=== PATIENT | female | born 1955 | race American Indian/Alaskan Native ===

== ENCOUNTER 2016-06-05 08:22 | Inpatient (IN) | payer MEDICARE ==
[2016-06-05 09:21] LABS: Bilirubin,Urine NEG (Negative); Blood,Urine NEG (Negative); Ketones,Urine 20 mg/dL (Negative); Leukocyte Esterase,Urine NEG (Negative); Nitrite,Urine NEG (Negative); Protein,Urine <15 mg/dL mg/dL (Negative); RBC,Urine < 1.0 /HPF (0.0-6.0); Urobilinogen,Urine < 2.0 mg/dL (<2.0); WBC,Urine < 1.0 /HPF (0.0-6.0)
[2016-06-05 09:25] LABS: Basophils % (Auto) 0.5 % (0.0-1.8); Eosinophils % (Auto) 0.1 % (0.0-4.3); Hematocrit 39.9 % (30.3-42.9); Hemoglobin 12.5 gm/dl (10.1-14.3); Mean Corpuscular HGB Conc 31 % (30-34); Mean Corpuscular Hemoglobin 30 pg (28-32); Mean Corpuscular Volume 95 fl (79-97); Platelet Count 229 K/mm3 (140-440); Red Blood Count 4.22 M/mm3 (3.65-5.03); Red Cell Distribution Width 14.3 % (13.2-15.2); White Blood Count 15.4 K/mm3 (4.5-11.0)
[2016-06-05 09:38] LABS: BUN/Creatinine Ratio 17.14; Calcium 9.4 mg/dL (8.4-10.2); Chloride 90.4 mmol/L (98-107); Potassium 5.1 mmol/L (3.6-5.0)
[2016-06-05 09:41] LABS: B-Hydroxybutyrate 59.2 mg/dL (0.2-2.8)
[2016-06-05] MEDS ORDERED: NACL 0.9% 1000 ML IV ONE (09:43)
[2016-06-05] MEDS ORDERED: NACL 0.9% 1000 ML 1,000 ML IV ONE (09:56)
[2016-06-05] MEDS ORDERED: D50W (25GM) IV PRN (09:57)
[2016-06-05] MEDS ORDERED: BABY ASPIRIN PO ONE (09:59)
--- NOTE | 2016-06-05 09:59 | Emergency Department Report ---
HPI - General Chief Complaint: Nausea/Vomiting/Diarrhea - HPI HPI: The patient is a 60-year-old female with a history of diabetes, who presents for evaluation of abdominal pain, and nausea and vomiting. The patient reports generalized sharp in quality abdominal pain since last night, moderate in severity, exacerbated with retching, and associated with nausea and multiple episodes of nonbilious, nonbloody emesis. She states that her vomiting has been severe and persistent. The patient denies fever, diarrhea, blood in the stool, dark tarry stool, dysuria, hematuria, flank pain, genital discharge, inability to pass flatus. ED Past Medical Hx - Past Medical History Previous Medical History?: Yes Hx Hypertension: Yes Hx CVA: Yes (Last stroke 2014) Hx Congestive Heart Failure: No Hx Diabetes: Yes Hx GERD: Yes Hx Arthritis: Yes Hx Asthma: No Hx COPD: No Additional medical history: 2 herniated discs - Surgical History Past Surgical History?: Yes Additional Surgical History: hyst. - Social History Smoking Status: Never Smoker Substance Use Type: Non Opiate Pain, Prescribed - Medications Home Medications: Home Medications Medication Instructions Recorded Confirmed Last Taken Type Baclofen 10 mg PO BID 09/19/13 06/05/16 06/04/16 History Carvedilol [Coreg] 25 mg PO BID 09/19/13 06/05/16 06/04/16 History Insulin Regular, Human [HumuLIN R] See Protocol SQ AC 09/19/13 06/05/16 1 Day Ago History amLODIPine [Norvasc] 10 mg PO DAILY 09/19/13 06/05/16 06/04/16 History Aspirin [Aspirin BABY CHEW TAB] 81 mg PO DAILY 09/22/13 06/05/16 1 Day Ago History Ibuprofen/Oxycodone HCl 10 mg PO Q6H PRN 09/22/13 05/27/15 04/06/14 History [oxyCODONE-Ibuprofen 5/400 Tab] Insulin Glargine,Hum.rec.anlog 20 units SQ BID #1 vial 09/22/13 05/27/15 Rx [Lantus] Losartan [Cozaar] 100 mg PO DAILY 09/22/13 06/05/16 06/04/16 History Insulin Glargine,Hum.rec.anlog See Protocol SQ HS 05/27/15 06/05/16 1 Day Ago History [Lantus] Lovastatin [Altoprev] 20 mg PO QPM 05/27/15 06/05/16 06/04/16 History Omeprazole [PriLOSEC] 20 mg PO QDAY 05/27/15 06/05/16 06/04/16 History Clopidogrel Bisulfate [Plavix] 75 mg PO DAILY 06/05/16 06/05/16 Unknown History Diazepam Tab [Valium] 5 mg PO QHS PRN 06/05/16 06/05/16 Unknown History Meclizine [Antivert] 25 mg PO TID PRN 06/05/16 06/05/16 Unknown History Vitamin D3 1 tab PO HS 06/05/16 06/05/16 Unknown History traMADol [Ultram] 50 mg PO Q6HR PRN 06/05/16 06/05/16 Unknown History ED Review of Systems ROS: Stated complaint: NAUSEA/VOMITING Other details as noted in HPI Constitutional: denies: fever ENT: denies: throat or neck pain Respiratory: denies: cough, shortness of breath Cardiovascular: denies: chest pain Endocrine: denies unexplained weight loss or gain Gastrointestinal: reports abdominal pain, nausea Genitourinary: denies: dysuria Musculoskeletal: denies: leg swelling Skin: denies: rash Neurological: denies: headache Hematological/Lymphatic: denies: easy bleeding or easy bruising Psych: denies sadness or hopelessness Physical Exam - Physical Exam Vital Signs: Vital Signs 06/05/16 06/05/16 06/05/16 08:28 08:33 09:01 Temperature 98.1 F Pulse Rate 81 81 Respiratory 25 H 18 16 Rate Blood Pressure 133/60 133/60 O2 Sat by Pulse 100 100 99 Oximetry 06/05/16 09:06 Temperature Pulse Rate Respiratory 16 Rate Blood Pressure O2 Sat by Pulse 100 Oximetry Physical Exam: General: well-nourished, well-developed, no acute distress Head: Normocephalic, atraumatic Eyes: normal sclera ENT: Mucous membranes are pale and dry Neck: No neck stiffness, no cervical adenopathy Respiratory: Breath sounds equal bilaterally, no wheezing, rales, or rhonchi Cardio: S1 and S2 present, no murmurs, rubs, gallops, capillary refill is delayed Abdomen: Normoactive bowel sounds, soft abdomen, generalized tenderness to palpation present, no rigidity, no guarding or rebound tenderness Musc: No pitting edema Skin: No rash Neuro: no facial drooping, normal speech Psych: Normal affect ED Course Vital Signs 06/05/16 06/05/16 06/05/16 08:28 08:33 09:01 Temperature 98.1 F Pulse Rate 81 81 Respiratory 25 H 18 16 Rate Blood Pressure 133/60 133/60 O2 Sat by Pulse 100 100 99 Oximetry 06/05/16 09:06 Temperature Pulse Rate Respiratory 16 Rate Blood Pressure O2 Sat by Pulse 100 Oximetry ED Medical Decision Making - Lab Data Result diagrams: 06/05/16 09:11 06/05/16 12:04 - Medical Decision Making The patient was seen and examined by myself. The patient is placed on a assistant manager quality management and continuous pulse ox. On initial evaluation, the patient was found to be in no distress. Evaluation orders were placed. The patient received 1 L normal saline fluid bolus via EMS in route. The patient is given IV morphine for her pain. Lab results reveal leukocytosis, WBC 15, elevated glucose 669, elevated anion gap, low pH 7.22, and elevated ketones 59, consistent with metabolic acidosis secondary to diabetic ketoacidosis. The patient is given a second liter normal saline fluid bolus, and IV insulin bolus, and started on insulin drip. The on- call hospitalist service was contacted. They agreed to admit the patient for further treatment and close monitoring. The ED admit order was placed. The patient was admitted in guarded condition. Critical care attestation.: If time is entered above; I have spent that time in minutes in the direct care of this critically ill patient, excluding procedure time. ED Disposition Clinical Impression: Dehydration, Acute generalized abdominal pain DKA (diabetic ketoacidosis) Qualifiers: Diabetes mellitus type: type 2 Diabetes mellitus complication detail: without coma Qualified Code(s): E13.10 - Other specified diabetes mellitus with ketoacidosis without coma Disposition: OP ADMITTED IP TO THIS HOSP Is pt being admited?: Yes Does the pt Need Aspirin: Yes Condition: Serious Time of Disposition: 09:58
--- NOTE | 2016-06-05 10:22 | Admit Criteria Form ---
Admission Criteria Documentation: DIABETES Clinical Indications for Admission to Inpatient Care (Place 'X' for any and all applicable criteria): Admission is indicated by presence of ALL (if I & II) or ANY ONE (if III or IV) of the following (1)(2)(3)(4): [ X]I. Diabetes is uncontrolled as indicated by ANY ONE of the following: [X ]a) Diabetic ketoacidosis as indicated by ALL of the following (8): [X ]i) Hyperglycemia (eg, plasma glucose greater than 200 mg /dL (11.1 mmol/L)) [X ]ii) Acidosis (eg, arterial pH less than 7.30, serum bicarbonate level less than 15 mEq/L (mmol/L)) [ X]iii) Moderate ketonuria or ketonemia [ ]b) Hyperglycemic hyperosmolar state as indicated by ALL of the following(9)(10): [ ]i) Neurologic dysfunction (eg, stupor, coma, hemiparesis , seizure)(13) [ ]ii) Plasma glucose greater than 600 mg/dL (33.3 mmol/L) [ ]iii) Serum osmolality greater than 320 mOsm/kg (mmol/kg) [ ]c) Severe signs or symptoms secondary to hyperglycemia indicated by ANY ONE of the following: [ ]i) Altered mental status(10) [ ]ii) Significant hypovolemia or dehydration [ ]iii) Intractable nausea or vomiting [ ]iv) Unexplained fever or severe infection [ ]v) Severe electrolyte abnormality (eg, hypokalemia, hyperkalemia, hypernatremia) [ X]II. Management at other levels of care (Also use Diabetes: Observation Care as appropriate) is not feasible because of ANY ONE of the following: [X ]a) Condition was not adequately corrected with treatment at other levels of care. [ ]b) Treatment at other levels of care is not appropriate because of condition severity (eg, hyperosmolar coma). [ ]III. Contraindications and/or Inappropriate clinical situations for Observational Care in patients with Diabetes, when ANY ONE of the following is required: [ ]a) Patient require specific diagnostic workup or therapeutic intervention 22 [ ]b) Patient with abnormal vital signs or altered mental status 23 [ ]IV. General contraindications and/or Inappropriate clinical situations for Observational Care in patients with Diabetes, when ANY ONE of the following is required: [ ]a) Prediction of prolongation of LOS based on ANY ONE of the following may be considered as a contraindication for observational care 2, 3, 4, 5, 6, 7, 8, 9, 10, 11 [ ]i) Age > 65 yrs. [ ]ii) Patient arriving by ambulance [ ]iii) Patient with high acuity [ ]iv) Patient requiring vital sign monitoring [ ]v) Patient on IV medication [ ]b) Systolic blood pressures 180mmHg 3,12 [ ]c) Patient with altered mental status including delirium and other alteration of consciousness, (3) [ ]d) Patient whose discharge disposition will be to a nursing home home or rehabilitation home should not be managed in Emergency Department Observation Unit. CMS rule requires 3 days hospital stay before such placement.3,13 [ ]e) Patient with failure to thrive due to broad array of etiologies 3,16,17 [ ]f) Inability to ambulate 3,14 Extended stay beyond goal length of stay may be needed for(3)(20): [ ]a) Treatment of precipitating causes [ ]b) Development of hypoglycemia [ ]c) Complications of treatment [ ]d) Complications of decompensated diabetes (eg, acute gastric dilatation, persistent metabolic or neurologic derangement) [ ]e) Active Comorbidities [ ]f) Older patients( 65 years or older) The original [employer] content created by [employer] has been revised. The portions of the content which have been revised are identified through the use of italic text or in bold,and [facility] has neither reviewed nor approved the modified material. All other unmodified content is copyright [employer]. Please see references footnoted in the original [facility] edition 2016 Admission Criteria Met: Yes
[2016-06-05 10:58] LABS: BUN/Creatinine Ratio 19.16; Calcium 9.3 mg/dL (8.4-10.2); Chloride 94.8 mmol/L (98-107); Potassium 4.9 mmol/L (3.6-5.0)
[2016-06-05] MEDS ORDERED: NovoLIN R 100 UNITS in NACL 0.9% 99 ML IV SCH (11:00)
--- NOTE | 2016-06-05 11:18 | History and Physical Report ---
History of Present Illness Date of examination: 06/05/16 Date of admission: 06/05/16 Chief complaint: nausea, vomiting, abdominal pain x 1 week History of present illness: Patient is 60-year-old with history of diabetes mellitus type 2 ,hypertension, stroke, GERD hyperlipidemia. She presents with one-day history of nausea vomiting and generalized weakness. She states that she vomited more than 6 times. Vomitus is nonbloody. She denies any chest pain or shortness of breath. Patient states she has been compliant with her insulin and has been taking it as prescribed. Emergency department she was diagnosed with diabetic ketoacidosis with a glucose level of 669 and CO@ of 13. She is being admitted to intensive care unit on insulin drip. Past History Past Medical History: diabetes, GERD, hypertension, hyperlipidemia, stroke Past Surgical History: hysterectomy Social history: , smoking (no smoking), alcohol abuse (no alcohol), full code Family history: CAD, cancer Medications and Allergies Allergies Allergy/AdvReac Type Severity Reaction Status Date / Time No Known Allergies Allergy Verified 01/07/16 22:32 Home Medications Medication Instructions Recorded Confirmed Last Taken Type Baclofen 10 mg PO BID 09/19/13 06/05/16 06/04/16 History Carvedilol [Coreg] 25 mg PO BID 09/19/13 06/05/16 06/04/16 History Insulin Regular, Human [HumuLIN R] See Protocol SQ AC 09/19/13 06/05/16 1 Day Ago History amLODIPine [Norvasc] 10 mg PO DAILY 09/19/13 06/05/16 06/04/16 History Aspirin [Aspirin BABY CHEW TAB] 81 mg PO DAILY 09/22/13 06/05/16 1 Day Ago History Ibuprofen/Oxycodone HCl 10 mg PO Q6H PRN 09/22/13 05/27/15 04/06/14 History [oxyCODONE-Ibuprofen 5/400 Tab] Insulin Glargine,Hum.rec.anlog 20 units SQ BID #1 vial 09/22/13 05/27/15 Rx [Lantus] Losartan [Cozaar] 100 mg PO DAILY 09/22/13 06/05/16 06/04/16 History Insulin Glargine,Hum.rec.anlog See Protocol SQ HS 05/27/15 06/05/16 1 Day Ago History [Lantus] Lovastatin [Altoprev] 20 mg PO QPM 05/27/15 06/05/16 06/04/16 History Omeprazole [PriLOSEC] 20 mg PO QDAY 05/27/15 06/05/16 06/04/16 History Clopidogrel Bisulfate [Plavix] 75 mg PO DAILY 06/05/16 06/05/16 Unknown History Diazepam Tab [Valium] 5 mg PO QHS PRN 06/05/16 06/05/16 Unknown History Meclizine [Antivert] 25 mg PO TID PRN 06/05/16 06/05/16 Unknown History Vitamin D3 1 tab PO HS 06/05/16 06/05/16 Unknown History traMADol [Ultram] 50 mg PO Q6HR PRN 06/05/16 06/05/16 Unknown History Active Meds: Active Medications Dextrose (D50w (25gm)) 0 ml IV PRN PRN PRN Reason: Hypoglycemia Insulin Human Regular 100 (units/ Sodium Chloride) 100 mls @ 1 mls/hr IV TITR JUAN M; 1 UNITS/HR PRN Reason: Protocol Last Titration: 06/05/16 10:56 Dose: 8 units/hr Review of Systems All systems: negative (no chest pain, no SOB, no fever, no abd pain. All other systems reviewed and are negative) Exam - Constitutional Vitals: Temp Pulse Resp BP Pulse Ox 98.1 F 81 16 133/60 100 06/05/16 08:33 06/05/16 09:01 06/05/16 09:06 06/05/16 09:01 06/05/16 09:06 General appearance: Present: no acute distress - EENT Eyes: Present: PERRL, EOM intact ENT: hearing intact, clear oral mucosa - Neck Neck: Present: supple, normal ROM - Respiratory Respiratory effort: normal Respiratory: bilateral: CTA, negative: diminished, rales, rhonchi, wheezing - Cardiovascular Rhythm: regular Heart Sounds: Present: S1 & S2 (S1 and S2 regular, no murmurs rubs or gallops) - Extremities Extremities: no ischemia, No edema, normal temperature, normal color - Abdominal General gastrointestinal: Present: soft, non-tender, non-distended, normal bowel sounds - Integumentary Integumentary: Present: clear, warm, dry - Musculoskeletal Musculoskeletal: strength equal bilaterally - Psychiatric Psychiatric: appropriate mood/affect, intact judgment & insight - Neurologic Neurologic: moves all extremities, other (AAO x 3, no focal neurologic signs) Results - Labs CBC & Chem 7: 06/05/16 09:11 06/05/16 12:04 Labs: Abnormal lab results 06/05/16 06/05/16 06/05/16 Range/Units 08:44 09:11 09:11 WBC 15.4 H (4.5-11.0) K/mm3 Lymph % (Auto) 7.8 L (13.4-35.0) % Seg Neutrophils % 87.4 H (40.0-70.0) % Seg Neutrophils # 13.4 H (1.8-7.7) K/mm3 VBG pH (7.320-7.420) Sodium 132 L (137-145) mmol/L Potassium 5.1 H (3.6-5.0) mmol/L Chloride 90.4 L (98-107) mmol/L Carbon Dioxide 13 L (22-30) mmol/L BUN 24 H (7-17) mg/dL Creatinine 1.4 H (0.7-1.2) mg/dL Glucose 669 H* (65-100) mg/dL POC Glucose > 500 H (70-105) Ketones 59.2 H (0.2-2.8) mg/dL 06/05/16 06/05/16 06/05/16 Range/Units 09:11 10:29 10:54 WBC (4.5-11.0) K/mm3 Lymph % (Auto) (13.4-35.0) % Seg Neutrophils % (40.0-70.0) % Seg Neutrophils # (1.8-7.7) K/mm3 VBG pH 7.227 L (7.320-7.420) Sodium (137-145) mmol/L Potassium (3.6-5.0) mmol/L Chloride 94.8 L (98-107) mmol/L Carbon Dioxide 11 L (22-30) mmol/L BUN 23 H (7-17) mg/dL Creatinine (0.7-1.2) mg/dL Glucose 654 H* (65-100) mg/dL POC Glucose > 500 H (70-105) Ketones (0.2-2.8) mg/dL Assessment and Plan Diabetic ketoacidosis. Admit to intensive care unit. Insulin drip. Normal saline at 150 mL an hour. To change IV fluid to D5 half-normal saline when blood glucose less than 250. Serial BNP levels. fingerstick glucose level every hr, NPO except meds. Consult [facility] per protocol. Hypertension. Blood pressure stable. Continue Norvasc, Coreg and losartan. Hyperkalemia. This should improve with insulin drip and IV fluids. Acute kidney injury with Cr of 1.4. Repeat BMP. leukocytosis, likely reactive from DKA. Monitor. Dehydration. iv fluids Hyperlipidemia History of GERD. pepcid DVT prophylaxis with heparin Full CODE STATUS
[2016-06-05] MEDS: BABY ASPIRIN PO SCH ×2 (11:57→12:13)
[2016-06-05] MEDS ORDERED: DULCOLAX PR PRN (12:00)
[2016-06-05] MEDS ORDERED: ALUM-MAG HYDROX-SIMETH 200-200-20MG/5ML PO PRN (12:00)
[2016-06-05] MEDS: PLAVIX PO SCH (12:06)
[2016-06-05] MEDS: NORVASC PO SCH (12:06)
[2016-06-05] MEDS: NACL 0.9% 1000 ML 1,000 ML IV SCH ×2 (12:07→20:33)
[2016-06-05] MEDS ORDERED: MILK OF MAGNESIA PO PRN (12:30)
[2016-06-05] MEDS ORDERED: ANTIVERT PO PRN (12:30)
[2016-06-05] MEDS ORDERED: ZOFRAN IV PRN (12:30)
--- NOTE | 2016-06-05 12:41 | Consultation ---
History of Present Illness Consult date: 06/05/16 Requesting physician: MAYKEL JIMENEZ Reason for consult: other (DKA) History of present illness: PULMONARY/CCM CONSULT (Full dictation # [id number]) Please see dictated notes for full details Medications and Allergies Allergies Allergy/AdvReac Type Severity Reaction Status Date / Time No Known Allergies Allergy Verified 01/07/16 22:32 Home Medications Medication Instructions Recorded Confirmed Last Taken Type Baclofen 10 mg PO BID 09/19/13 06/05/16 06/04/16 History Carvedilol [Coreg] 25 mg PO BID 09/19/13 06/05/16 06/04/16 History Insulin Regular, Human [HumuLIN R] See Protocol SQ AC 09/19/13 06/05/16 1 Day Ago History amLODIPine [Norvasc] 10 mg PO DAILY 09/19/13 06/05/16 06/04/16 History Aspirin [Aspirin BABY CHEW TAB] 81 mg PO DAILY 09/22/13 06/05/16 1 Day Ago History Ibuprofen/Oxycodone HCl 10 mg PO Q6H PRN 09/22/13 05/27/15 04/06/14 History [oxyCODONE-Ibuprofen 5/400 Tab] Insulin Glargine,Hum.rec.anlog 20 units SQ BID #1 vial 09/22/13 05/27/15 Rx [Lantus] Losartan [Cozaar] 100 mg PO DAILY 09/22/13 06/05/16 06/04/16 History Insulin Glargine,Hum.rec.anlog See Protocol SQ HS 05/27/15 06/05/16 1 Day Ago History [Lantus] Lovastatin [Altoprev] 20 mg PO QPM 05/27/15 06/05/16 06/04/16 History Omeprazole [PriLOSEC] 20 mg PO QDAY 05/27/15 06/05/16 06/04/16 History Clopidogrel Bisulfate [Plavix] 75 mg PO DAILY 06/05/16 06/05/16 Unknown History Diazepam Tab [Valium] 5 mg PO QHS PRN 06/05/16 06/05/16 Unknown History Meclizine [Antivert] 25 mg PO TID PRN 06/05/16 06/05/16 Unknown History Vitamin D3 1 tab PO HS 06/05/16 06/05/16 Unknown History traMADol [Ultram] 50 mg PO Q6HR PRN 06/05/16 06/05/16 Unknown History Active Meds: Active Medications Al Hydrox/Mg Hydrox/Simethicone (Alum-Mag Hydrox-Simeth [id number]/5ml) 30 ml PO Q4H PRN PRN Reason: Indigestion Amlodipine Besylate (Norvasc) 10 mg PO DAILY [facility] Last Admin: 06/05/16 12:06 Dose: 10 mg Aspirin (Baby Aspirin) 81 mg PO DAILY [facility] Last Admin: 06/05/16 12:13 Dose: Not Given Baclofen (Lioresal) 10 mg PO BID [facility] Bisacodyl (Dulcolax) 10 mg WA QDAY PRN PRN Reason: constipation unrelieved by MOM Carvedilol (Coreg) 25 mg PO BID [facility] Clopidogrel Bisulfate (Plavix) 75 mg PO DAILY [facility] Last Admin: 06/05/16 12:06 Dose: 75 mg Dextrose (D50w (25gm)) 0 ml IV PRN PRN PRN Reason: Hypoglycemia Diazepam (Valium) 5 mg PO QHS PRN PRN Reason: Sleep Heparin Sodium (Porcine) (Heparin) 5,000 unit SUB-Q Q8HR [facility] Insulin Human Regular 100 (units/ Sodium Chloride) 100 mls @ 1 mls/hr IV TITR JUAN M; 1 UNITS/HR PRN Reason: Protocol Last Titration: 06/05/16 10:56 Dose: 8 units/hr Sodium Chloride (Nacl 0.9% 1000 Ml) 1,000 mls @ 125 mls/hr IV DIRECT [facility] Last Admin: 06/05/16 12:07 Dose: 125 mls/hr Magnesium Hydroxide (Milk Of Magnesia) 30 ml PO Q4H PRN PRN Reason: Constipation Meclizine HCl (Antivert) 25 mg PO TID PRN PRN Reason: Vertigo Miscellaneous Medication (Losartan [Cozaar]) 100 mg PO DAILY [facility] Miscellaneous Medication (Lovastatin [Altoprev]) 20 mg PO QPM [facility] Miscellaneous Medication (Omeprazole [Prilosec]) 20 mg PO QDAY [facility] Miscellaneous Medication (Vitamin D3) 1 tab PO HS [facility] Morphine Sulfate (Morphine) 2 mg IV Q4H PRN PRN Reason: Pain, Moderate (4-6) Ondansetron HCl (Zofran) 4 mg IV Q8H PRN PRN Reason: N/V Physical Examination Vital signs: Vital Signs Resp Pulse Ox 25 H 100 06/05/16 08:28 06/05/16 08:28 Results - Laboratory Findings CBC and BMP: 06/05/16 09:11 06/06/16 08:18
[2016-06-05 12:53] LABS: BUN/Creatinine Ratio 19.16; Calcium 9.2 mg/dL (8.4-10.2); Chloride 100.1 mmol/L (98-107); Potassium 5.3 mmol/L (3.6-5.0)
[2016-06-05 14:14] LABS: Magnesium 1.8 mg/dL (1.7-2.3); Phosphorous 3.1 mg/dL (2.5-4.5)
[2016-06-05 14:29] LABS: BUN/Creatinine Ratio 17.5; Calcium 9.1 mg/dL (8.4-10.2); Chloride 100.2 mmol/L (98-107); Potassium 4.3 mmol/L (3.6-5.0)
[2016-06-05] MEDS: HEPARIN SUB-Q SCH ×2 (14:51→21:14)
[2016-06-05 16:35] LABS: BUN/Creatinine Ratio 17.5; Calcium 9.4 mg/dL (8.4-10.2); Chloride 101.7 mmol/L (98-107); Potassium 4.2 mmol/L (3.6-5.0)
[2016-06-05] MEDS: COZAAR PO SCH (17:40)
[2016-06-05] MEDS: PROTONIX PO SCH (17:41)
[2016-06-05] MEDS: VITAMIN D3 PO SCH (21:14)
[2016-06-05] MEDS: LIORESAL PO SCH (21:14)
[2016-06-05] MEDS: COREG PO SCH (21:15)
[2016-06-05] MEDS: ZOCOR PO SCH (21:15)
[2016-06-05] MEDS ORDERED: NON-FORMULARY (Baclofen [Baclofen] 10 MG) PO SCH (22:00)
[2016-06-05] MEDS ORDERED: VALIUM PO PRN (22:00)
[2016-06-06] MEDS: NACL 0.9% 1000 ML 1,000 ML IV SCH (04:20)
[2016-06-06] MEDS: HEPARIN SUB-Q SCH ×3 (05:28→21:14)
[2016-06-06] MEDS: MORPHINE IV PRN (06:26)
[2016-06-06 08:52] LABS: BUN/Creatinine Ratio 15.71; Blood Urea Nitrogen 11 mg/dL (7-17); Calcium 8.7 mg/dL (8.4-10.2); Carbon Dioxide 22 mmol/L (22-30); Chloride 110.2 mmol/L (98-107); Glucose 129 mg/dL (65-100); Potassium 3.9 mmol/L (3.6-5.0); Sodium 145 mmol/L (137-145)
[2016-06-06 08:54] LABS: Anion Gap 17 mmol/L
[2016-06-06] MEDS ORDERED: D5W/0.45% NACL/KCL 20 MEQ 1,000 ML IV SCH (09:00)
[2016-06-06] MEDS: PLAVIX PO SCH (09:43)
[2016-06-06] MEDS: COZAAR PO SCH (09:43)
[2016-06-06] MEDS: LIORESAL PO SCH ×2 (09:44→21:13)
[2016-06-06] MEDS: PROTONIX PO SCH (09:44)
[2016-06-06] MEDS: COREG PO SCH ×2 (09:44→21:13)
[2016-06-06] MEDS: NORVASC PO SCH (09:51)
[2016-06-06] MEDS: BABY ASPIRIN PO SCH (10:10)
[2016-06-06] MEDS ORDERED: D50W (25GM) IV PRN (11:41)
--- NOTE | 2016-06-06 11:45 | Progress Note ---
Assessment and Plan Assessment and plan: 1. DKA resolving, will continue insulin drip for now, but start subq insulin later and transition to Subq insulin, start diet 2. HTN well controlled, continue current meds 3. MAYUR/ Vasomotor nephropathy has resolved with IVFluids 4. Hyperkalemia extra cellular shift of K was likely due to insulin deficiency, has now corrected Critical Time spent: 35 minutes History Interval history: nausea has resolved , feels better now Hospitalist Physical - Constitutional Vitals: Temp Pulse Resp BP Pulse Ox 98.6 F 71 15 125/53 100 06/06/16 07:53 06/06/16 09:44 06/06/16 06:26 06/06/16 09:51 06/05/16 14:00 General appearance: Present: no acute distress - EENT Eyes: Present: EOM intact ENT: hearing intact - Neck Neck: Present: supple - Respiratory Respiratory effort: normal Respiratory: bilateral: CTA - Cardiovascular Rhythm: regular - Extremities Extremities: no ischemia, No edema Peripheral Pulses: within normal limits - Abdominal General gastrointestinal: soft, non-tender, non-distended, normal bowel sounds - Integumentary Integumentary: Present: clear, warm, dry - Psychiatric Psychiatric: appropriate mood/affect - Neurologic Neurologic: CNII-XII intact, no focal deficits Results - Labs CBC & Chem 7: 06/05/16 09:11 06/06/16 08:18 Labs: Laboratory Last Values WBC 15.4 K/mm3 (4.5-11.0) H 06/05/16 09:11 RBC 4.22 M/mm3 (3.65-5.03) 06/05/16 09:11 Hgb 12.5 gm/dl (10.1-14.3) 06/05/16 09:11 Hct 39.9 % (30.3-42.9) 06/05/16 09:11 MCV 95 fl (79-97) 06/05/16 09:11 MCH 30 pg (28-32) 06/05/16 09:11 MCHC 31 % (30-34) 06/05/16 09:11 RDW 14.3 % (13.2-15.2) 06/05/16 09:11 Plt Count 229 K/mm3 (140-440) 06/05/16 09:11 Lymph % (Auto) 7.8 % (13.4-35.0) L 06/05/16 09:11 Randall % (Auto) 4.2 % (0.0-7.3) 06/05/16 09:11 Eos % (Auto) 0.1 % (0.0-4.3) 06/05/16 09:11 Baso % (Auto) 0.5 % (0.0-1.8) 06/05/16 09:11 Lymph # 1.2 K/mm3 (1.2-5.4) 06/05/16 09:11 Randall # 0.6 K/mm3 (0.0-0.8) 06/05/16 09:11 Eos # 0.0 K/mm3 (0.0-0.4) 06/05/16 09:11 Baso # 0.1 K/mm3 (0.0-0.1) 06/05/16 09:11 Seg Neutrophils % 87.4 % (40.0-70.0) H 06/05/16 09:11 Seg Neutrophils # 13.4 K/mm3 (1.8-7.7) H 06/05/16 09:11 VBG pH 7.227 (7.320-7.420) L 06/05/16 09:11 Sodium 145 mmol/L (137-145) 06/06/16 08:18 Potassium 3.9 mmol/L (3.6-5.0) 06/06/16 08:18 Chloride 110.2 mmol/L (98-107) H 06/06/16 08:18 Carbon Dioxide 22 mmol/L (22-30) 06/06/16 08:18 Anion Gap 17 mmol/L 06/06/16 08:18 BUN 11 mg/dL (7-17) 06/06/16 08:18 Creatinine 0.7 mg/dL (0.7-1.2) 06/06/16 08:18 Estimated GFR > 60 ml/min 06/06/16 08:18 BUN/Creatinine Ratio 15.71 % 06/06/16 08:18 Glucose 129 mg/dL (65-100) H 06/06/16 08:18 POC Glucose 176 (70-105) H 06/06/16 10:06 Hemoglobin A1c 11.4 % (4-6) H 06/05/16 10:29 Calcium 8.7 mg/dL (8.4-10.2) 06/06/16 08:18 Phosphorus 3.1 mg/dL (2.5-4.5) 06/05/16 10:29 Magnesium 1.8 mg/dL (1.7-2.3) 06/05/16 10:29 Urine Color Straw (Yellow) 06/05/16 09:00 Urine Turbidity Clear (Clear) 06/05/16 09:00 Urine pH 5.0 (5.0-7.0) 06/05/16 09:00 Ur Specific [place] 1.012 (1.003-1.030) 06/05/16 09:00 Urine Protein <15 mg/dl mg/dL (Negative) 06/05/16 09:00 Urine Glucose (UA) >=500 mg/dL (Negative) 06/05/16 09:00 Urine Ketones 20 mg/dL (Negative) 06/05/16 09:00 Urine Blood Neg (Negative) 06/05/16 09:00 Urine Nitrite Neg (Negative) 06/05/16 09:00 Urine Bilirubin Neg (Negative) 06/05/16 09:00 Urine Urobilinogen < 2.0 mg/dL (<2.0) 06/05/16 09:00 Ur Leukocyte Esterase Neg (Negative) 06/05/16 09:00 Urine WBC (Auto) < 1.0 /HPF (0.0-6.0) 06/05/16 09:00 Urine RBC (Auto) < 1.0 /HPF (0.0-6.0) 06/05/16 09:00 U Epithel Cells (Auto) < 1.0 /HPF (0-13.0) 06/05/16 09:00 Hyaline Casts 2 /LPF 06/05/16 09:00 Ketones 59.2 mg/dL (0.2-2.8) H 06/05/16:11
[2016-06-06] MEDS ORDERED: LEVEMIR SUB-Q SCH ×2 (12:00→22:00)
--- NOTE | 2016-06-06 12:36 | Progress Note ---
Assessment and Plan - Patient Problems (1) Acute generalized abdominal pain Current Visit: Yes Status: Acute Plan to address problem: - resolved - likely related to DKA (2) DKA (diabetic ketoacidosis) Current Visit: Yes Status: Acute Plan to address problem: - resolved - SSI - introduce home medications (3) Altered mental status Current Visit: No Status: Acute Plan to address problem: - improved - follow clinically Subjective Date of service: 06/06/16 Principal diagnosis: DKA Interval history: seen and examined at bedside; 24hour events reviewed; nursing and respiratory care staff consulted; no adverse overnight events reported to me; resting peacefully; feels better; denies acute chest pains or increased SOB; No N/V/F/C Objective Vital Signs - 12hr 06/06/16 06/06/16 06/06/16 04:00 06:26 07:53 Temperature 98.6 F 98.6 F Pulse Rate Respiratory 15 Rate Blood Pressure 06/06/16 06/06/16 06/06/16 09:43 09:44 09:51 Temperature Pulse Rate 71 Respiratory Rate Blood Pressure 125/53 125/53 125/53 06/06/16 12:00 Temperature 98.5 F Pulse Rate Respiratory Rate Blood Pressure Constitutional: no acute distress Eyes: non-icteric ENT: oropharynx moist Neck: supple, no lymphadenopathy Effort: normal Ascultation: Bilateral: clear Cardiovascular: regular rate and rhythm Gastrointestinal: normoactive bowel sounds, soft, non-tender, non-distended Integumentary: normal Extremities: no cyanosis, no edema, pulses normal, no ischemia or petechiae Neurologic: normal mental status, pupils equal and round, unable to assess Psychiatric: mood appropriate, affect normal CBC and BMP: 06/05/16 09:11 06/06/16 08:18 Abnormal lab findings: Abnormal Labs 06/05/16 06/05/16 06/05/16 12:04 14:03 15:50 Chloride Carbon Dioxide 9 L* 15 L BUN 23 H 21 H Glucose 526 H* 400 H POC Glucose 265 H 06/05/16 06/05/16 06/05/16 15:53 16:50 18:18 Chloride Carbon Dioxide 18 L BUN 21 H Glucose 271 H POC Glucose 172 H 119 H 06/05/16 06/05/16 06/05/16 21:01 22:08 23:17 Chloride Carbon Dioxide BUN Glucose POC Glucose 111 H 129 H 123 H 06/06/16 06/06/16 06/06/16 00:12 01:24 02:08 Chloride Carbon Dioxide BUN Glucose POC Glucose 148 H 127 H 117 H 06/06/16 06/06/16 06/06/16 03:07 05:31 06:02 Chloride Carbon Dioxide BUN Glucose POC Glucose 119 H 198 H 184 H 06/06/16 06/06/16 06/06/16 06:56 07:56 08:18 Chloride 110.2 H Carbon Dioxide BUN Glucose 129 H POC Glucose 153 H 128 H 06/06/16 06/06/16 06/06/16 08:55 10:06 11:11 Chloride Carbon Dioxide BUN Glucose POC Glucose 133 H 176 H 171 H 06/06/16 12:33 Chloride Carbon Dioxide BUN Glucose POC Glucose 149 H
[2016-06-06] MEDS: NOVOLOG SUB-Q SCH ×2 (17:41→21:14)
[2016-06-06] MEDS: VITAMIN D3 PO SCH (21:13)
[2016-06-06] MEDS: ZOCOR PO SCH (21:13)
--- NOTE | 2016-06-07 02:30 | Consultation ---
CONSULTING PHYSICIAN: Neo Toussaint MD REASON FOR CONSULTATION: Diabetic ketosis acidosis, need for ICU admission. CHIEF COMPLAINT AND HISTORY OF PRESENT ILLNESS: The patient is a 60-year-old female with past medical history indeed significant for diabetes, reportedly type 2 diabetes, came in with a 1 day history of nausea, vomiting, and generalized weakness. She denied medication noncompliance, she states she has been taking her medications as ordered and using her glucose scans. When I asked her what her last serum glucose was she could not remember. She denied any chest pain, shortness of breath again. She denied any hematemesis, just emesis of food contents. She is apparently on insulin at home and states she did run out. She was brought into the ER secondary to this and found to have a serum sugars of 669 and bicarbonate of 13 and elevated anion gap, and exam was consistent with a diabetic ketoacidosis hence the admission. When I stopped by to see her in the Emergency Room, she was on IV insulin at about 4 units per hour. She states she was feeling a little bit better. She has not had any episodes of emesis since she has been in the ER. She denied any tobacco use or abuse history whatsoever. That really is as much of the history of presentation as I have. PAST MEDICAL HISTORY: Diabetes, gastroesophageal reflux disease, hypertension, hyperlipidemia, cerebrovascular accident in the past. PAST SURGICAL HISTORY: She has had a hysterectomy. MEDICATIONS: She was on at the time I stopped by to see her, according to the medication administration record included the following: Aspirin 81 mg p.o. daily, Norvasc 10 mg p.o. daily, baclofen 10 mg p.o. b.i.d., Coreg 25 mg p.o. b.i.d., Plavix 75 mg p.o. daily. She was on the IV insulin at 4 units per hour. Valium 5 mg p.o. at bedtime p.r.n. insomnia, heparin 5000 units subcutaneous q. 8h., Cozaar 100 mg p.o. daily, morphine 2 mg IV q. 4h moderate pain, Zofran 4 mg IV q. 8h. p.r.n. nausea and vomiting, Protonix 20 mg p.o. daily, and IV in the meantime, and Zocor 10 mg p.o. at bedtime. All p.o. meds will be on hold until after the diabetic ketoacidosis protocol is complete and reinstituted as per protocol. ALLERGIES: No known drug allergies. DIET: Well-built lady denies any acute weight loss or gain in the preceding few weeks to months. FAMILY AND SOCIAL HISTORY: Lives in the community. There is a family history of coronary artery disease. Denies alcohol, tobacco, or illicit drug use or abuse. REVIEW OF SYSTEMS: No loss of consciousness. No new onset seizures. No new onset focal weakness. No gross hematochezia or melena. No gross hematuria or dysuria. Denies hematemesis. Denies hemoptysis. She did have the nausea and vomiting. No palpitations. Complete review of systems obtained. Pertinent positives and/or negatives as in body of history above, otherwise noncontributory. PHYSICAL EXAMINATION: VITAL SIGNS: At presentation, she was afebrile, temperature 98.1, pulse was 81, respiratory rate 25, blood pressure 133/60, oxygen sats were 100%, inspired oxygen concentration was not recorded. HEENT: Pupils are equal, round, reactive to light. Extraocular muscle movements are intact, about 3 mm, bilaterally. Oropharynx is a Mallampati #2 oropharynx, no significant posterior oropharyngeal erythema or exudation. Grossly, no palpable lymph nodes in the supraclavicular or submandibular lymph node chains, and no gross jugular venous distention. LUNGS: Auscultation of both lung pride was unremarkable. Lungs were clear bilaterally. HEART: Heart sounds 1 and 2 are heard, regular rate and rhythm at the time of my evaluation. ABDOMEN: Soft. Bowel sounds are positive. Nontender. EXTREMITIES: Without overt digital clubbing, cyanosis, or pedal edema. NEUROLOGIC: The exam was grossly nonfocal. LABORATORY DATA: From my review are as follows: White cell count 15,400, hemoglobin 12.5, hematocrit 39.9, platelets 229. Venous blood gas showed a pH of 7.23. Serum sodium 137, potassium 4.9, chloride 95, bicarbonate 11, BUN 23, creatinine 1.2, glucose 654. Hemoglobin A1c was elevated at 11.4. Mag and phos within normal limits. Urinalysis negative for nitrites and leukocyte esterase and essentially bland. Serum ketones were elevated at 59.2. No radiographic images for my review. ASSESSMENT AND PLAN: We have a lady in here, probably an element of noncompliance, in with diabetic ketoacidosis despite stating that she had been on IV insulin therapy. She is requiring IV insulin therapy. She will be admitted to the ICU for close monitoring. I have counseled better compliance. She is appropriately on GI and DVT prophylaxis. I doubt we are dealing with a true infection despite the leukocytosis, I believe that is related to the diabetic ketoacidosis. She does have a history of coronary artery disease. Cardiology evaluation will be at the behest of the attending physician. She has no clinical symptoms to suggest an acute coronary event otherwise, apart from the nausea and vomiting, which are more consistent with a DKA. Flu and pneumonia vaccination will be per protocol. Thank you very much for the consult, Dr. Toussaint. We will follow along and make further recommendations as picture progresses/becomes clearer. JOB# [id number] PERCY/DARIUS
[2016-06-07] MEDS: HEPARIN SUB-Q SCH ×2 (06:55→14:28)
[2016-06-07] MEDS: MORPHINE IV PRN (08:34)
[2016-06-07] MEDS: LIORESAL PO SCH (10:30)
[2016-06-07] MEDS: NORVASC PO SCH (10:30)
[2016-06-07] MEDS: COZAAR PO SCH (10:30)
[2016-06-07] MEDS: PROTONIX PO SCH (10:30)
[2016-06-07] MEDS: COREG PO SCH (10:30)
[2016-06-07] MEDS: PLAVIX PO SCH (10:30)
[2016-06-07] MEDS: BABY ASPIRIN PO SCH (10:30)
[2016-06-07] MEDS: NOVOLOG SUB-Q SCH ×2 (12:00→17:00)
[2016-06-07] MEDS: NACL 0.9% 1000 ML 1,000 ML IV SCH (14:00)
--- NOTE | 2016-06-07 14:10 | Progress Note ---
Assessment and Plan - Patient Problems (1) Acute generalized abdominal pain Current Visit: Yes Status: Acute (2) DKA (diabetic ketoacidosis) Current Visit: Yes Status: Acute (3) Altered mental status Current Visit: No Status: Acute Subjective Date of service: 06/07/16 Principal diagnosis: DKA Interval history: seen and examined at bedside; 24hour events reviewed; nursing and respiratory care staff consulted; no adverse overnight events reported to me; Objective Vital Signs - 12hr 06/07/16 06/07/16 08:00 10:30 Temperature 99 F Pulse Rate 98 H Pulse Rate [ 76 Left Radial] Respiratory 18 Rate Blood Pressure 148/76 Blood Pressure 124/60 [Left Arm] O2 Sat by Pulse 97 Oximetry Constitutional: no acute distress Eyes: non-icteric ENT: oropharynx moist Neck: supple, no lymphadenopathy Effort: normal Ascultation: Bilateral: clear Cardiovascular: regular rate and rhythm Gastrointestinal: normoactive bowel sounds, soft, non-tender, non-distended Integumentary: normal Extremities: no cyanosis, no edema, pulses normal, no ischemia or petechiae Neurologic: normal mental status, pupils equal and round, unable to assess Psychiatric: mood appropriate, affect normal CBC and BMP: 06/05/16 09:11 06/06/16 08:18 Abnormal lab findings: Abnormal Labs 06/05/16 06/05/16 06/05/16 12:04 14:03 15:50 Chloride Carbon Dioxide 9 L* 15 L BUN 23 H 21 H Glucose 526 H* 400 H POC Glucose 265 H 06/05/16 06/05/16 06/05/16 15:53 16:50 18:18 Chloride Carbon Dioxide 18 L BUN 21 H Glucose 271 H POC Glucose 172 H 119 H 06/05/16 06/05/16 06/05/16 21:01 22:08 23:17 Chloride Carbon Dioxide BUN Glucose POC Glucose 111 H 129 H 123 H 06/06/16 06/06/16 06/06/16 00:12 01:24 02:08 Chloride Carbon Dioxide BUN Glucose POC Glucose 148 H 127 H 117 H 06/06/16 06/06/16 06/06/16 03:07 05:31 06:02 Chloride Carbon Dioxide BUN Glucose POC Glucose 119 H 198 H 184 H 06/06/16 06/06/16 06/06/16 06:56 07:56 08:18 Chloride 110.2 H Carbon Dioxide BUN Glucose 129 H POC Glucose 153 H 128 H 06/06/16 06/06/16 06/06/16 08:55 10:06 11:11 Chloride Carbon Dioxide BUN Glucose POC Glucose 133 H 176 H 171 H 06/06/16 06/06/16 06/06/16 12:33 15:58 17:32 Chloride Carbon Dioxide BUN Glucose POC Glucose 149 H 67 L 240 H 06/06/16 06/07/16 06/07/16 21:08 02:56 06:28 Chloride Carbon Dioxide BUN Glucose POC Glucose 396 H 325 H 382 H 06/07/16 10:12 Chloride Carbon Dioxide BUN Glucose POC Glucose 360 H
[2016-06-07] MEDS ORDERED: PERCOCET 5/325 PO PRN (15:13)
--- NOTE | 2016-06-07 16:32 | Discharge Summary ---
Providers - Providers Date of Admission: 06/05/16 11:19 Attending physician: KIRSTY BRAMBILA MD Primary care physician: PORCELAIN ENAMELER Hospitalization Condition: Serious Hospital course: 1. DKA resolving, will continue insulin drip for now, but start subq insulin later and transition to Subq insulin, start diet 2. HTN well controlled, continue current meds 3. MAYUR/ Vasomotor nephropathy has resolved with IVFluids 4. Hyperkalemia extra cellular shift of K was likely due to insulin deficiency, has now corrected Disposition: DISCHARGED TO HOME OR SELFCARE Time spent for discharge: 35 minutes Core Measure Documentation - Palliative Care Palliative Care/ Comfort Measures: Not Applicable - Core Measures Any of the following diagnoses?: none Exam - Constitutional Vitals: Temp Pulse Resp BP Pulse Ox 99 F 98 H 18 148/76 97 06/07/16 08:00 06/07/16 10:30 06/07/16 08:00 06/07/16 10:30 06/07/16 08:00 General appearance: Present: no acute distress, well-nourished - EENT Eyes: Present: PERRL ENT: hearing intact, clear oral mucosa - Neck Neck: Present: supple, normal ROM - Respiratory Respiratory effort: normal Respiratory: bilateral: CTA - Cardiovascular Heart Sounds: Present: S1 & S2. Absent: rub, click - Extremities Extremities: pulses symmetrical, No edema Peripheral Pulses: within normal limits - Abdominal General gastrointestinal: Present: soft, non-tender, non-distended, normal bowel sounds Female genitourinary: Present: normal - Integumentary Integumentary: Present: clear, warm, dry - Musculoskeletal Musculoskeletal: gait normal, strength equal bilaterally - Psychiatric Psychiatric: appropriate mood/affect, intact judgment & insight - Neurologic Neurologic: CNII-XII intact, moves all extremities Plan Follow up with: PRIMARY CARE, [Primary Care Provider] - 3-5 Days Prescriptions: Diazepam Tab [Valium] 5 mg PO QHS PRN #15 tablet PRN Reason: Sleep traMADol [Ultram 50 MG tab] 50 mg PO Q6HR PRN #30 tablet PRN Reason: Pain
[2016-06-07 17:20] VITALS: BP 130/78
== END 2016-06-07 19:45 | disposition home or self-care (01) | DRG 637 ==
LOC: ED 08:22 → CC1 11:19 → 3A 06-06 22:12
PROVIDERS: ADMIT Internal Medicine; ATTEND Internal Medicine
DX: E13.10 Other specified diabetes mellitus with ketoacidosis without coma (principal); N17.0 Acute kidney failure with tubular necrosis; I10 Essential (primary) hypertension; K21.9 Gastro-esophageal reflux disease without esophagitis; E78.5 Hyperlipidemia, unspecified; E86.0 Dehydration; D72.829 Elevated white blood cell count, unspecified; E87.5 Hyperkalemia; Z79.4 Long term (current) use of insulin; Z86.73 Personal history of transient ischemic attack (TIA), and cerebral infarction without residual deficits; Z90.710 Acquired absence of both cervix and uterus; Z82.49 Family history of ischemic heart disease and other diseases of the circulatory system
CPT/HCPCS: 36415; 51702; 80048; 81001; 82010; 82805; 82962; 83036; 83735; 84100; 85025; 93005; 93010; 96361; 96374; J1644; J1815; J1818; J2270; J2405; J7030

== ENCOUNTER 2016-08-05 21:38 | Inpatient (IN) | payer MEDICARE ==
[2016-08-05] MEDS ORDERED: MORPHINE IV ONE (22:15)
[2016-08-05] MEDS ORDERED: ZOFRAN IV ONE (22:15)
[2016-08-05] MEDS ORDERED: PEPCID IV ONE (22:15)
[2016-08-05] MEDS ORDERED: NACL 0.9% 1000 ML 1,000 ML IV ONE (22:15)
--- NOTE | 2016-08-05 22:17 | Emergency Department Report ---
<FREDERIC HERNANDEZ P - Last Filed: 08/06/16 05:42> ED Abdominal Pain HPI - General Chief Complaint: Abdominal Pain Stated Complaint: ABD PAIN Time Seen by Provider: 08/05/16 22:03 - Related Data Home Medications Medication Instructions Recorded Confirmed Last Taken Baclofen 10 mg PO BID 09/19/13 06/05/16 06/04/16 Carvedilol [Coreg] 25 mg PO BID 09/19/13 06/05/16 06/04/16 Insulin Regular, Human [HumuLIN R] See Protocol SQ AC 09/19/13 06/05/16 1 Day Ago amLODIPine [Norvasc] 10 mg PO DAILY 09/19/13 06/05/16 06/04/16 Aspirin [Aspirin BABY CHEW TAB] 81 mg PO DAILY 09/22/13 06/05/16 1 Day Ago Losartan [Cozaar] 100 mg PO DAILY 09/22/13 06/05/16 06/04/16 Insulin Glargine,Hum.[email or web address] See Protocol SQ HS 05/27/15 06/05/16 1 Day Ago [Lantus] Lovastatin [Altoprev] 20 mg PO QPM 05/27/15 06/05/16 06/04/16 Omeprazole [PriLOSEC] 20 mg PO QDAY 05/27/15 06/05/16 06/04/16 Clopidogrel Bisulfate [Plavix] 75 mg PO DAILY 06/05/16 06/05/16 Unknown Meclizine [Antivert] 25 mg PO TID PRN 06/05/16 06/05/16 Unknown Vitamin D3 1 tab PO HS 06/05/16 06/05/16 Unknown Previous Rx's Medication Instructions Recorded Last Taken Type Diazepam Tab [Valium] 5 mg PO QHS PRN #15 tablet 06/07/16 Unknown Rx traMADol [Ultram 50 MG tab] 50 mg PO Q6HR PRN #30 tablet 06/07/16 Unknown Rx Allergies Allergy/AdvReac Type Severity Reaction Status Date / Time No Known Allergies Allergy Verified 01/07/16 22:32 ED Review of Systems ROS: Stated complaint: ABD PAIN Other details as noted in HPI ED Past Medical Hx - Medications Home Medications: Home Medications Medication Instructions Recorded Confirmed Last Taken Type Baclofen 10 mg PO BID 09/19/13 06/05/16 06/04/16 History Carvedilol [Coreg] 25 mg PO BID 09/19/13 06/05/16 06/04/16 History Insulin Regular, Human [HumuLIN R] See Protocol SQ AC 09/19/13 06/05/16 1 Day Ago History amLODIPine [Norvasc] 10 mg PO DAILY 09/19/13 06/05/16 06/04/16 History Aspirin [Aspirin BABY CHEW TAB] 81 mg PO DAILY 09/22/13 06/05/16 1 Day Ago History Losartan [Cozaar] 100 mg PO DAILY 09/22/13 06/05/16 06/04/16 History Insulin Glargine,Hum.[email or web address].anlog See Protocol SQ HS 05/27/15 06/05/16 1 Day Ago History [Lantus] Lovastatin [Altoprev] 20 mg PO QPM 05/27/15 06/05/16 06/04/16 History Omeprazole [PriLOSEC] 20 mg PO QDAY 05/27/15 06/05/16 06/04/16 History Clopidogrel Bisulfate [Plavix] 75 mg PO DAILY 06/05/16 06/05/16 Unknown History Meclizine [Antivert] 25 mg PO TID PRN 06/05/16 06/05/16 Unknown History Vitamin D3 1 tab PO HS 06/05/16 06/05/16 Unknown History Diazepam Tab [Valium] 5 mg PO QHS PRN #15 tablet 06/07/16 Unknown Rx traMADol [Ultram 50 MG tab] 50 mg PO Q6HR PRN #30 tablet 06/07/16 Unknown Rx ED Course Vital Signs 08/05/16 08/05/16 08/05/16 22:30 22:58 23:00 Temperature 98.8 F Pulse Rate 87 90 Respiratory 20 20 20 Rate Blood Pressure Blood Pressure 151/71 159/75 [Left] O2 Sat by Pulse Oximetry 08/05/16 08/05/16 08/05/16 23:18 23:20 23:28 Temperature Pulse Rate 97 H 93 H Respiratory 22 21 18 Rate Blood Pressure 108/90 Blood Pressure [Left] O2 Sat by Pulse Oximetry 08/05/16 08/06/16 08/06/16 23:30 00:00 00:30 Temperature Pulse Rate 93 H Respiratory 19 Rate Blood Pressure 170/82 165/82 174/85 Blood Pressure [Left] O2 Sat by Pulse Oximetry 08/06/16 08/06/16 08/06/16 00:58 01:00 01:30 Temperature Pulse Rate Respiratory Rate Blood Pressure 164/82 169/147 170/87 Blood Pressure [Left] O2 Sat by Pulse Oximetry 08/06/16 08/06/16 08/06/16 02:15 02:27 03:00 Temperature Pulse Rate Respiratory 18 Rate Blood Pressure 170/88 170/91 Blood Pressure [Left] O2 Sat by Pulse Oximetry 08/06/16 08/06/16 08/06/16 06:30 07:50 07:59 Temperature 98.2 F Pulse Rate 82 99 H Respiratory 18 22 Rate Blood Pressure Blood Pressure 168/84 177/89 [Left] O2 Sat by Pulse 100 Oximetry ED Medical Decision Making - Lab Data Result diagrams: 08/05/16 22:59 08/05/16 22:59 - Medical Decision Making CT scan of the abdomen and pelvis revealed findings concerning for small bowel obstruction secondary to adhesions. The on-call general surgeon Dr. Bermudez is contacted. He agrees to consultation and requests admission to the hospitalist service. The on-call hospitalist Dr. Chan was contacted. She agrees to admission. The patient will be admitted in guarded condition. Critical care attestation.: If time is entered above; I have spent that time in minutes in the direct care of this critically ill patient, excluding procedure time. ED Disposition Clinical Impression: SBO (small bowel obstruction), Hyperglycemia, Dehydration Abdominal pain Qualifiers: Abdominal location: unspecified location Qualified Code(s): R10.9 - Unspecified abdominal pain Disposition: OP ADMITTED IP TO THIS HOSP Is pt being admited?: Yes Does the pt Need Aspirin: Yes Condition: Fair Time of Disposition: 04:48 <MAYKEL GAMBOA - Last Filed: 08/08/16 00:58> ED Abdominal Pain HPI - General Source: patient, EMS, RN notes reviewed, old records reviewed Mode of arrival: Stretcher Limitations: No Limitations - History of Present Illness Initial Comments: This is a 61-year-old female. She is previously unknown to me. Her primary care doctor is Dr. Darien Flood. Past medical history includes diabetes, hypertension, stroke, GERD, high cholesterol, diabetic ketoacidosis. Surgical history includes abdominal hysterectomy. Patient brought to the hospital by EMS for evaluation of abdominal pain. Patient reports that she consumed fried chicken at 4:00, and then has been expressing diffuse abdominal pain. The pain is sharp, increases with palpation and range of motion, decreases with rest. There is no chest pain. There is no new or different shortness of breath. Patient last defecated yesterday. Recall the last time she passed gas. Denies irritative and obstructive urinary symptoms. States this does not feel consistent with prior episodes of diabetic ketoacidosis. MD Complaint: abdominal pain -: Gradual Location: diffuse Severity: moderate Quality: cramping, aching Consistency: constant Improves With: rest Worsens With: movement Context: possible food poisoning Associated Symptoms: nausea ED Review of Systems Constitutional: malaise. denies: fever Eyes: denies: vision change ENT: denies: epistaxis Respiratory: denies: cough Cardiovascular: denies: chest pain Gastrointestinal: abdominal pain, nausea Genitourinary: denies: dysuria Musculoskeletal: denies: back pain Skin: denies: lesions Neurological: denies: weakness Psychiatric: anxiety ED Past Medical Hx - Past Medical History Hx Hypertension: Yes Hx CVA: Yes (Last stroke 2014) Hx Heart Attack/AMI: No Hx Congestive Heart Failure: No Hx Diabetes: Yes Hx Deep Vein Thrombosis: No Hx Pulmonary Embolism: No Hx GERD: Yes Hx Liver Disease: No Hx Renal Disease: No Hx Sickle Cell Disease: No Hx Arthritis: Yes Hx Kidney Stones: No Hx Asthma: No Hx COPD: No Hx Tuberculosis: No Hx HIV: No Additional medical history: 2 herniated discs - Surgical History Hx Coronary Stent: No Hx Pacemaker: No Hx Internal Defibrillator: No Additional Surgical History: hyst. - Social History Smoking Status: Never Smoker Substance Use Type: None ED Physical Exam - General Limitations: No Limitations General appearance: alert, in distress (mild distress), obese - Head Head exam: Present: atraumatic, normocephalic - Eye Eye exam: Present: normal appearance - ENT ENT exam: Present: mucous membranes moist - Neck Neck exam: Present: normal inspection - Respiratory Respiratory exam: Present: normal lung sounds bilaterally. Absent: respiratory distress, wheezes, rales, rhonchi, stridor, chest wall tenderness - Cardiovascular Cardiovascular Exam: Present: regular rate, normal rhythm, normal heart sounds. Absent: bradycardia, tachycardia, irregular rhythm, systolic murmur, diastolic murmur, rubs, gallop - GI/Abdominal GI/Abdominal exam: Present: soft, tenderness, normal bowel sounds. Absent: distended, guarding, rebound, rigid, pulsatile mass - Extremities Exam Extremities exam: Present: normal inspection, full ROM, normal capillary refill. Absent: tenderness, pedal edema, joint swelling, calf tenderness - Back Exam Back exam: Present: normal inspection, full ROM. Absent: tenderness, CVA tenderness (R), CVA tenderness (L), muscle spasm, paraspinal tenderness, vertebral tenderness - Neurological Exam Neurological exam: Present: alert, oriented X3, other (Extraocular movements intact. Tongue midline. No facial droop. Facial sensation intact to light touch in the V1, V2, V3 distribution bilaterally. 5 and 5 strength in 4 extremities.. Sensation is intact to light touch in 4 extremities.). Absent: motor sensory deficit - Psychiatric Psychiatric exam: Present: anxious - Skin Skin exam: Present: warm, dry, intact, normal color. Absent: rash ED Course Vital Signs 08/05/16 08/05/16 08/05/16 22:30 22:58 23:00 Temperature 98.8 F Pulse Rate 87 90 Respiratory 20 20 20 Rate Blood Pressure Blood Pressure 151/71 159/75 [Left] O2 Sat by Pulse Oximetry 08/05/16 08/05/16 08/05/16 23:18 23:20 23:28 Temperature Pulse Rate 97 H 93 H Respiratory 22 21 18 Rate Blood Pressure 108/90 Blood Pressure [Left] O2 Sat by Pulse Oximetry 08/05/16 08/06/16 08/06/16 23:30 00:00 00:30 Temperature Pulse Rate 93 H Respiratory 19 Rate Blood Pressure 170/82 165/82 174/85 Blood Pressure [Left] O2 Sat by Pulse Oximetry 08/06/16 08/06/16 08/06/16 00:58 01:00 01:30 Temperature Pulse Rate Respiratory Rate Blood Pressure 164/82 169/147 170/87 Blood Pressure [Left] O2 Sat by Pulse Oximetry 08/06/16 08/06/16 08/06/16 02:15 02:27 03:00 Temperature Pulse Rate Respiratory 18 Rate Blood Pressure 170/88 170/91 Blood Pressure [Left] O2 Sat by Pulse Oximetry 08/06/16 08/06/16 08/06/16 06:30 07:50 07:59 Temperature 98.2 F Pulse Rate 82 99 H Respiratory 18 22 Rate Blood Pressure Blood Pressure 168/84 177/89 [Left] O2 Sat by Pulse 100 Oximetry - Reevaluation(s) Reevaluation #1: 08/05/16 22:33 Differential diagnosis: Colitis, diverticulitis, urinary tract infection, bowel obstruction, diabetic ketoacidosis, pancreatitis Assessment and plan: 61-year-old female with diffuse abdominal pain after consumption of fried chicken. She is mildly diffusely tender. No chest pain, no shortness of breath. IV fluids, pain medication, nausea medication, urinalysis, CT scan of abdomen and pelvis ordered. Reassess after data points. Reevaluation #2: 08/06/16 01:[address] Hernandez pending CT results. 08/08/16 00:58 ED Medical Decision Making - Lab Data Result diagrams: 08/07/16 06:15 08/07/16 06:15 ED Disposition Is pt being admited?: Yes Does the pt Need Aspirin: No
[2016-08-05 22:54] LABS: Bilirubin,Urine NEG (Negative); Blood,Urine NEG (Negative); Ketones,Urine 20 mg/dL (Negative); Leukocyte Esterase,Urine NEG (Negative); Nitrite,Urine NEG (Negative); Protein,Urine <15 mg/dL mg/dL (Negative); Urobilinogen,Urine < 2.0 mg/dL (<2.0)
[2016-08-05 23:14] LABS: Basophils % (Auto) 0.7 % (0.0-1.8); Eosinophils % (Auto) 0.2 % (0.0-4.3); Hematocrit 44.7 % (30.3-42.9); Hemoglobin 14.4 gm/dl (10.1-14.3); Mean Corpuscular HGB Conc 32 % (30-34); Mean Corpuscular Hemoglobin 29 pg (28-32); Mean Corpuscular Volume 91 fl (79-97); Platelet Count 243 K/mm3 (140-440); Red Blood Count 4.91 M/mm3 (3.65-5.03); Red Cell Distribution Width 13.4 % (13.2-15.2); White Blood Count 12.7 K/mm3 (4.5-11.0)
[2016-08-05 23:35] LABS: Alanine Aminotransferase 14 units/L (7-56); Albumin/Globulin Ratio 1.2 %; Alkaline Phosphatase 115 units/L (35-129); Anion Gap 18 mmol/L; Bilirubin,Total 0.5 mg/dL (0.1-1.2); Blood Urea Nitrogen 14 mg/dL (7-17); Calcium 9.7 mg/dL (8.4-10.2); Carbon Dioxide 25 mmol/L (22-30); Chloride 98.7 mmol/L (98-107); Glucose 304 mg/dL (65-100); Lipase 13 units/L (13-60); Potassium 3.6 mmol/L (3.6-5.0); Sodium 138 mmol/L (137-145); Total Protein 7.3 g/dL (6.3-8.2)
[2016-08-06] MEDS ORDERED: NACL ONE (00:13)
[2016-08-06] MEDS ORDERED: BENTYL ONE (00:22)
[2016-08-06] MEDS ORDERED: TORADOL IV ONE (01:29)
[2016-08-06] MEDS ORDERED: BENTYL IM ONE (01:29)
[2016-08-06] MEDS ORDERED: BENTYL PO ONE (01:30)
--- NOTE | 2016-08-06 02:59 | Admit Criteria Form ---
Admission Criteria Documentation: ABDOMINAL PAIN Clinical Indications for Admission to Inpatient Care (Place 'X' for any and all applicable criteria): Admission is indicated for ANY ONE of the following(1)(2)(3)(4)(5): [ X]I. Inpatient admission required rather than observation care (Also use Abdominal Pain: Observation Care, as appropriate) because of ANY ONE of the following: [ ]a) Severe pain requiring acute inpatient management [X ]b) Identification of etiology/finding that requires inpatient care (eg, aortic dissection, free air) [ ]c) Absent bowel sounds with complete ileus(6) [ ]d) Suspected toxic megacolon [ ]e) Severe electrolyte abnormalities requiring inpatient care [ ]f) High fever or infection requiring inpatient admission as indicated by ANY ONE of following(7)(8): [ ] i) Appropriate outpatient or observational care antimicrobial treatment unavailable, not effective, or not feasible [ ] ii) Documented bacteremia [ ] iii) Temperature > 104.9 degrees F (oral) [ ] iv) T >103.1 F (oral) or < 96.8 F(rectal) that does not respond to all emergency treatment measures [ ]g) Signs of intestinal obstruction [B] [ ]h) Hemodynamic instability [ ]i) IV fluid to replace significant ongoing losses (greater than 3 L/m2 per day) (12)(13) [ ]j) Percutaneous or open drainage (eg, abscess, biliary tract ) procedures [ ]k) Parenteral nutrition regimen that must be implemented on inpatient basis [ ]l) Other condition,treatment or monitoring requiring inpatient admission. [ ]II. Peritoneal signs present [ ]III. Surgery needed that cannot be performed on an ambulatory basis. [ ]IV. Evaluation requires patient to not eat or drink for extended period ( eg, more than 24 hours). [ ]V. Contraindications and/or Inappropriate clinical situations for Observational Care in patients with abdominal pain, when ANY ONE of the following is required: [ ]a) Thorough evaluation is required to prevent catastrophic events due to delays in diagnosing (e.g.Mesenteric ischemia) 1,3 [ ]b) Patient with severe pathology or with chronic symptoms unlikely to improve in the ED stay (3) [ ]. General contraindications and/or Inappropriate clinical situations for Observational Care in patients with abdominal pain, when ANY ONE of the following is required: [ ]a) Prediction of prolongation of LOS based on ANY ONE of the following may be considered as a contraindication for observational care 2, 3, 4, 5, 6, 7, 8, 9, 10, 11 [ ]i) Age > 65 yrs. [ ]ii) Patient arriving by ambulance [ ]iii) Patient with high acuity [ ]iv) Patient requiring vital sign monitoring [ ]v) Patient on IV medication [ ]b) Systolic blood pressures 180mmHg 3,12 [ ]c) Patient with altered mental status including delirium and other alteration of consciousness, (3) [ ]d) Patient whose discharge disposition will be to a group home home or rehabilitation home should not be managed in Emergency Department Observation Unit. CMS rule requires 3 days hospital stay before such placement.3,13 [ ]e) Patient with failure to thrive due to broad array of etiologies 3,16,17 [ ]f) Inability to ambulate 3,14 Extended stay beyond goal length of stay may be needed for(2)(3): [ ]a) Persistent abdominal pain with suspected intra-abdominal process [ ]b) Diagnosed condition requiring continued stay (e.g., pancreatitis, complicated diverticulitis) [ ]c) Surgery (e.g., colectomy) The original [facility] content created by [employer] has been revised. The portions of the content which have been revised are identified through the use of italic text or in bold, and [facility] has neither reviewed nor approved the modified material.All other unmodified content is copyright [facility]. Please see references footnoted in the original [facility] edition 2016 Admission Criteria Met: Yes
--- NOTE | 2016-08-06 03:07 | Cat Scan Report ---
FINAL REPORT PROCEDURE: CT ABDOMEN PELVIS W CON TECHNIQUE: Computerized axial tomography of the abdomen and pelvis was performed after the IV injection of iodinated nonionic contrast. HISTORY: abd pain COMPARISON: No prior studies are available for comparison. FINDINGS: Visualized lower thorax: No significant abnormality. Liver: Normal size and attenuation. Spleen: Normal size and attenuation. Gallbladder and biliary system: Normal. Pancreas: Normal. Adrenals: Normal. Kidneys: Normal. GI tract: The stomach atrium is thickened.. There are dilated loops of small bowel with normal caliber distal loops suggesting mechanical obstruction possibly by adhesions. There is no enteritis or ischemic injury. There is no mass. There is moderate stool in the colon. There is no obstruction, colitis or colonic mass. The appendix is not discretely identified.. Lymph nodes and mesentery: Normal. Vasculature: Normal. Bladder: Normal. Reproductive organs: There has been a hysterectomy.. Peritoneum: There is no ascites, free air, abscess or adenopathy.. Musculoskeletal structures: No significant abnormality. Other: None. IMPRESSION: The stomach atrium is thickened. There are dilated loops of small bowel with normal caliber distal loops suggesting mechanical obstruction possibly by adhesions. There is no enteritis or ischemic injury. There is no mass. There is moderate stool in the colon. There is no obstruction, colitis or colonic mass. The appendix is not discretely identified.. There has been a hysterectomy.. There is no ascites, free air, abscess or adenopathy..
[2016-08-06] MEDS ORDERED: D50W (25GM) IV PRN (06:02)
[2016-08-06] MEDS ORDERED: ZOFRAN IV PRN (06:02)
[2016-08-06] MEDS ORDERED: TYLENOL PO PRN (06:02)
--- NOTE | 2016-08-06 06:08 | History and Physical Report ---
History of Present Illness Date of examination: 08/06/16 History of present illness: 61-year-old woman with a history of hypertension, diabetes, hyperlipidemia, GERD , previous CVA comes emergency room with complaints of abdominal pain that started yesterday. Pain is located in the lower abdomen which she describes a sharp pain, intermittent at first but that become constant, intensity 7/10, no radiation, worse with eating and drinking. Admits to nausea, no vomiting Patient denies chest pain, palpitation, shortness of breath, cough, , hematochezia, dysuria, frequency, focal weakness, dysarthria, fever chills, polydipsia polyuria, hot or cold intolerance, easy bruisability, or rash or bleeding from mucosal membrane, rhinorrhea, epistaxis, earache, tinnitus, blurry vision, eye discharge, anxiety, depression. Other review of systems negative PAST SURGICAL HISTORY: Hysterectomy SOCIAL HISTORY: Denies alcohol, tobacco, drugs FAMILY HISTORY: Hypertension, coronary artery disease Medications and Allergies Allergies Allergy/AdvReac Type Severity Reaction Status Date / Time No Known Allergies Allergy Verified 01/07/16 22:32 Home Medications Medication Instructions Recorded Confirmed Last Taken Type Baclofen 10 mg PO BID 09/19/13 06/05/16 06/04/16 History Carvedilol [Coreg] 25 mg PO BID 09/19/13 06/05/16 06/04/16 History Insulin Regular, Human [HumuLIN R] See Protocol SQ AC 09/19/13 06/05/16 1 Day Ago History amLODIPine [Norvasc] 10 mg PO DAILY 09/19/13 06/05/16 06/04/16 History Aspirin [Aspirin BABY CHEW TAB] 81 mg PO DAILY 09/22/13 06/05/16 1 Day Ago History Losartan [Cozaar] 100 mg PO DAILY 09/22/13 06/05/16 06/04/16 History Insulin Glargine,Hum.rec.anlog See Protocol SQ HS 05/27/15 06/05/16 1 Day Ago History [Lantus] Lovastatin [Altoprev] 20 mg PO QPM 05/27/15 06/05/16 06/04/16 History Omeprazole [PriLOSEC] 20 mg PO QDAY 05/27/15 06/05/16 06/04/16 History Clopidogrel Bisulfate [Plavix] 75 mg PO DAILY 06/05/16 06/05/16 Unknown History Meclizine [Antivert] 25 mg PO TID PRN 06/05/16 06/05/16 Unknown History Vitamin D3 1 tab PO HS 06/05/16 06/05/16 Unknown History Diazepam Tab [Valium] 5 mg PO QHS PRN #15 tablet 06/07/16 Unknown Rx traMADol [Ultram 50 MG tab] 50 mg PO Q6HR PRN #30 tablet 06/07/16 Unknown Rx Active Meds: Active Medications Acetaminophen (Tylenol) 650 mg PO Q4H PRN PRN Reason: Pain MILD(1-3)/Fever >100.5/PHILIPPE Dextrose (D50w (25gm)) 50 ml IV PRN PRN PRN Reason: Hypoglycemia Enoxaparin Sodium (Lovenox) 40 mg SUB-Q QDAY JUAN M Sodium Chloride (Nacl 0.45% 1000 Ml) 1,000 mls @ 150 mls/hr IV DIRECT JUAN M Morphine Sulfate (Morphine) 2 mg IV Q4H PRN PRN Reason: Pain, Moderate (4-6) Ondansetron HCl (Zofran) 4 mg IV Q8H PRN PRN Reason: N/V unrelieved by Reglan Exam - Physical Exam Narrative exam: Gen. appearance: Patient lying in bed, no apparent distress HEENT: Normocephalic, atraumatic, pupils equally round and reactive to light, extraocular movement intact, and no sclericterus,. No JVD or thyromegaly or nodule,neck supple, no carotid bruit ,mucous membranes moist, no exudate or erythema Heart: S1, S2, regular rate and rhythm Lungs: Clear to auscultation bilaterally, breathing comfortable Abdomen: Positive bowel sounds, tender in lower quadrants, nondistended, no organomegaly Extremity: No edema, cyanosis, clubbing Skin: No rash, nodules, warm, dry Neuro: Oriented 3, cranial nerves II-12 intact, speech is fluent, motor and sensory intact - Constitutional Vitals: Temp Pulse Resp BP Pulse Ox 98.8 F 93 H 18 170/87 08/05/16 23:00 08/05/16 23:30 08/06/16 02:15 08/06/16 01:30 Results - Labs CBC & Chem 7: 08/12/16 07:16 08/12/16 07:16 Labs: Abnormal lab results 08/05/16 08/05/16 08/05/16 Range/Units 22:35 22:59 22:59 WBC 12.7 H (4.5-11.0) K/mm3 Hgb 14.4 H (10.1-14.3) gm/dl Hct 44.7 H (30.3-42.9) % Lymph % (Auto) 10.5 L (13.4-35.0) % Seg Neutrophils % 84.2 H (40.0-70.0) % Seg Neutrophils # 10.7 H (1.8-7.7) K/mm3 Glucose 304 H (65-100) mg/dL Lactic Acid (0.7-2.0) mmol/L Urine pH 8.0 H (5.0-7.0) 08/05/16 Range/Units 22:59 WBC (4.5-11.0) K/mm3 Hgb (10.1-14.3) gm/dl Hct (30.3-42.9) % Lymph % (Auto) (13.4-35.0) % Seg Neutrophils % (40.0-70.0) % Seg Neutrophils # (1.8-7.7) K/mm3 Glucose (65-100) mg/dL Lactic Acid 2.4 H* (0.7-2.0) mmol/L Urine pH (5.0-7.0) - Imaging and Cardiology CT scan - abdomen: report reviewed CT scan - pelvis: report reviewed Assessment and Plan Possible small bowel obstruction Diabetes uncontrolled Hypertension GERD History of CVA Admit to medicine Start IV fluids, bowel rest, NG tube, consult surgery Check fingersticks initiate insulin sliding scale IV hydralazine as needed for blood pressure control Start DVT prophylaxis
[2016-08-06] MEDS ORDERED: MORPHINE ONE (07:54)
[2016-08-06] MEDS: MORPHINE IV PRN ×4 (07:59→18:05)
[2016-08-06] MEDS: NACL 0.45% 1000 ML 1,000 ML IV SCH ×2 (10:52→17:39)
[2016-08-06] MEDS: LOVENOX SUB-Q SCH (11:04)
--- NOTE | 2016-08-06 12:12 | Consultation ---
History of Present Illness Consult date: 08/06/16 Reason for consult: other (small bowel obstruction) Chief complaint: Abdominal pain. - History of present illness History of present illness: 61-year-old years old female with 2 days history of abdominal pain in the periumbilical area. Patient came to the emergency room and a CT of the abdomen showed small bowel obstruction. Last bowel movement was 2 days ago. She denies passing flatus in the last couple of days. Past History Past Medical History: diabetes, hypertension Past Surgical History: hysterectomy Social history: no significant social history, Lives alone, other (legally ) Family history: no significant family history Medications and Allergies Allergies Allergy/AdvReac Type Severity Reaction Status Date / Time No Known Allergies Allergy Verified 01/07/16 22:32 Home Medications Medication Instructions Recorded Confirmed Last Taken Type Baclofen 10 mg PO BID 09/19/13 06/05/16 06/04/16 History Carvedilol [Coreg] 25 mg PO BID 09/19/13 06/05/16 06/04/16 History Insulin Regular, Human [HumuLIN R] See Protocol SQ AC 09/19/13 06/05/16 1 Day Ago History amLODIPine [Norvasc] 10 mg PO DAILY 09/19/13 06/05/16 06/04/16 History Aspirin [Aspirin BABY CHEW TAB] 81 mg PO DAILY 09/22/13 06/05/16 1 Day Ago History Losartan [Cozaar] 100 mg PO DAILY 09/22/13 06/05/16 06/04/16 History Insulin Glargine,Hum.rec.anlog See Protocol SQ HS 05/27/15 06/05/16 1 Day Ago History [Lantus] Lovastatin [Altoprev] 20 mg PO QPM 05/27/15 06/05/16 06/04/16 History Omeprazole [PriLOSEC] 20 mg PO QDAY 05/27/15 06/05/16 06/04/16 History Clopidogrel Bisulfate [Plavix] 75 mg PO DAILY 06/05/16 06/05/16 Unknown History Meclizine [Antivert] 25 mg PO TID PRN 06/05/16 06/05/16 Unknown History Vitamin D3 1 tab PO HS 06/05/16 06/05/16 Unknown History Diazepam Tab [Valium] 5 mg PO QHS PRN #15 tablet 06/07/16 Unknown Rx traMADol [Ultram 50 MG tab] 50 mg PO Q6HR PRN #30 tablet 06/07/16 Unknown Rx Active Meds: Active Medications Acetaminophen (Tylenol) 650 mg PO Q4H PRN PRN Reason: Pain MILD(1-3)/Fever >100.5/PHILIPPE Dextrose (D50w (25gm)) 50 ml IV PRN PRN PRN Reason: Hypoglycemia Enoxaparin Sodium (Lovenox) 40 mg SUB-Q QDAY JUAN M Last Admin: 08/06/16 11:04 Dose: 40 mg Hydralazine HCl (Apresoline) 5 mg IV Q6H PRN PRN Reason: Hypertension Sodium Chloride (Nacl 0.45% 1000 Ml) 1,000 mls @ 150 mls/hr IV DIRECT JUAN M Last Admin: 08/06/16 10:52 Dose: 150 mls/hr Morphine Sulfate (Morphine) 2 mg IV Q4H PRN PRN Reason: Pain, Moderate (4-6) Last Admin: 08/06/16 11:01 Dose: 2 mg Ondansetron HCl (Zofran) 4 mg IV Q8H PRN PRN Reason: N/V unrelieved by Reglan Review of Systems All systems: negative (present complaint) Exam Vital Signs Pulse Resp BP 87 20 151/71 08/05/16 22:30 08/05/16 22:30 08/05/16 22:30 - General physical appearance Positive: well developed, well nourished, no distress - Eyes Positive: PERRL, normal occular movement - ENT Positive: normal pinna, normal nares, normal mucosa, no hearing loss, no congestion - Neck Positive: no masses, no bruits, trachea midline, no venous distension - Respiratory Positive: normal expansion, normal respiratory effort, clear to auscultation - Cardiovascular Rhythm: regular Heart Sounds: Present: S1 & S2 - Extremities Extremities: no ischemia, No edema Peripheral Pulses: within normal limits - Breasts Breasts: deferred - Abdomen Abdomen: Present: soft, tender (mildly tender in the periumbilical area), bowel sounds hypoactive, distended (mild). Absent: rebound, guarding - Genitourinary Female Genitourinary: deferred - Integumentary no rash, no growths, no abnormal pigmentation - Neurologic Neurologic: alert and oriented to time, place and person, motor strength and sensation are grossly intact - Musculoskeletal normal gait, normal posture - Psychiatric Psychiatric: appropriate mood/affect, intact judgment & insight Results - Labs 08/05/16 22:59 08/05/16 22:59 Abnormal lab results 08/06/16 Range/Units 11:37 POC Glucose 360 H (70-105) - Imaging CT scan - abdomen: report reviewed, image reviewed Assessment and Plan Diagnoses impression: #1. Small bowel obstruction. #2. Diabetes. #3. Hypertension. Recommendations: Would give her a trial with NG to low intermittent suction. We probably need a Gastrografin small bowel series study but I would wait until tomorrow so we can empty the stomach with NG tube. We'll follow.
[2016-08-06] MEDS: NOVOLOG SUB-Q SCH (22:53)
[2016-08-07] MEDS: NACL 0.45% 1000 ML 1,000 ML IV SCH (04:15)
[2016-08-07] MEDS: APRESOLINE IV PRN (05:37)
[2016-08-07 06:41] LABS: Basophils % (Auto) 0.4 % (0.0-1.8); Eosinophils % (Auto) 0.1 % (0.0-4.3); Hematocrit 43.1 % (30.3-42.9); Hemoglobin 13.9 gm/dl (10.1-14.3); Mean Corpuscular HGB Conc 32 % (30-34); Mean Corpuscular Hemoglobin 30 pg (28-32); Mean Corpuscular Volume 91 fl (79-97); Platelet Count 228 K/mm3 (140-440); Red Blood Count 4.72 M/mm3 (3.65-5.03); Red Cell Distribution Width 13.5 % (13.2-15.2); White Blood Count 13.1 K/mm3 (4.5-11.0)
[2016-08-07 07:00] LABS: BUN/Creatinine Ratio 27.14; Blood Urea Nitrogen 19 mg/dL (7-17); Calcium 9.5 mg/dL (8.4-10.2); Carbon Dioxide 13 mmol/L (22-30); Chloride 93.3 mmol/L (98-107); Glucose 432 mg/dL (65-100); Potassium 4.8 mmol/L (3.6-5.0); Sodium 133 mmol/L (137-145)
[2016-08-07 07:07] LABS: Anion Gap 32 mmol/L
[2016-08-07] MEDS: NOVOLOG SUB-Q SCH ×4 (08:17→22:40)
[2016-08-07] MEDS: LOVENOX SUB-Q SCH (10:00)
--- NOTE | 2016-08-07 10:10 | XRay Report ---
ABDOMINAL SERIES: History: The small bowel obstruction.. Supine and upright views of the abdomen and frontal view of the chest are submitted. Near resolution of the mildly dilated loops of small bowel in the midabdomen is demonstrated. Borderline small bowel loops measure 3.6 cm with evidence of mild mucosal edema. There is moderate to large stool in the colon. No free air or large air-fluid levels. Single view of the chest is unremarkable. IMPRESSION: Improvement in the small bowel obstruction pattern. Near-normal abdominal series.
--- NOTE | 2016-08-07 10:27 | Progress Note ---
Assessment and Plan IMP: Small bowel obstruction. PLAN: Exploratory laparotomy. The patient was explained the operative procedure , risks and complications. Discussed risks was quadriplegia, paraplegia, loss of limb , loss of eyesight, coma, and/or . I also discussed complications leg bleeding, infection, intestinal injuries and leaks that would require multiple open surgeries. The patient seems to understand and requested us to perform the procedure. Subjective Date of service: 08/07/16 Patient Reports: Positive: still having pain, no flatus, no bowel movement Narrative: Refused insertion of NG tube yesterday. Objective Vital Signs - 12hr 08/07/16 08/07/16 08/07/16 00:00 01:05 05:37 Temperature 97.0 F L Pulse Rate 101 H Pulse Rate [ 99 H Left Radial] Respiratory 20 Rate Blood Pressure 174/82 Blood Pressure 162/84 [Left Arm] Blood Pressure 182/79 [Right Arm] O2 Sat by Pulse 95 Oximetry 08/07/16 09:39 Temperature Pulse Rate Pulse Rate [ Left Radial] Respiratory Rate Blood Pressure Blood Pressure [Left Arm] Blood Pressure [Right Arm] O2 Sat by Pulse 95 Oximetry - Abdomen soft, tender (in the periumbilical area), bowel sounds hypoactive, distended ( increased distention since yesterday), not rebound, not guarding - Labs 08/07/16 06:15 08/07/16 06:15 Diabetes panel 08/07/16 Range/Units 06:15 Sodium 133 L (137-145) mmol/L Potassium 4.8 D (3.6-5.0) mmol/L Chloride 93.3 L (98-107) mmol/L Carbon Dioxide 13 L D (22-30) mmol/L BUN 19 H (7-17) mg/dL Creatinine 0.7 (0.7-1.2) mg/dL Glucose 432 H (65-100) mg/dL Calcium 9.5 (8.4-10.2) mg/dL Calcium panel 08/07/16 Range/Units 06:15 Calcium 9.5 (8.4-10.2) mg/dL Pituitary panel 08/07/16 Range/Units 06:15 Sodium 133 L (137-145) mmol/L Potassium 4.8 D (3.6-5.0) mmol/L Chloride 93.3 L (98-107) mmol/L Carbon Dioxide 13 L D (22-30) mmol/L BUN 19 H (7-17) mg/dL Creatinine 0.7 (0.7-1.2) mg/dL Glucose 432 H (65-100) mg/dL Calcium 9.5 (8.4-10.2) mg/dL Adrenal panel 08/07/16 Range/Units 06:15 Sodium 133 L (137-145) mmol/L Potassium 4.8 D (3.6-5.0) mmol/L Chloride 93.3 L (98-107) mmol/L Carbon Dioxide 13 L D (22-30) mmol/L BUN 19 H (7-17) mg/dL Creatinine 0.7 (0.7-1.2) mg/dL Glucose 432 H (65-100) mg/dL Calcium 9.5 (8.4-10.2) mg/dL - Imaging Abdominal x-ray: image reviewed (with Dr. La, no major change from online marketing manager film for the CT)
[2016-08-07] MEDS ORDERED: SUBLIMAZE ONE (10:47)
[2016-08-07] MEDS ORDERED: DIPRIVAN 10 MG/ML IV ONE (10:48)
[2016-08-07] MEDS ORDERED: XYLOCAINE MPF 2% ONE (10:49)
[2016-08-07] MEDS ORDERED: ZEMURON IV ONE (11:36)
[2016-08-07] MEDS ORDERED: NACL BACTERIOSTATIC INFILTRATI ONE (11:41)
--- NOTE | 2016-08-07 11:41 | Anesthesia Consultation ---
Anesthesia Consult and Med Hx Date of service: 08/07/16 - Airway Anesthetic Teeth Evaluation: Poor (missing) ROM Head & Neck: Adequate Mental/Hyoid Distance: Adequate Mallampati Class: Class II Intubation Access Assessment: Probably Good - Pulmonary Exam CTA: Yes - Cardiac Exam Cardiac Exam: RRR - Pre-Operative Health Status ASA Pre-Surgery Classification: ASA3, Emergency Proposed Anesthetic Plan: General - Pulmonary Hx Smoking: No Hx Asthma: No Hx Respiratory Symptoms: No SOB: Yes COPD: No Home Oxygen Therapy: No Hx Pneumonia: No Hx Sleep Apnea: No - Cardiovascular System Hx Hypertension: Yes Hx Coronary Artery Disease: No Hx Heart Attack/AMI: No Hx Angina: No Hx Percutaneous Transluminal Coronary Angioplasty (PTCA): No Hx Cardia Arrhythmia: No Hx Pacemaker: No Hx Internal Defibrillator: No Hx Valvular Heart Disease: No Hx Heart Murmur: No Hx Peripheral Vascular Disease: No - Central Nervous System Hx Neuromuscular Disorder: Yes () Hx Seizures: Yes (AMS) CVA: Yes (1997) Hx Back Pain: Yes (HNP x 2 per pt) Hx Psychiatric Problems: No - Gastrointestinal Hx Ulcer: Yes (SBO last vomited last PM refused NG tube) - Endocrine Hx Renal Disease: No Hx End Stage Renal Disease: No Hx Liver Disease: No Hx Insulin Dependent Diabetes: Yes (uncontrolled DKA) Hx Hypothyroidism: No Hx Hyperthyroidism: No - Hematic Hx Anemia: No Hx Sickle Cell Disease: No - Other Systems Hx Alcohol Use: No Hx Substance Use: No Hx Cancer: No Hx Obesity: No - Additional Comments Anesthesia Medical History Comments: SBO/dehydration
--- NOTE | 2016-08-07 11:42 | Anesthesia Day of Surgery ---
Anesthesia Day of Surgery - Day of Surgery Patient H&P Reviewed: Yes Patient is NPO: Yes Beta Blockers: No Cardiac Clearance: No Pulmonary Clearance: No
[2016-08-07] MEDS ORDERED: NACL 0.9% 1000 ML 1,000 ML IV SCH ×2 (12:00→13:00)
[2016-08-07] MEDS ORDERED: PEPCID IV NR (12:00)
[2016-08-07] MEDS ORDERED: ANCEF/STERILE WATER 2 GM/20 ML 2 GM/20 ML SYRINGE IV ONE (12:27)
[2016-08-07] MEDS ORDERED: NACL 0.9% 1000 ML ONE (12:42)
[2016-08-07] MEDS ORDERED: ANCEF/STERILE WATER 2 GM/20 ML IV NR (13:00)
[2016-08-07] MEDS ORDERED: NACL 0.9% IR ONE ×2 (13:21)
[2016-08-07] MEDS ORDERED: QUELICIN ONE (13:41)
[2016-08-07] MEDS ORDERED: ZOFRAN ONE (13:42)
[2016-08-07] MEDS ORDERED: NEOSTIGMINE ONE (13:44)
[2016-08-07] MEDS ORDERED: ROBINUL ONE ×2 (13:44)
[2016-08-07] MEDS ORDERED: NEO SYNEPHRINE ONE (14:32)
[2016-08-07] MEDS ORDERED: NACL 0.9% 100 ML ONE (14:32)
--- NOTE | 2016-08-07 15:41 | Operative Report ---
Operative Report Operative Report: Date of operation: 08/07/2016. Preoperative diagnosis: Small bowel obstruction. Postoperative diagnosis: 1. Small bowel obstruction. #2. Peritoneal adhesions. 3. Ischemic loop of bowel. Operation: #1. Exploratory laparotomy. #2. Lysis of adhesions. 3. Segmental small bowel resection with anastomosis. Surgeon: Srinivas Flores M.D. Findings: 61 years old female admitted to the hospital with a diagnosis of small bowel obstruction. The day after admission the patient was more distended with no change in clinical picture with persistent pain in the periumbilical area. White cell count went up from 14to 15,000. Abdominal x- rays showed no change in bowel pattern in comparison with the shipping and receiving supervisor film for the CAT scan. At operation we found extensive peritoneal adhesions off the omentum to the small bowel and loops SMALL bowel to each other. At the jejunoileal junction there were 2 loops of bowel very adhered to each other. During the lysis of adhesions there were some bleeding from the mesentery of these loops of bowel which was controlled with [id number] stitches of 3-0 Vicryl. After this we continue the lysis of adhesions throughout the small bowel. When this was finished the small bowel was ran from the Treitz all the way down to the ileocecal area. The 2 loops of bowel at the jejunoileal junction were ischemic so we went ahead and decided to perform a segmental resection. Procedure: Under general anesthesia the patient was prepped and draped in the usual sterile manner. Midline incision was done from above the umbilicus to above the symphysis pubis. Dissection carried down through the subcutaneous tissue into the fascia. It was opened in the midline starting at the epigastric area. The whole incision was opened. There were omental adhesions to the anterior abdominal wall and to the small bowel. We started taking these adhesions by blunt and sharp dissection. The dilated bowel was freed. The area of obstruction encountered. Couple of areas of bleeding from the mesentery were suture ligated with [id number] stitches of 3-0 Vicryl. Then we continued dissection all the way down to the ileocecal area. After this was done we ran the bowel from the ligament of Treitz to the ileocecal area. At the areas were the stitching in the mesentery occurred there were 2 spots of ischemic looking bowel so we went ahead and decided to do a segmental bowel resection. It was done by dividing the bowel proximal and distal to the areas of concern. This was done with SHERMAN. Then the mesentery was divided with the LigaASure. Then a stapled anastomosis was done using the SHERMAN and a TA 60. A good anastomosis was performed. The defect in the mesentery was approximated with multiple [id number] stitches of 3-0 Vicryl. The bowel was again ran from the Treitz to cecum. It was all intact. The bowel was returned to the abdominal cavity. Cavity was irrigated with copious amount of normal saline solution. Then preparations were made for closure. The cavity was closed with multiple interrupted stitches of #1 Vicryl. Steri-Strips tissue was irrigated with normal saline solution. The skin is reapproximated with skin clark. Sponge, instrument and needle counts were correct. Estimated blood loss: 100 mL. Intravenous fluid replacement: Crystalloids Condition: Stable. Specimen: Segment of small bowel, 18-20 inches.
[2016-08-07] MEDS: DILAUDID IV PRN ×5 (16:03→22:41)
--- NOTE | 2016-08-07 16:13 | Post Anesthesia Evaluation ---
- Post Anesthesia Evaluation Patient Participated: Yes Airway Patent: Yes Stable Respiratory Function: Yes Nausea/Vomiting: No Temp > 96.8F: Yes Pain Manageable: Yes Adequeate Hydration: Yes Anesthesia Complications: No
[2016-08-07] MEDS: MORPHINE IV PRN (18:03)
--- NOTE | 2016-08-07 19:36 | Progress Note ---
Assessment and Plan 1.Small bowel obstruction: s/p Exploratory lap with an hemodialysis and resection of adheno lysis ischemic and small bowel Subjective Date of service: 08/07/16 Principal diagnosis: Small [place]ell obstruction S/p Interval history: c/o post op abdominal pain Objective - Constitutional Vitals: Vital Signs - 12hr 08/07/16 08/07/16 08/07/16 09:39 10:48 11:38 Temperature 99.4 F Pulse Rate 99 H Respiratory 20 24 Rate Blood Pressure 157/79 O2 Sat by Pulse 95 100 Oximetry 08/07/16 08/07/16 08/07/16 15:35 15:40 15:45 Temperature 97.4 F L Pulse Rate 86 87 92 H Respiratory 18 22 22 Rate Blood Pressure 152/71 135/75 143/66 O2 Sat by Pulse 100 100 96 Oximetry 08/07/16 08/07/16 08/07/16 15:50 15:55 16:00 Temperature Pulse Rate 92 H 93 H 93 H Respiratory 22 22 22 Rate Blood Pressure 147/76 158/71 148/70 O2 Sat by Pulse 92 97 97 Oximetry 08/07/16 08/07/16 08/07/16 16:03 16:10 16:15 Temperature Pulse Rate 91 H Respiratory 22 20 18 Rate Blood Pressure 154/70 O2 Sat by Pulse 97 Oximetry 08/07/16 08/07/16 08/07/16 16:20 16:30 16:31 Temperature 98.3 F Pulse Rate 89 Respiratory 20 20 20 Rate Blood Pressure 152/68 O2 Sat by Pulse 97 Oximetry 08/07/16 08/07/16 16:45 17:00 Temperature Pulse Rate 89 92 H Respiratory 20 20 Rate Blood Pressure 135/61 159/63 O2 Sat by Pulse 100 100 Oximetry General appearance: Present: no acute distress, well-nourished - EENT Eyes: PERRL, EOM intact ENT: hearing intact, clear oral mucosa Ears: bilateral: normal - Neck Neck: supple, normal ROM - Respiratory Respiratory effort: normal Respiratory: bilateral: CTA - Cardiovascular Rhythm: regular Heart Sounds: Present: S1 & S2. Absent: gallop, rub Extremities: pulses intact, No edema, normal color, Full ROM - Gastrointestinal General gastrointestinal: Present: soft, tender, non-distended Rectal Exam: tenderness, decreased tone - Integumentary Integumentary: clear, warm, dry - Musculoskeletal Musculoskeletal: 1, strength equal bilaterally - Neurologic Neurologic: moves all extremities - Psychiatric Psychiatric: memory intact, appropriate mood/affect, intact judgment & insight - Labs CBC & Chem 7: 08/07/16 06:15 08/07/16 06:15 Labs: Abnormal lab results 08/06/16 08/07/16 08/07/16 Range/Units 21:37 06:06 06:15 WBC 13.1 H (4.5-11.0) K/mm3 Hct 43.1 H (30.3-42.9) % Lymph % (Auto) 5.8 L (13.4-35.0) % [place] % (Auto) 9.2 H (0.0-7.3) % Lymph # 0.8 L (1.2-5.4) K/mm3 [place] # 1.2 H (0.0-0.8) K/mm3 Seg Neutrophils % 84.5 H (40.0-70.0) % Seg Neutrophils # 11.1 H (1.8-7.7) K/mm3 Sodium (137-145) mmol/L Chloride (98-107) mmol/L Carbon Dioxide (22-30) mmol/L BUN (7-17) mg/dL Glucose (65-100) mg/dL POC Glucose 329 H 416 H (70-105) 08/07/16 08/07/16 08/07/16 Range/Units 06:15 12:02 15:42 WBC (4.5-11.0) K/mm3 Hct (30.3-42.9) % Lymph % (Auto) (13.4-35.0) % [place] % (Auto) (0.0-7.3) % Lymph # (1.2-5.4) K/mm3 [place] # (0.0-0.8) K/mm3 Seg Neutrophils % (40.0-70.0) % Seg Neutrophils # (1.8-7.7) K/mm3 Sodium 133 L (137-145) mmol/L Chloride 93.3 L (98-107) mmol/L Carbon Dioxide 13 L D (22-30) mmol/L BUN 19 H (7-17) mg/dL Glucose 432 H (65-100) mg/dL POC Glucose 281 H 291 H (70-105)
[2016-08-08] MEDS: PROTONIX IV SCH ×2 (02:15→10:20)
[2016-08-08] MEDS ORDERED: HALDOL IM ONE (02:30)
[2016-08-08] MEDS: NACL 0.45% 1000 ML 1,000 ML IV SCH ×2 (02:44→10:16)
[2016-08-08 06:25] LABS: Basophils % (Auto) 0.3 % (0.0-1.8); Eosinophils % (Auto) 0.1 % (0.0-4.3); Hematocrit 38.4 % (30.3-42.9); Hemoglobin 12.4 gm/dl (10.1-14.3); Mean Corpuscular HGB Conc 32 % (30-34); Mean Corpuscular Hemoglobin 30 pg (28-32); Mean Corpuscular Volume 93 fl (79-97); Platelet Count 203 K/mm3 (140-440); Red Blood Count 4.12 M/mm3 (3.65-5.03); Red Cell Distribution Width 13.9 % (13.2-15.2); White Blood Count 8.4 K/mm3 (4.5-11.0)
[2016-08-08] MEDS: NOVOLOG SUB-Q SCH ×4 (06:49→22:07)
[2016-08-08 06:55] LABS: Alanine Aminotransferase 27 units/L (7-56); Albumin 3.4 g/dL (3.9-5); Albumin/Globulin Ratio 1.2 %; Alkaline Phosphatase 92 units/L (35-129); Bilirubin,Total 1.1 mg/dL (0.1-1.2); Blood Urea Nitrogen 16 mg/dL (7-17); Calcium 8.8 mg/dL (8.4-10.2); Glucose 442 mg/dL (65-100); Potassium 3.8 mmol/L (3.6-5.0); Sodium 143 mmol/L (137-145); Total Protein 6.3 g/dL (6.3-8.2)
[2016-08-08 06:57] LABS: Anion Gap 32 mmol/L
[2016-08-08 06:59] LABS: Carbon Dioxide 8 mmol/L (22-30)
[2016-08-08] MEDS: MORPHINE IV PRN ×3 (08:14→22:09)
[2016-08-08] MEDS: LOVENOX SUB-Q SCH (09:55)
--- NOTE | 2016-08-08 11:54 | Progress Note ---
Assessment and Plan IMP: Surgically stable. Metabolic encephalopathy. Ketoacidosis. PLAN: Changed IVs to D5W/1/2 NSS with 20 mEq of KCl. Talked to Dr. Fields about the ketoacidosis. Subjective Date of service: 08/08/16 Patient Reports: Positive: still having pain (incisional), no flatus, no bowel movement, other (she removed the NG tube) Objective Vital Signs - 12hr 08/08/16 08/08/16 01:40 08:15 Temperature 98.0 F Pulse Rate [ 127 H Left Radial] Respiratory 20 Rate Blood Pressure 160/70 177/84 [Left Arm] O2 Sat by Pulse 98 Oximetry - Abdomen soft, tender ( op site), bowel sounds hypoactive - Neurologic disoriented, combative - Labs 08/08/16 06:00 08/08/16 04:00 Diabetes panel 08/08/16 Range/Units 04:00 Sodium 143 D (137-145) mmol/L Potassium 3.8 D (3.6-5.0) mmol/L Chloride 107.0 (98-107) mmol/L Carbon Dioxide 8 L* (22-30) mmol/L BUN 16 (7-17) mg/dL Creatinine 0.8 (0.7-1.2) mg/dL Glucose 442 H (65-100) mg/dL Calcium 8.8 (8.4-10.2) mg/dL AST 38 (5-40) units/L ALT 27 (7-56) units/L Alkaline Phosphatase 92 (35-129) units/L Total Protein 6.3 (6.3-8.2) g/dL Albumin 3.4 L (3.9-5) g/dL Calcium panel 08/08/16 Range/Units 04:00 Calcium 8.8 (8.4-10.2) mg/dL Albumin 3.4 L (3.9-5) g/dL Pituitary panel 08/08/16 Range/Units 04:00 Sodium 143 D (137-145) mmol/L Potassium 3.8 D (3.6-5.0) mmol/L Chloride 107.0 (98-107) mmol/L Carbon Dioxide 8 L* (22-30) mmol/L BUN 16 (7-17) mg/dL Creatinine 0.8 (0.7-1.2) mg/dL Glucose 442 H (65-100) mg/dL Calcium 8.8 (8.4-10.2) mg/dL Adrenal panel 08/08/16 Range/Units 04:00 Sodium 143 D (137-145) mmol/L Potassium 3.8 D (3.6-5.0) mmol/L Chloride 107.0 (98-107) mmol/L Carbon Dioxide 8 L* (22-30) mmol/L BUN 16 (7-17) mg/dL Creatinine 0.8 (0.7-1.2) mg/dL Glucose 442 H (65-100) mg/dL Calcium 8.8 (8.4-10.2) mg/dL Total Bilirubin 1.1 (0.1-1.2) mg/dL AST 38 (5-40) units/L ALT 27 (7-56) units/L Alkaline Phosphatase 92 (35-129) units/L Total Protein 6.3 (6.3-8.2) g/dL Albumin 3.4 L (3.9-5) g/dL
[2016-08-08] MEDS: D5W/0.45% NACL/KCL 20 MEQ 20 MEQ/1,000 ML BAG IV SCH ×2 (12:06→22:11)
[2016-08-08] MEDS: ATIVAN IV PRN ×2 (13:37→18:27)
--- NOTE | 2016-08-08 17:34 | Progress Note ---
Assessment and Plan - Patient Problems (1) Metabolic acidosis Current Visit: Yes Status: Acute Plan to address problem: Iv abx- zosyn initiated ,better control of blood glucose levels and IV fluids. (2) Altered mental status Current Visit: No Status: Acute Qualifiers: Altered mental status type: delirium Coma depth: C Coma timing: C Qualified Code(s): R41.0 - Disorientation, unspecified Plan to address problem: Sec to Metabolic acidosis. And high glucose levels. (3) IDDM (insulin dependent diabetes mellitus) Current Visit: Yes Status: Chronic Plan to address problem: Uncontrolled.Add Levemir 10 units sq hs.and high dose S/S protocol. (4) CAD (coronary artery disease) Current Visit: Yes Status: Chronic Qualifiers: Coronary Disease-Associated Artery/Lesion type: [place] artery [place] vs. transplanted heart: rosebud heart Associated angina: without angina Qualified Code(s): I25.10 - Atherosclerotic heart disease of [place] coronary artery without angina pectoris Plan to address problem: Hold Plavix 75 mg for now (5) GERD (gastroesophageal reflux disease) Current Visit: Yes Status: Chronic Qualifiers: Esophagitis presence: with esophagitis Qualified Code(s): K21.0 - Gastro- esophageal reflux disease with esophagitis Plan to address problem: initiate IV protonix 40 mg bid (6) SBO (small bowel obstruction) Current Visit: Yes Status: Acute Plan to address problem: Adhesions Lysed.Had surgery by Dr Srinivas Bermudez (7) DVT prophylaxis Current Visit: Yes Status: Acute Plan to address problem: On SCD,s Subjective Date of service: 08/08/16 Principal diagnosis: Small Bowell obstruction -S/p Lysis of adhesions Interval history: Agitated and in soft restraints.No fever or chills. Has NG tube. Had lysis of adhesions and small segment of bowel resected with end to end anastomosis. Objective - Exam Narrative Exam: in soft wrist restraints.Agitated. - Constitutional Vitals: Vital Signs - 12hr 08/08/16 08/08/16 08:15 15:30 Temperature 98.0 F 98.5 F Pulse Rate [ 127 H 104 H Left Radial] Respiratory 20 22 Rate Blood Pressure 177/84 138/90 [Left Arm] O2 Sat by Pulse 98 95 Oximetry General appearance: Present: no acute distress, well-nourished - EENT Eyes: PERRL, EOM intact ENT: hearing intact, clear oral mucosa Ears: bilateral: normal - Neck Neck: supple, normal ROM - Respiratory Respiratory effort: normal Respiratory: bilateral: CTA - Breasts Breasts: normal - Cardiovascular Rhythm: regular Heart Sounds: Present: S1 & S2. Absent: gallop, rub Extremities: pulses intact, No edema, normal color, Full ROM - Gastrointestinal General gastrointestinal: Present: soft, non-tender, non-distended, normal bowel sounds, hypoactive bowel sounds Rectal Exam: deferred - Genitourinary Female genitourinary: normal - Integumentary Integumentary: clear, warm, dry - Musculoskeletal Musculoskeletal: 1, strength equal bilaterally - Neurologic Neurologic: moves all extremities - Psychiatric Psychiatric: agitated - Labs CBC & Chem 7: 08/08/16 06:00 08/08/16 04:00 Labs: Abnormal lab results 08/07/16 08/07/16 08/08/16 Range/Units 18:09 21:52 04:00 Lymph % (Auto) (13.4-35.0) % [place] % (Auto) (0.0-7.3) % Lymph # (1.2-5.4) K/mm3 [place] # (0.0-0.8) K/mm3 Seg Neutrophils % (40.0-70.0) % Carbon Dioxide 8 L* (22-30) mmol/L Glucose 442 H (65-100) mg/dL POC Glucose 315 H 376 H (70-105) Albumin 3.4 L (3.9-5) g/dL 08/08/16 Range/Units 06:00 Lymph % (Auto) 6.7 L (13.4-35.0) % [place] % (Auto) 12.9 H (0.0-7.3) % Lymph # 0.6 L (1.2-5.4) K/mm3 [place] # 1.1 H (0.0-0.8) K/mm3 Seg Neutrophils % 80.0 H (40.0-70.0) % Carbon Dioxide (22-30) mmol/L Glucose (65-100) mg/dL POC Glucose (70-105) Albumin (3.9-5) g/dL
[2016-08-08] MEDS ORDERED: NACL 0.9% 1000 ML 1,000 ML IV SCH (18:00)
[2016-08-08] MEDS: ZOSYN/NS 4.5GM/100ML 4.5 GM/100 ML VIAL IV SCH (18:47)
[2016-08-08] MEDS: PEPCID IV SCH (21:35)
[2016-08-08] MEDS: TYLENOL FEEDTUBE PRN (21:35)
[2016-08-08] MEDS ORDERED: LEVEMIR SUB-Q SCH (22:00)
[2016-08-09] MEDS: ZOSYN/NS 4.5GM/100ML 4.5 GM/100 ML VIAL IV SCH ×3 (02:24→17:57)
[2016-08-09] MEDS: ATIVAN IV PRN ×2 (02:42→18:06)
[2016-08-09 05:33] LABS: Hematocrit 40.5 % (30.3-42.9); Hemoglobin 13.6 gm/dl (10.1-14.3); Mean Corpuscular HGB Conc 34 % (30-34); Mean Corpuscular Hemoglobin 30 pg (28-32); Mean Corpuscular Volume 89 fl (79-97); Platelet Count 197 K/mm3 (140-440); Red Blood Count 4.54 M/mm3 (3.65-5.03); Red Cell Distribution Width 13.3 % (13.2-15.2); White Blood Count 6.3 K/mm3 (4.5-11.0)
[2016-08-09 05:57] LABS: Alanine Aminotransferase 31 units/L (7-56); Albumin/Globulin Ratio 0.9 %; Alkaline Phosphatase 97 units/L (35-129); Anion Gap 21 mmol/L; Bilirubin,Total 1.2 mg/dL (0.1-1.2); Blood Urea Nitrogen 14 mg/dL (7-17); Carbon Dioxide 12 mmol/L (22-30); Chloride 112.6 mmol/L (98-107); Glucose 383 mg/dL (65-100); Sodium 142 mmol/L (137-145); Total Protein 6.5 g/dL (6.3-8.2)
[2016-08-09] MEDS: NOVOLOG SUB-Q SCH ×3 (06:46→16:02)
[2016-08-09 08:03] LABS: Basophils % (Manual) 0 % (0.0-1.8); Blastocytes % (Manual) 0 %; Eosinophils % (Manual) 0 % (0.0-4.3)
[2016-08-09 08:04] LABS: Diff Status Complete; RBC Morphology Normal
[2016-08-09] MEDS: LOVENOX SUB-Q SCH (10:38)
[2016-08-09] MEDS: PEPCID IV SCH ×2 (10:38→22:49)
[2016-08-09] MEDS: MORPHINE IV PRN ×2 (11:23→16:01)
--- NOTE | 2016-08-09 13:39 | Progress Note ---
Assessment and Plan Assessment and plan: --Small bowel obstruction status post surgery Continue nothing by mouth status, IV fluids, pain medications Intermittent suction, supportive care Surgery following --Metabolic encephalopathy Secondary to underlying disease process, and metabolic abnormalities Neurochecks, optimal control of blood sugars and electrolytes --Type 2 diabetes mellitus Uncontrolled, Accu-Chek sliding scale coverage and ADA diet Increase insulin dose to 15 units Lantus --Metabolic acidosis Aggressive IV fluids, add sodium bicarbonate to the tip Closely monitor --GERD Continue Protonix --DVT prophylaxis with Lovenox and SCDs --CODE STATUS, full code Onsets and recommendations noted and appreciated Closely monitor the patient had just the management as needed Patient is confused at times, we will restrain as needed for safety History Interval history: Patient is seen and evaluated in her room this morning medical records reviewed Patient underwent exploratory laparotomy and lysis of adhesions Nothing by mouth status on pain medications, sedated No new events reported by the nursing staff, no distress Vital signs reviewed Hospitalist Physical - Constitutional Vitals: Temp Pulse Resp BP Pulse Ox 98.8 F 115 H 20 143/86 100 08/09/16 08:00 08/09/16 08:00 08/09/16 08:00 08/09/16 08:00 08/09/16 10:00 General appearance: Present: mild distress, well-nourished, other (confused and sedated) - EENT Eyes: Present: PERRL, EOM intact - Neck Neck: Present: supple, normal ROM - Respiratory Respiratory effort: normal Respiratory: bilateral: diminished, negative: rales, rhonchi, wheezing - Cardiovascular Rhythm: regular Heart Sounds: Present: S1 & S2 - Extremities Extremities: no ischemia, pulses intact, pulses symmetrical Peripheral Pulses: within normal limits - Abdominal General gastrointestinal: soft, distended (mild), absent bowel sounds - Integumentary Integumentary: Present: clear, warm - Psychiatric Psychiatric: agitated (confused) - Neurologic Neurologic: moves all extremities Results - Labs CBC & Chem 7: 08/09/16 04:57 08/09/16 04:57 Labs: Laboratory Last Values WBC 6.3 K/mm3 (4.5-11.0) 08/09/16 04:57 RBC 4.54 M/mm3 (3.65-5.03) 08/09/16 04:57 Hgb 13.6 gm/dl (10.1-14.3) 08/09/16 04:57 Hct 40.5 % (30.3-42.9) 08/09/16 04:57 MCV 89 fl (79-97) D 08/09/16 04:57 MCH 30 pg (28-32) 08/09/16 04:57 MCHC 34 % (30-34) 08/09/16 04:57 RDW 13.3 % (13.2-15.2) 08/09/16 04:57 Plt Count 197 K/mm3 (140-440) 08/09/16 04:57 Lymph % (Auto) 6.7 % (13.4-35.0) L 08/08/16 06:00 [place] % (Auto) 12.9 % (0.0-7.3) H 08/08/16 06:00 Eos % (Auto) 0.1 % (0.0-4.3) 08/08/16 06:00 Baso % (Auto) 0.3 % (0.0-1.8) 08/08/16 06:00 Lymph # 0.6 K/mm3 (1.2-5.4) L 08/08/16 06:00 [place] # 1.1 K/mm3 (0.0-0.8) H 08/08/16 06:00 Eos # 0.0 K/mm3 (0.0-0.4) 08/08/16 06:00 Baso # 0.0 K/mm3 (0.0-0.1) 08/08/16 06:00 Add Manual Diff Complete 08/09/16 04:57 Total Counted 100 08/09/16 04:57 Seg Neutrophils % 80.0 % (40.0-70.0) H 08/08/16 06:00 Seg Neuts % (Manual) 9.0 % (40.0-70.0) L 08/09/16 04:57 Band Neutrophils % 77.0 % 08/09/16 04:57 Lymphocytes % (Manual) 5.0 % (13.4-35.0) L 08/09/16 04:57 Reactive Lymphs % (Man) 0 % 08/09/16 04:57 Monocytes % (Manual) 9.0 % (0.0-7.3) H 08/09/16 04:57 Eosinophils % (Manual) 0 % (0.0-4.3) 08/09/16 04:57 Basophils % (Manual) 0 % (0.0-1.8) 08/09/16 04:57 Metamyelocytes % 0 % 08/09/16 04:57 Myelocytes % 0 % 08/09/16 04:57 Promyelocytes % 0 % 08/09/16 04:57 Blast Cells % 0 % 08/09/16 04:57 Nucleated RBC % Not Reportable 08/09/16 04:57 Seg Neutrophils # 6.7 K/mm3 (1.8-7.7) 08/08/16 06:00 Seg Neutrophils # Man 0.6 K/mm3 (1.8-7.7) L 08/09/16 04:57 Band Neutrophils # 4.9 K/mm3 08/09/16 04:57 Lymphocytes # (Manual) 0.3 K/mm3 (1.2-5.4) L 08/09/16 04:57 Abs React Lymphs (Man) 0.0 K/mm3 08/09/16 04:57 Monocytes # (Manual) 0.6 K/mm3 (0.0-0.8) 08/09/16 04:57 Eosinophils # (Manual) 0.0 K/mm3 (0.0-0.4) 08/09/16 04:57 Basophils # (Manual) 0.0 K/mm3 (0.0-0.1) 08/09/16 04:57 Metamyelocytes # 0.0 K/mm3 08/09/16 04:57 Myelocytes # 0.0 K/mm3 08/09/16 04:57 Promyelocytes # 0.0 K/mm3 08/09/16 04:57 Blast Cells # 0.0 K/mm3 08/09/16 04:57 WBC Morphology Not Reportable 08/09/16 04:57 Hypersegmented Neuts Not Reportable 08/09/16 04:57 Hyposegmented Neuts Not Reportable 08/09/16 04:57 Hypogranular Neuts Not Reportable 08/09/16 04:57 Smudge Cells Not Reportable 08/09/16 04:57 Toxic Granulation Not Reportable 08/09/16 04:57 Toxic Vacuolation Not Reportable 08/09/16 04:57 Dohle Bodies Not Reportable 08/09/16 04:57 [place]uet Anomaly Not Reportable 08/09/16 04:57 Ritesh Rods Not Reportable 08/09/16 04:57 Platelet Estimate Appears normal 08/09/16 04:57 Clumped Platelets Not Reportable 08/09/16 04:57 Plt Clumps, EDTA Not Reportable 08/09/16 04:57 Large Platelets Not Reportable 08/09/16 04:57 Giant Platelets Not Reportable 08/09/16 04:57 Platelet Satelliting Not Reportable 08/09/16 04:57 Plt Morphology Comment Not Reportable 08/09/16 04:57 RBC Morphology Normal 08/09/16 04:57 Dimorphic RBCs Not Reportable 08/09/16 04:57 Polychromasia Not Reportable 08/09/16 04:57 Hypochromasia Not Reportable 08/09/16 04:57 Poikilocytosis Not Reportable 08/09/16 04:57 Anisocytosis Not Reportable 08/09/16 04:57 Microcytosis Not Reportable 08/09/16 04:57 Macrocytosis Not Reportable 08/09/16 04:57 Spherocytes Not Reportable 08/09/16 04:57 Pappenheimer Bodies Not Reportable 08/09/16 04:57 Sickle Cells Not Reportable 08/09/16 04:57 Target Cells Not Reportable 08/09/16 04:57 Tear Drop Cells Not Reportable 08/09/16 04:57 Ovalocytes Not Reportable 08/09/16 04:57 Helmet Cells Not Reportable 08/09/16 04:57 [place] Bodies Not Reportable 08/09/16 04:57 [place] Rings Not Reportable 08/09/16 04:57 [place] Cells Not Reportable 08/09/16 04:57 Bite Cells Not Reportable 08/09/16 04:57 Crenated Cell Not Reportable 08/09/16 04:57 Elliptocytes Not Reportable 08/09/16 04:57 Acanthocytes (Spur) Not Reportable 08/09/16 04:57 Rouleaux Not Reportable 08/09/16 04:57 Hemoglobin C Crystals Not Reportable 08/09/16 04:57 Schistocytes Not Reportable 08/09/16 04:57 Malaria parasites Not Reportable 08/09/16 04:57 [place] Bodies Not Reportable 08/09/16 04:57 Hem Pathologist Commnt No 08/09/16 04:57 VBG pH 7.375 (7.320-7.420) 08/05/16 22:59 Sodium 142 mmol/L (137-145) 08/09/16 04:57 Potassium 4.0 mmol/L (3.6-5.0) 08/09/16 04:57 Chloride 112.6 mmol/L (98-107) H 08/09/16 04:57 Carbon Dioxide 12 mmol/L (22-30) L 08/09/16 04:57 Anion Gap 21 mmol/L 08/09/16 04:57 BUN 14 mg/dL (7-17) 08/09/16 04:57 Creatinine 0.7 mg/dL (0.7-1.2) 08/09/16 04:57 Estimated GFR > 60 ml/min 08/09/16 04:57 BUN/Creatinine Ratio 20.00 % 08/09/16 04:57 Glucose 383 mg/dL (65-100) H 08/09/16 04:57 POC Glucose 376 (70-105) H 08/07/16 21:52 Lactic Acid 2.4 mmol/L (0.7-2.0) H* 08/05/16 22:59 Calcium 9.0 mg/dL (8.4-10.2) 08/09/16 04:57 Total Bilirubin 1.2 mg/dL (0.1-1.2) 08/09/16 04:57 AST 55 units/L (5-40) H 08/09/16 04:57 ALT 31 units/L (7-56) 08/09/16 04:57 Alkaline Phosphatase 97 units/L (35-129) 08/09/16 04:57 Total Protein 6.5 g/dL (6.3-8.2) 08/09/16 04:57 Albumin 3.0 g/dL (3.9-5) L 08/09/16 04:57 Albumin/Globulin Ratio 0.9 % 08/09/16 04:57 Lipase 13 units/L (13-60) 08/05/16 22:59 Urine Color Straw (Yellow) 08/05/16 22:35 Urine Turbidity Clear (Clear) 08/05/16 22:35 Urine pH 8.0 (5.0-7.0) H 08/05/16 22:35 Ur Specific [place] 1.022 (1.003-1.030) 08/05/16 22:35 Urine Protein <15 mg/dl mg/dL (Negative) 08/05/16 22:35 Urine Glucose (UA) >=500 mg/dL (Negative) 08/05/16 22:35 Urine Ketones 20 mg/dL (Negative) 08/05/16 22:35 Urine Blood Neg (Negative) 08/05/16 22:35 Urine Nitrite Neg (Negative) 08/05/16 22:35 Urine Bilirubin Neg (Negative) 08/05/16 22:35 Urine Urobilinogen < 2.0 mg/dL (<2.0) 08/05/16 22:35 Ur Leukocyte Esterase Neg (Negative) 08/05/16 22:35 Urine WBC (Auto) 2.0 /HPF (0.0-6.0) 08/05/16 22:35 Urine RBC (Auto) 3.0 /HPF (0.0-6.0) 08/05/16 22:35 U Epithel Cells (Auto) < 1.0 /HPF (0-13.0) 08/05/16 22:35 Blood Type A POSITIVE 08/07/16 11:50 Antibody Screen Negative 08/07/16 11:50
--- NOTE | 2016-08-09 14:46 | Progress Note ---
Assessment and Plan IMP: Surgically stable for the postoperative day. Still restless needed restraining, withdrawal syndrome? PLAN: Continue NG tube, Mcclure catheter will be kept in place until her encephalopathy resolves. Subjective Date of service: 08/09/16 Patient Reports: Positive: no new complaints, no flatus, no bowel movement Objective Vital Signs - 12hr 08/09/16 08/09/16 08/09/16 04:25 08:00 10:00 Temperature 98.9 F 98.8 F Pulse Rate [ 115 H From Monitor] Pulse Rate [ 95 H 115 H Left Radial] Respiratory 20 20 Rate Blood Pressure 124/75 143/86 [Left Arm] O2 Sat by Pulse 95 100 100 Oximetry - Abdomen soft, bowel sounds hypoactive, wound (dressings dry and clear) - Neurologic other (6. Restless, on restraints.) - Labs 08/09/16 04:57 08/09/16 04:57 Diabetes panel 08/09/16 Range/Units 04:57 Sodium 142 (137-145) mmol/L Potassium 4.0 (3.6-5.0) mmol/L Chloride 112.6 H (98-107) mmol/L Carbon Dioxide 12 L (22-30) mmol/L BUN 14 (7-17) mg/dL Creatinine 0.7 (0.7-1.2) mg/dL Glucose 383 H (65-100) mg/dL Calcium 9.0 (8.4-10.2) mg/dL AST 55 H (5-40) units/L ALT 31 (7-56) units/L Alkaline Phosphatase 97 (35-129) units/L Total Protein 6.5 (6.3-8.2) g/dL Albumin 3.0 L (3.9-5) g/dL Calcium panel 08/09/16 Range/Units 04:57 Calcium 9.0 (8.4-10.2) mg/dL Albumin 3.0 L (3.9-5) g/dL Pituitary panel 08/09/16 Range/Units 04:57 Sodium 142 (137-145) mmol/L Potassium 4.0 (3.6-5.0) mmol/L Chloride 112.6 H (98-107) mmol/L Carbon Dioxide 12 L (22-30) mmol/L BUN 14 (7-17) mg/dL Creatinine 0.7 (0.7-1.2) mg/dL Glucose 383 H (65-100) mg/dL Calcium 9.0 (8.4-10.2) mg/dL Adrenal panel 08/09/16 Range/Units 04:57 Sodium 142 (137-145) mmol/L Potassium 4.0 (3.6-5.0) mmol/L Chloride 112.6 H (98-107) mmol/L Carbon Dioxide 12 L (22-30) mmol/L BUN 14 (7-17) mg/dL Creatinine 0.7 (0.7-1.2) mg/dL Glucose 383 H (65-100) mg/dL Calcium 9.0 (8.4-10.2) mg/dL Total Bilirubin 1.2 (0.1-1.2) mg/dL AST 55 H (5-40) units/L ALT 31 (7-56) units/L Alkaline Phosphatase 97 (35-129) units/L Total Protein 6.5 (6.3-8.2) g/dL Albumin 3.0 L (3.9-5) g/dL
[2016-08-09] MEDS ORDERED: NACL 0.9% 1000 ML 1,000 ML with SODIUM BICARBONATE 50 MEQ IV SCH (19:40)
[2016-08-09] MEDS: LEVEMIR SUB-Q SCH (22:51)
[2016-08-10] MEDS: NOVOLOG SUB-Q SCH ×3 (00:02→23:54)
[2016-08-10] MEDS: ZOSYN/NS 4.5GM/100ML 4.5 GM/100 ML VIAL IV SCH ×3 (02:39→19:31)
[2016-08-10 08:03] LABS: Basophils % (Auto) 0.2 % (0.0-1.8); Eosinophils % (Auto) 0.1 % (0.0-4.3); Hematocrit 40.8 % (30.3-42.9); Hemoglobin 13.6 gm/dl (10.1-14.3); Mean Corpuscular HGB Conc 33 % (30-34); Mean Corpuscular Hemoglobin 29 pg (28-32); Mean Corpuscular Volume 88 fl (79-97); Platelet Count 210 K/mm3 (140-440); Red Blood Count 4.63 M/mm3 (3.65-5.03); Red Cell Distribution Width 13.7 % (13.2-15.2); White Blood Count 10.4 K/mm3 (4.5-11.0)
[2016-08-10 08:36] LABS: Alanine Aminotransferase 27 units/L (7-56); Albumin/Globulin Ratio 0.8 %; Alkaline Phosphatase 109 units/L (35-129); Anion Gap 20 mmol/L; Blood Urea Nitrogen 14 mg/dL (7-17); Calcium 8.9 mg/dL (8.4-10.2); Carbon Dioxide 16 mmol/L (22-30); Chloride 115.9 mmol/L (98-107); Glucose 231 mg/dL (65-100); Magnesium 1.9 mg/dL (1.7-2.3); Sodium 149 mmol/L (137-145); Total Protein 6.6 g/dL (6.3-8.2)
[2016-08-10 09:05] LABS: Potassium 3.1 mmol/L (3.6-5.0)
[2016-08-10] MEDS ORDERED: KPHOS 40 MMOL in NACL 0.9% 500 ML 500 ML IV ONE (10:22)
--- NOTE | 2016-08-10 10:51 | Progress Note ---
Assessment and Plan Impression: Surgically stable third postoperative day. Metabolic encephalopathy. Plans: Continue nothing by mouth with NG tube. Keep Mcclure catheter in place because of restlessness. Labs in a.m. Subjective Date of service: 08/10/16 Patient Reports: Positive: no new complaints Objective Vital Signs - 12hr 08/10/16 08/10/16 08/10/16 00:00 04:40 07:30 Temperature 98.9 F 98.1 F 100.3 F H Pulse Rate [ 115 H From Monitor] Pulse Rate [ 109 H 104 H Left] Respiratory 20 18 28 H Rate Blood Pressure 160/91 155/91 175/99 [Left Arm] O2 Sat by Pulse 95 96 94 Oximetry 08/10/16 10:00 Temperature Pulse Rate [ From Monitor] Pulse Rate [ Left] Respiratory Rate Blood Pressure [Left Arm] O2 Sat by Pulse 94 Oximetry - Abdomen soft, bowel sounds hypoactive, wound (dry, clear and healing well), other (NG tube in place) - Genitourinary other (Mcclure catheter in place) - Psychiatric other (more responsive to verbal stimuli today. Still restless.) - Labs 08/10/16 07:07 08/10/16 07:07 Diabetes panel 08/10/16 Range/Units 07:07 Sodium 149 H (137-145) mmol/L Potassium 3.1 L D (3.6-5.0) mmol/L Chloride 115.9 H (98-107) mmol/L Carbon Dioxide 16 L (22-30) mmol/L BUN 14 (7-17) mg/dL Creatinine 0.8 (0.7-1.2) mg/dL Glucose 231 H (65-100) mg/dL Calcium 8.9 (8.4-10.2) mg/dL AST 29 (5-40) units/L ALT 27 (7-56) units/L Alkaline Phosphatase 109 (35-129) units/L Total Protein 6.6 (6.3-8.2) g/dL Albumin 3.0 L (3.9-5) g/dL Calcium panel 08/10/16 Range/Units 07:07 Calcium 8.9 (8.4-10.2) mg/dL Phosphorus 1.0 L (2.5-4.5) mg/dL Albumin 3.0 L (3.9-5) g/dL Pituitary panel 08/10/16 Range/Units 07:07 Sodium 149 H (137-145) mmol/L Potassium 3.1 L D (3.6-5.0) mmol/L Chloride 115.9 H (98-107) mmol/L Carbon Dioxide 16 L (22-30) mmol/L BUN 14 (7-17) mg/dL Creatinine 0.8 (0.7-1.2) mg/dL Glucose 231 H (65-100) mg/dL Calcium 8.9 (8.4-10.2) mg/dL Adrenal panel 08/10/16 Range/Units 07:07 Sodium 149 H (137-145) mmol/L Potassium 3.1 L D (3.6-5.0) mmol/L Chloride 115.9 H (98-107) mmol/L Carbon Dioxide 16 L (22-30) mmol/L BUN 14 (7-17) mg/dL Creatinine 0.8 (0.7-1.2) mg/dL Glucose 231 H (65-100) mg/dL Calcium 8.9 (8.4-10.2) mg/dL Total Bilirubin 1.0 (0.1-1.2) mg/dL AST 29 (5-40) units/L ALT 27 (7-56) units/L Alkaline Phosphatase 109 (35-129) units/L Total Protein 6.6 (6.3-8.2) g/dL Albumin 3.0 L (3.9-5) g/dL
[2016-08-10] MEDS: PEPCID IV SCH ×2 (11:12→22:55)
[2016-08-10] MEDS: LOVENOX SUB-Q SCH (11:12)
[2016-08-10] MEDS: MORPHINE IV PRN (13:54)
[2016-08-10] MEDS: KCL IV SCH (14:54)
[2016-08-10] MEDS: SODIUM BICARBONATE IV SCH (14:54)
[2016-08-10] MEDS: NACL 0.45% IV SCH (14:54)
[2016-08-10] MEDS: KCL 10MEQ/100ML 10 MEQ/100 ML BAG IV SCH ×4 (14:55→19:29)
[2016-08-10] MEDS: ATIVAN IV PRN (23:30)
[2016-08-10] MEDS: LEVEMIR SUB-Q SCH (23:52)
[2016-08-11] MEDS: SODIUM BICARBONATE IV SCH ×2 (02:47→14:00)
[2016-08-11] MEDS: NACL 0.45% IV SCH ×2 (02:47→14:00)
[2016-08-11] MEDS: KCL IV SCH ×2 (02:47→14:00)
[2016-08-11] MEDS: APRESOLINE IV PRN (04:44)
[2016-08-11] MEDS: MORPHINE IV PRN (05:21)
[2016-08-11] MEDS: NOVOLOG SUB-Q SCH ×3 (07:30→16:30)
[2016-08-11 07:57] LABS: Anion Gap 21 mmol/L; BUN/Creatinine Ratio 26.66; Blood Urea Nitrogen 16 mg/dL (7-17); Calcium 8.6 mg/dL (8.4-10.2); Carbon Dioxide 18 mmol/L (22-30); Chloride 115.6 mmol/L (98-107); Glucose 214 mg/dL (65-100); Magnesium 1.9 mg/dL (1.7-2.3); Sodium 152 mmol/L (137-145)
[2016-08-11 08:10] LABS: Phosphorous 0.8 mg/dL (2.5-4.5)
--- NOTE | 2016-08-11 08:51 | Progress Note ---
Assessment and Plan IMP: Resolving post op ileus. Metabolic encephalopathy. Hyper osmolar dehydration. PLAN: Continue with NG tube and Mcclure. Will start d5with.3 ss at 100 ml /hour. Subjective Date of service: 08/11/16 Patient Reports: Positive: no flatus, no bowel movement, other Objective Vital Signs - 12hr 08/10/16 08/11/16 08/11/16 22:00 00:00 04:44 Temperature 98.7 F Pulse Rate 107 H Pulse Rate [ 107 H 113 H Left] Respiratory 22 22 Rate Blood Pressure 174/84 Blood Pressure 183/98 [Left Arm] O2 Sat by Pulse 97 Oximetry 08/11/16 08/11/16 08/11/16 05:00 08:21 08:26 Temperature 98.0 F 98.6 F Pulse Rate Pulse Rate [ 107 H 108 H Left] Respiratory 22 24 Rate Blood Pressure Blood Pressure 183/98 161/90 [Left Arm] O2 Sat by Pulse 99 95 96 Oximetry - Abdomen soft, not tender, bowel sounds normal, not distended, wound (dry, clear and healing well.), other (NG in place, output in last 24 hours not documented in chart) - Genitourinary other ([place] in place) - Psychiatric other (still disoriented and restless) - Labs 08/10/16 07:07 08/11/16 06:38 Diabetes panel 08/10/16 08/11/16 Range/Units 07:07 06:38 Sodium 152 H (137-145) mmol/L Potassium 3.1 L D 3.0 L (3.6-5.0) mmol/L Chloride 115.6 H (98-107) mmol/L Carbon Dioxide 18 L (22-30) mmol/L BUN 16 (7-17) mg/dL Creatinine 0.6 L (0.7-1.2) mg/dL Glucose 214 H (65-100) mg/dL Calcium 8.6 (8.4-10.2) mg/dL Calcium panel 08/10/16 08/11/16 Range/Units 07:07 06:38 Calcium 8.6 (8.4-10.2) mg/dL Phosphorus 1.0 L 0.8 L* (2.5-4.5) mg/dL Pituitary panel 08/10/16 08/11/16 Range/Units 07:07 06:38 Sodium 152 H (137-145) mmol/L Potassium 3.1 L D 3.0 L (3.6-5.0) mmol/L Chloride 115.6 H (98-107) mmol/L Carbon Dioxide 18 L (22-30) mmol/L BUN 16 (7-17) mg/dL Creatinine 0.6 L (0.7-1.2) mg/dL Glucose 214 H (65-100) mg/dL Calcium 8.6 (8.4-10.2) mg/dL Adrenal panel 08/10/16 08/11/16 Range/Units 07:07 06:38 Sodium 152 H (137-145) mmol/L Potassium 3.1 L D 3.0 L (3.6-5.0) mmol/L Chloride 115.6 H (98-107) mmol/L Carbon Dioxide 18 L (22-30) mmol/L BUN 16 (7-17) mg/dL Creatinine 0.6 L (0.7-1.2) mg/dL Glucose 214 H (65-100) mg/dL Calcium 8.6 (8.4-10.2) mg/dL
[2016-08-11] MEDS ORDERED: KCL 10MEQ/100ML 10 MEQ/100 ML BAG IV SCH (10:00)
[2016-08-11] MEDS ORDERED: D5NS0.3 1,000 ML IV SCH (10:00)
[2016-08-11] MEDS: ZOSYN/NS 4.5GM/100ML 4.5 GM/100 ML VIAL IV SCH ×3 (10:02→17:45)
[2016-08-11] MEDS: LOVENOX SUB-Q SCH (10:03)
[2016-08-11] MEDS: PEPCID IV SCH ×2 (10:03→22:31)
[2016-08-11] MEDS: ATIVAN IV PRN (10:18)
[2016-08-11] MEDS: KCL 10MEQ/100ML 10 MEQ/100 ML BAG IV SCH ×2 (11:23→12:49)
--- NOTE | 2016-08-11 13:21 | Progress Note ---
Assessment and Plan Assessment and plan: --Severe hypophosphatemia To place bright 40 mEq K-Phos IV every 4 hours 2 Monitor phosphate levels --Hypokalemia replace per protocol and monitor levels --Hyponatremia Change IV fluids to D5 half normal, closely monitor electrolytes --Metabolic acidosis Aggressive IV hydration, replacement therapy --Icmp-zz-bwcchypx protein calorie malnutrition Supportive care and nutrition supplement when patient is able to take by mouth Consider TPN --Small bowel obstruction status post surgery Continue nothing by mouth status, IV fluids, pain medications Intermittent suction, supportive care, Surgery following --Metabolic encephalopathy Secondary to underlying disease process, and metabolic abnormalities Supportive care --Type 2 diabetes mellitus Uncontrolled, Accu-Chek sliding scale coverage and ADA diet Increase insulin dose to 15 units Lantus --DVT prophylaxis with Lovenox and SCDs --CODE STATUS, full code Plan of care discussed with the surgeon and patient's nurse History Interval history: Patient is seen and evaluated in her room this morning medical records reviewed Patient is confused, remains nothing by mouth status, Dobb[place] in place Mild agitation, not in acute distress Hospitalist Physical - Constitutional Vitals: Temp Pulse Resp BP Pulse Ox 99.3 F 102 H 20 173/84 98 08/11/16 12:36 08/11/16 12:36 08/11/16 12:36 08/11/16 12:36 08/11/16 12:36 General appearance: Present: no acute distress, well-nourished, other (confused and agitated) - EENT Eyes: Present: PERRL, EOM intact - Neck Neck: Present: supple, normal ROM - Respiratory Respiratory: bilateral: diminished, negative: rales, rhonchi, wheezing - Cardiovascular Rhythm: regular Heart Sounds: Present: S1 & S2 - Extremities Extremities: no ischemia, pulses intact, pulses symmetrical Peripheral Pulses: within normal limits - Abdominal General gastrointestinal: soft, non-tender, distended (mild distention), absent bowel sounds - Integumentary Integumentary: Present: clear, warm - Psychiatric Psychiatric: other (confused and agitated) - Neurologic Neurologic: moves all extremities Results - Labs CBC & Chem 7: 08/12/16 07:16 08/12/16 07:16 Labs: Laboratory Last Values WBC 10.4 K/mm3 (4.5-11.0) 08/10/16 07:07 RBC 4.63 M/mm3 (3.65-5.03) 08/10/16 07:07 Hgb 13.6 gm/dl (10.1-14.3) 08/10/16 07:07 Hct 40.8 % (30.3-42.9) 08/10/16 07:07 MCV 88 fl (79-97) 08/10/16 07:07 MCH 29 pg (28-32) 08/10/16 07:07 MCHC 33 % (30-34) 08/10/16 07:07 RDW 13.7 % (13.2-15.2) 08/10/16 07:07 Plt Count 210 K/mm3 (140-440) 08/10/16 07:07 Lymph % (Auto) 13.6 % (13.4-35.0) 08/10/16 07:07 [place] % (Auto) 8.6 % (0.0-7.3) H 08/10/16 07:07 Eos % (Auto) 0.1 % (0.0-4.3) 08/10/16 07:07 Baso % (Auto) 0.2 % (0.0-1.8) 08/10/16 07:07 Lymph # 1.4 K/mm3 (1.2-5.4) 08/10/16 07:07 [place] # 0.9 K/mm3 (0.0-0.8) H 08/10/16 07:07 Eos # 0.0 K/mm3 (0.0-0.4) 08/10/16 07:07 Baso # 0.0 K/mm3 (0.0-0.1) 08/10/16 07:07 Add Manual Diff Complete 08/09/16 04:57 Total Counted 100 08/09/16 04:57 Seg Neutrophils % 77.5 % (40.0-70.0) H 08/10/16 07:07 Seg Neuts % (Manual) 9.0 % (40.0-70.0) L 08/09/16 04:57 Band Neutrophils % 77.0 % 08/09/16 04:57 Lymphocytes % (Manual) 5.0 % (13.4-35.0) L 08/09/16 04:57 Reactive Lymphs % (Man) 0 % 08/09/16 04:57 Monocytes % (Manual) 9.0 % (0.0-7.3) H 08/09/16 04:57 Eosinophils % (Manual) 0 % (0.0-4.3) 08/09/16 04:57 Basophils % (Manual) 0 % (0.0-1.8) 08/09/16 04:57 Metamyelocytes % 0 % 08/09/16 04:57 Myelocytes % 0 % 08/09/16 04:57 Promyelocytes % 0 % 08/09/16 04:57 Blast Cells % 0 % 08/09/16 04:57 Nucleated RBC % Not Reportable 08/09/16 04:57 Seg Neutrophils # 8.1 K/mm3 (1.8-7.7) H 08/10/16 07:07 Seg Neutrophils # Man 0.6 K/mm3 (1.8-7.7) L 08/09/16 04:57 Band Neutrophils # 4.9 K/mm3 08/09/16 04:57 Lymphocytes # (Manual) 0.3 K/mm3 (1.2-5.4) L 08/09/16 04:57 Abs React Lymphs (Man) 0.0 K/mm3 08/09/16 04:57 Monocytes # (Manual) 0.6 K/mm3 (0.0-0.8) 08/09/16 04:57 Eosinophils # (Manual) 0.0 K/mm3 (0.0-0.4) 08/09/16 04:57 Basophils # (Manual) 0.0 K/mm3 (0.0-0.1) 08/09/16 04:57 Metamyelocytes # 0.0 K/mm3 08/09/16 04:57 Myelocytes # 0.0 K/mm3 08/09/16 04:57 Promyelocytes # 0.0 K/mm3 08/09/16 04:57 Blast Cells # 0.0 K/mm3 08/09/16 04:57 WBC Morphology Not Reportable 08/09/16 04:57 Hypersegmented Neuts Not Reportable 08/09/16 04:57 Hyposegmented Neuts Not Reportable 08/09/16 04:57 Hypogranular Neuts Not Reportable 08/09/16 04:57 Smudge Cells Not Reportable 08/09/16 04:57 Toxic Granulation Not Reportable 08/09/16 04:57 Toxic Vacuolation Not Reportable 08/09/16 04:57 Dohle Bodies Not Reportable 08/09/16 04:57 Pelger-Huet Anomaly Not Reportable 08/09/16 04:57 Ritesh Rods Not Reportable 08/09/16 04:57 Platelet Estimate Appears normal 08/09/16 04:57 Clumped Platelets Not Reportable 08/09/16 04:57 Plt Clumps, EDTA Not Reportable 08/09/16 04:57 Large Platelets Not Reportable 08/09/16 04:57 Giant Platelets Not Reportable 08/09/16 04:57 Platelet Satelliting Not Reportable 08/09/16 04:57 Plt Morphology Comment Not Reportable 08/09/16 04:57 RBC Morphology Normal 08/09/16 04:57 Dimorphic RBCs Not Reportable 08/09/16 04:57 Polychromasia Not Reportable 08/09/16 04:57 Hypochromasia Not Reportable 08/09/16 04:57 Poikilocytosis Not Reportable 08/09/16 04:57 Anisocytosis Not Reportable 08/09/16 04:57 Microcytosis Not Reportable 08/09/16 04:57 Macrocytosis Not Reportable 08/09/16 04:57 Spherocytes Not Reportable 08/09/16 04:57 Pappenheimer Bodies Not Reportable 08/09/16 04:57 Sickle Cells Not Reportable 08/09/16 04:57 Target Cells Not Reportable 08/09/16 04:57 Tear Drop Cells Not Reportable 08/09/16 04:57 Ovalocytes Not Reportable 08/09/16 04:57 Helmet Cells Not Reportable 08/09/16 04:57 [place] Bodies Not Reportable 08/09/16 04:57 [place] Rings Not Reportable 08/09/16 04:57 [place] Cells Not Reportable 08/09/16 04:57 Bite Cells Not Reportable 08/09/16 04:57 Crenated Cell Not Reportable 08/09/16 04:57 Elliptocytes Not Reportable 08/09/16 04:57 Acanthocytes (Spur) Not Reportable 08/09/16 04:57 Rouleaux Not Reportable 08/09/16 04:57 Hemoglobin C Crystals Not Reportable 08/09/16 04:57 Schistocytes Not Reportable 08/09/16 04:57 Malaria parasites Not Reportable 08/09/16 04:57 [place] Bodies Not Reportable 08/09/16 04:57 Hem Pathologist Commnt No 08/09/16 04:57 VBG pH 7.375 (7.320-7.420) 08/05/16 22:59 Sodium 152 mmol/L (137-145) H 08/11/16 06:38 Potassium 3.0 mmol/L (3.6-5.0) L 08/11/16 06:38 Chloride 115.6 mmol/L (98-107) H 08/11/16 06:38 Carbon Dioxide 18 mmol/L (22-30) L 08/11/16 06:38 Anion Gap 21 mmol/L 08/11/16 06:38 BUN 16 mg/dL (7-17) 08/11/16 06:38 Creatinine 0.6 mg/dL (0.7-1.2) L 08/11/16 06:38 Estimated GFR > 60 ml/min 08/11/16 06:38 BUN/Creatinine Ratio 26.66 % 08/11/16 06:38 Glucose 214 mg/dL (65-100) H 08/11/16 06:38 POC Glucose 376 (70-105) H 08/07/16 21:52 Lactic Acid 2.4 mmol/L (0.7-2.0) H* 08/05/16 22:59 Calcium 8.6 mg/dL (8.4-10.2) 08/11/16 06:38 Phosphorus 0.8 mg/dL (2.5-4.5) L* 08/11/16 06:38 Magnesium 1.9 mg/dL (1.7-2.3) 08/11/16 06:38 Total Bilirubin 1.0 mg/dL (0.1-1.2) 08/10/16 07:07 AST 29 units/L (5-40) 08/10/16 07:07 ALT 27 units/L (7-56) 08/10/16 07:07 Alkaline Phosphatase 109 units/L (35-129) 08/10/16 07:07 Total Protein 6.6 g/dL (6.3-8.2) 08/10/16 07:07 Albumin 3.0 g/dL (3.9-5) L 08/10/16 07:07 Albumin/Globulin Ratio 0.8 % 08/10/16 07:07 Lipase 13 units/L (13-60) 08/05/16 22:59 Urine Color Straw (Yellow) 08/05/16 22:35 Urine Turbidity Clear (Clear) 08/05/16 22:35 Urine pH 8.0 (5.0-7.0) H 08/05/16 22:35 Ur Specific [place] 1.022 (1.003-1.030) 08/05/16 22:35 Urine Protein <15 mg/dl mg/dL (Negative) 08/05/16 22:35 Urine Glucose (UA) >=500 mg/dL (Negative) 08/05/16 22:35 Urine Ketones 20 mg/dL (Negative) 08/05/16 22:35 Urine Blood Neg (Negative) 08/05/16 22:35 Urine Nitrite Neg (Negative) 08/05/16 22:35 Urine Bilirubin Neg (Negative) 08/05/16 22:35 Urine Urobilinogen < 2.0 mg/dL (<2.0) 08/05/16 22:35 Ur Leukocyte Esterase Neg (Negative) 08/05/16 22:35 Urine WBC (Auto) 2.0 /HPF (0.0-6.0) 08/05/16 22:35 Urine RBC (Auto) 3.0 /HPF (0.0-6.0) 08/05/16 22:35 U Epithel Cells (Auto) < 1.0 /HPF (0-13.0) 08/05/16 22:35 Blood Type A POSITIVE 08/07/16 11:50 Antibody Screen Negative 08/07/16 11:50
--- NOTE | 2016-08-11 13:22 | Progress Note ---
Assessment and Plan Assessment and plan: --Hypokalemia Replenish per protocol and monitor levels --Metabolic acidosis mild improvement Closely monitor, replacement therapy aggressive IV fluids --Severe hypophosphatemia K-Phos IV and closely monitor --[id number] protein calorie malnutrition Patient post surgical candidate, nutrition supplements 1 patient is able to Consider TPN, will discuss the surgery --Small bowel obstruction status post surgery Continue nothing by mouth status, IV fluids, pain medications Intermittent suction, supportive care, Surgery following --Metabolic encephalopathy Secondary to underlying disease process, and metabolic abnormalities Supportive care --Type 2 diabetes mellitus Uncontrolled, Accu-Chek sliding scale coverage and ADA diet Increase insulin dose to 15 units Lantus --DVT prophylaxis with Lovenox and SCDs --CODE STATUS, full code Onsets and recommendations noted and appreciated patient's condition treatment plan discussed in detail with the patient's nurse As well as the surgeon History Interval history: Patient seen and evaluated medical records reviewed Remains nothing by mouth with NG tube placement, labs revealed multiple endocrine abnormalities Patient is confused, mildly agitation, not in acute distress Hospitalist Physical - Constitutional Vitals: Temp Pulse Resp BP Pulse Ox 99.3 F 102 H 20 173/84 98 08/11/16 12:36 08/11/16 12:36 08/11/16 12:36 08/11/16 12:36 08/11/16 12:36 General appearance: Present: no acute distress, obese, other (confused and agitated) - EENT Eyes: Present: PERRL, EOM intact - Neck Neck: Present: supple, normal ROM - Respiratory Respiratory effort: normal Respiratory: bilateral: diminished, negative: rales, rhonchi, wheezing - Cardiovascular Rhythm: regular Heart Sounds: Present: S1 & S2 (tachycardia) - Extremities Extremities: no ischemia, pulses intact, pulses symmetrical - Abdominal General gastrointestinal: soft, tender (vague tenderness ), distended (mild), absent bowel sounds - Integumentary Integumentary: Present: clear, warm - Psychiatric Psychiatric: other (noncommunicative agitated) - Neurologic Neurologic: moves all extremities Results - Labs CBC & Chem 7: 08/10/16 07:07 08/11/16 06:38 Labs: Laboratory Last Values WBC 10.4 K/mm3 (4.5-11.0) 08/10/16 07:07 RBC 4.63 M/mm3 (3.65-5.03) 08/10/16 07:07 Hgb 13.6 gm/dl (10.1-14.3) 08/10/16 07:07 Hct 40.8 % (30.3-42.9) 08/10/16 07:07 MCV 88 fl (79-97) 08/10/16 07:07 MCH 29 pg (28-32) 08/10/16 07:07 MCHC 33 % (30-34) 08/10/16 07:07 RDW 13.7 % (13.2-15.2) 08/10/16 07:07 Plt Count 210 K/mm3 (140-440) 08/10/16 07:07 Lymph % (Auto) 13.6 % (13.4-35.0) 08/10/16 07:07 [place] % (Auto) 8.6 % (0.0-7.3) H 08/10/16 07:07 Eos % (Auto) 0.1 % (0.0-4.3) 08/10/16 07:07 Baso % (Auto) 0.2 % (0.0-1.8) 08/10/16 07:07 Lymph # 1.4 K/mm3 (1.2-5.4) 08/10/16 07:07 [place] # 0.9 K/mm3 (0.0-0.8) H 08/10/16 07:07 Eos # 0.0 K/mm3 (0.0-0.4) 08/10/16 07:07 Baso # 0.0 K/mm3 (0.0-0.1) 08/10/16 07:07 Add Manual Diff Complete 08/09/16 04:57 Total Counted 100 08/09/16 04:57 Seg Neutrophils % 77.5 % (40.0-70.0) H 08/10/16 07:07 Seg Neuts % (Manual) 9.0 % (40.0-70.0) L 08/09/16 04:57 Band Neutrophils % 77.0 % 08/09/16 04:57 Lymphocytes % (Manual) 5.0 % (13.4-35.0) L 08/09/16 04:57 Reactive Lymphs % (Man) 0 % 08/09/16 04:57 Monocytes % (Manual) 9.0 % (0.0-7.3) H 08/09/16 04:57 Eosinophils % (Manual) 0 % (0.0-4.3) 08/09/16 04:57 Basophils % (Manual) 0 % (0.0-1.8) 08/09/16 04:57 Metamyelocytes % 0 % 08/09/16 04:57 Myelocytes % 0 % 08/09/16 04:57 Promyelocytes % 0 % 08/09/16 04:57 Blast Cells % 0 % 08/09/16 04:57 Nucleated RBC % Not Reportable 08/09/16 04:57 Seg Neutrophils # 8.1 K/mm3 (1.8-7.7) H 08/10/16 07:07 Seg Neutrophils # Man 0.6 K/mm3 (1.8-7.7) L 08/09/16 04:57 Band Neutrophils # 4.9 K/mm3 08/09/16 04:57 Lymphocytes # (Manual) 0.3 K/mm3 (1.2-5.4) L 08/09/16 04:57 Abs React Lymphs (Man) 0.0 K/mm3 08/09/16 04:57 Monocytes # (Manual) 0.6 K/mm3 (0.0-0.8) 08/09/16 04:57 Eosinophils # (Manual) 0.0 K/mm3 (0.0-0.4) 08/09/16 04:57 Basophils # (Manual) 0.0 K/mm3 (0.0-0.1) 08/09/16 04:57 Metamyelocytes # 0.0 K/mm3 08/09/16 04:57 Myelocytes # 0.0 K/mm3 08/09/16 04:57 Promyelocytes # 0.0 K/mm3 08/09/16 04:57 Blast Cells # 0.0 K/mm3 08/09/16 04:57 WBC Morphology Not Reportable 08/09/16 04:57 Hypersegmented Neuts Not Reportable 08/09/16 04:57 Hyposegmented Neuts Not Reportable 08/09/16 04:57 Hypogranular Neuts Not Reportable 08/09/16 04:57 Smudge Cells Not Reportable 08/09/16 04:57 Toxic Granulation Not Reportable 08/09/16 04:57 Toxic Vacuolation Not Reportable 08/09/16 04:57 Dohle Bodies Not Reportable 08/09/16 04:57 Pelger-Huet Anomaly Not Reportable 08/09/16 04:57 Ritesh Rods Not Reportable 08/09/16 04:57 Platelet Estimate Appears normal 08/09/16 04:57 Clumped Platelets Not Reportable 08/09/16 04:57 Plt Clumps, EDTA Not Reportable 08/09/16 04:57 Large Platelets Not Reportable 08/09/16 04:57 Giant Platelets Not Reportable 08/09/16 04:57 Platelet Satelliting Not Reportable 08/09/16 04:57 Plt Morphology Comment Not Reportable 08/09/16 04:57 RBC Morphology Normal 08/09/16 04:57 Dimorphic RBCs Not Reportable 08/09/16 04:57 Polychromasia Not Reportable 08/09/16 04:57 Hypochromasia Not Reportable 08/09/16 04:57 Poikilocytosis Not Reportable 08/09/16 04:57 Anisocytosis Not Reportable 08/09/16 04:57 Microcytosis Not Reportable 08/09/16 04:57 Macrocytosis Not Reportable 08/09/16 04:57 Spherocytes Not Reportable 08/09/16 04:57 Pappenheimer Bodies Not Reportable 08/09/16 04:57 Sickle Cells Not Reportable 08/09/16 04:57 Target Cells Not Reportable 08/09/16 04:57 Tear Drop Cells Not Reportable 08/09/16 04:57 Ovalocytes Not Reportable 08/09/16 04:57 Helmet Cells Not Reportable 08/09/16 04:57 [place] Bodies Not Reportable 08/09/16 04:57 [place] Rings Not Reportable 08/09/16 04:57 [place] Cells Not Reportable 08/09/16 04:57 Bite Cells Not Reportable 08/09/16 04:57 Crenated Cell Not Reportable 08/09/16 04:57 Elliptocytes Not Reportable 08/09/16 04:57 Acanthocytes (Spur) Not Reportable 08/09/16 04:57 Rouleaux Not Reportable 08/09/16 04:57 Hemoglobin C Crystals Not Reportable 08/09/16 04:57 Schistocytes Not Reportable 08/09/16 04:57 Malaria parasites Not Reportable 08/09/16 04:57 [place] Bodies Not Reportable 08/09/16 04:57 Hem Pathologist Commnt No 08/09/16 04:57 VBG pH 7.375 (7.320-7.420) 08/05/16 22:59 Sodium 152 mmol/L (137-145) H 08/11/16 06:38 Potassium 3.0 mmol/L (3.6-5.0) L 08/11/16 06:38 Chloride 115.6 mmol/L (98-107) H 08/11/16 06:38 Carbon Dioxide 18 mmol/L (22-30) L 08/11/16 06:38 Anion Gap 21 mmol/L 08/11/16 06:38 BUN 16 mg/dL (7-17) 08/11/16 06:38 Creatinine 0.6 mg/dL (0.7-1.2) L 08/11/16 06:38 Estimated GFR > 60 ml/min 08/11/16 06:38 BUN/Creatinine Ratio 26.66 % 08/11/16 06:38 Glucose 214 mg/dL (65-100) H 08/11/16 06:38 POC Glucose 376 (70-105) H 08/07/16 21:52 Lactic Acid 2.4 mmol/L (0.7-2.0) H* 08/05/16 22:59 Calcium 8.6 mg/dL (8.4-10.2) 08/11/16 06:38 Phosphorus 0.8 mg/dL (2.5-4.5) L* 08/11/16 06:38 Magnesium 1.9 mg/dL (1.7-2.3) 08/11/16 06:38 Total Bilirubin 1.0 mg/dL (0.1-1.2) 08/10/16 07:07 AST 29 units/L (5-40) 08/10/16 07:07 ALT 27 units/L (7-56) 08/10/16 07:07 Alkaline Phosphatase 109 units/L (35-129) 08/10/16 07:07 Total Protein 6.6 g/dL (6.3-8.2) 08/10/16 07:07 Albumin 3.0 g/dL (3.9-5) L 08/10/16 07:07 Albumin/Globulin Ratio 0.8 % 08/10/16 07:07 Lipase 13 units/L (13-60) 08/05/16 22:59 Urine Color Straw (Yellow) 08/05/16 22:35 Urine Turbidity Clear (Clear) 08/05/16 22:35 Urine pH 8.0 (5.0-7.0) H 08/05/16 22:35 Ur Specific [place] 1.022 (1.003-1.030) 08/05/16 22:35 Urine Protein <15 mg/dl mg/dL (Negative) 08/05/16 22:35 Urine Glucose (UA) >=500 mg/dL (Negative) 08/05/16 22:35 Urine Ketones 20 mg/dL (Negative) 08/05/16 22:35 Urine Blood Neg (Negative) 08/05/16 22:35 Urine Nitrite Neg (Negative) 08/05/16 22:35 Urine Bilirubin Neg (Negative) 08/05/16 22:35 Urine Urobilinogen < 2.0 mg/dL (<2.0) 08/05/16 22:35 Ur Leukocyte Esterase Neg (Negative) 08/05/16 22:35 Urine WBC (Auto) 2.0 /HPF (0.0-6.0) 08/05/16 22:35 Urine RBC (Auto) 3.0 /HPF (0.0-6.0) 08/05/16 22:35 U Epithel Cells (Auto) < 1.0 /HPF (0-13.0) 08/05/16 22:35 Blood Type A POSITIVE 08/07/16 11:50 Antibody Screen Negative 08/07/16 11:50
[2016-08-11] MEDS: KPHOS 40 MMOL in NACL 0.9% 500 ML 500 ML IV SCH ×2 (13:27→17:38)
[2016-08-11] MEDS: LEVEMIR SUB-Q SCH (22:30)
[2016-08-12 08:37] LABS: Anion Gap 19 mmol/L; Basophils % (Auto) 0.3 % (0.0-1.8); Blood Urea Nitrogen 14 mg/dL (7-17); Calcium 8.2 mg/dL (8.4-10.2); Carbon Dioxide 21 mmol/L (22-30); Chloride 120.4 mmol/L (98-107); Eosinophils % (Auto) 0.3 % (0.0-4.3); Glucose 226 mg/dL (65-100); Hematocrit 37.8 % (30.3-42.9); Hemoglobin 12.3 gm/dl (10.1-14.3); Mean Corpuscular HGB Conc 33 % (30-34); Mean Corpuscular Hemoglobin 29 pg (28-32); Mean Corpuscular Volume 89 fl (79-97); Phosphorous 2.2 mg/dL (2.5-4.5); Platelet Count 178 K/mm3 (140-440); Potassium 3.2 mmol/L (3.6-5.0); Red Blood Count 4.24 M/mm3 (3.65-5.03); Sodium 157 mmol/L (137-145); White Blood Count 12.1 K/mm3 (4.5-11.0)
[2016-08-12] MEDS: NOVOLOG SUB-Q SCH ×3 (09:12→18:08)
[2016-08-12] MEDS ORDERED: KPHOS 40 MMOL in NACL 0.9% 500 ML 500 ML IV ONE (09:28)
[2016-08-12] MEDS: MORPHINE IV PRN ×2 (09:31→21:48)
[2016-08-12] MEDS: LOVENOX SUB-Q SCH (09:32)
[2016-08-12] MEDS: PEPCID IV SCH ×2 (09:33→21:47)
[2016-08-12] MEDS: ZOSYN/NS 4.5GM/100ML 4.5 GM/100 ML VIAL IV SCH ×2 (10:15→10:30)
--- NOTE | 2016-08-12 10:24 | Progress Note ---
Assessment and Plan IMP: [id number] post op ileus. Hypernatremia and hyperchloremia. Hyperosmolar dehydration. PLAN: D/C NG tube. Clear liquid diet. Change IVs to D5W. Subjective Date of service: 08/12/16 Patient Reports: Positive: no new complaints, pain is less Objective Vital Signs - 12hr 08/11/16 08/12/16 08/12/16 23:43 05:00 08:43 Temperature 98.6 F 98.9 F 98.2 F Pulse Rate [ 97 H 103 H 82 Left] Respiratory 18 20 20 Rate Blood Pressure 146/88 182/93 136/80 [Left Arm] O2 Sat by Pulse 100 99 100 Oximetry - Abdomen soft, not tender, bowel sounds normal, wound (dry, clear and healing well. Staple renae intact.) - Labs 08/12/16 07:16 08/12/16 07:16 Diabetes panel 08/12/16 Range/Units 07:16 Sodium 157 H (137-145) mmol/L Potassium 3.2 L (3.6-5.0) mmol/L Chloride 120.4 H (98-107) mmol/L Carbon Dioxide 21 L (22-30) mmol/L BUN 14 (7-17) mg/dL Creatinine 0.5 L (0.7-1.2) mg/dL Glucose 226 H (65-100) mg/dL Calcium 8.2 L (8.4-10.2) mg/dL Calcium panel 08/12/16 Range/Units 07:16 Calcium 8.2 L (8.4-10.2) mg/dL Phosphorus 2.2 L D (2.5-4.5) mg/dL Pituitary panel 08/12/16 Range/Units 07:16 Sodium 157 H (137-145) mmol/L Potassium 3.2 L (3.6-5.0) mmol/L Chloride 120.4 H (98-107) mmol/L Carbon Dioxide 21 L (22-30) mmol/L BUN 14 (7-17) mg/dL Creatinine 0.5 L (0.7-1.2) mg/dL Glucose 226 H (65-100) mg/dL Calcium 8.2 L (8.4-10.2) mg/dL Adrenal panel 08/12/16 Range/Units 07:16 Sodium 157 H (137-145) mmol/L Potassium 3.2 L (3.6-5.0) mmol/L Chloride 120.4 H (98-107) mmol/L Carbon Dioxide 21 L (22-30) mmol/L BUN 14 (7-17) mg/dL Creatinine 0.5 L (0.7-1.2) mg/dL Glucose 226 H (65-100) mg/dL Calcium 8.2 L (8.4-10.2) mg/dL
[2016-08-12] MEDS: KCL 10MEQ/100ML 10 MEQ/100 ML BAG IV SCH ×4 (11:20→18:05)
[2016-08-12] MEDS: D5W 1,000 ML IV SCH ×2 (11:25→23:55)
--- NOTE | 2016-08-12 16:45 | Progress Note ---
Assessment and Plan Assessment and plan: --Small bowel obstruction status post surgery Surgery discontinued NG tube, started clear liquids Advance as tolerated Continue postoperative care --Severe hypophosphatemia IV K-Phos 40 mEq 1 closely monitor --Hypokalemia replace per protocol and monitor levels --Hypernatremia Change IV fluids to D5 half normal, closely monitor electrolytes Free water administration oral status tolerated --Metabolic acidosis Aggressive IV hydration, significant improvement --[id number] protein calorie malnutrition Supportive care and nutrition supplement when patient is able to take by mouth Consider TPN --Metabolic encephalopathy Secondary to underlying disease process, and metabolic abnormalities Supportive care --Type 2 diabetes mellitus Uncontrolled, Accu-Chek sliding scale coverage and ADA diet Increase insulin dose to 15 units Lantus --DVT prophylaxis with Lovenox and SCDs --CODE STATUS, full code Physical therapy occupational therapy DC planning possible case management History Interval history: Patient seen and evaluated medical records reviewed No new events reported by the nursing staff Patient feels slightly better more alert and responds appropriately NG tube was discontinued by surgery, clear liquid diet as tolerated Not in acute distress Hospitalist Physical - Constitutional Vitals: Temp Pulse Resp BP Pulse Ox 98.2 F 82 20 136/80 100 08/12/16 08:43 08/12/16 08:43 08/12/16 08:43 08/12/16 08:43 08/12/16 08:43 General appearance: Present: no acute distress, well-nourished - EENT Eyes: Present: PERRL, EOM intact - Neck Neck: Present: supple, normal ROM - Respiratory Respiratory effort: normal Respiratory: bilateral: diminished, negative: rales, rhonchi, wheezing - Cardiovascular Rhythm: regular Heart Sounds: Present: S1 & S2 - Extremities Extremities: no ischemia, pulses intact, pulses symmetrical Peripheral Pulses: within normal limits - Abdominal General gastrointestinal: soft, non-tender, non-distended, normal bowel sounds, hypoactive bowel sounds - Integumentary Integumentary: Present: clear, warm - Psychiatric Psychiatric: agitated, other (confused at times) - Neurologic Neurologic: moves all extremities Results - Labs CBC & Chem 7: 08/12/16 07:16 08/12/16 07:16 Labs: Laboratory Last Values WBC 12.1 K/mm3 (4.5-11.0) H 08/12/16 07:16 RBC 4.24 M/mm3 (3.65-5.03) 08/12/16 07:16 Hgb 12.3 gm/dl (10.1-14.3) 08/12/16 07:16 Hct 37.8 % (30.3-42.9) 08/12/16 07:16 MCV 89 fl (79-97) 08/12/16 07:16 MCH 29 pg (28-32) 08/12/16 07:16 MCHC 33 % (30-34) 08/12/16 07:16 RDW 14.0 % (13.2-15.2) 08/12/16 07:16 Plt Count 178 K/mm3 (140-440) 08/12/16 07:16 Lymph % (Auto) 13.8 % (13.4-35.0) 08/12/16 07:16 [place] % (Auto) 14.0 % (0.0-7.3) H 08/12/16 07:16 Eos % (Auto) 0.3 % (0.0-4.3) 08/12/16 07:16 Baso % (Auto) 0.3 % (0.0-1.8) 08/12/16 07:16 Lymph # 1.7 K/mm3 (1.2-5.4) 08/12/16 07:16 [place] # 1.7 K/mm3 (0.0-0.8) H 08/12/16 07:16 Eos # 0.0 K/mm3 (0.0-0.4) 08/12/16 07:16 Baso # 0.0 K/mm3 (0.0-0.1) 08/12/16 07:16 Add Manual Diff Complete 08/09/16 04:57 Total Counted 100 08/09/16 04:57 Seg Neutrophils % 71.6 % (40.0-70.0) H 08/12/16 07:16 Seg Neuts % (Manual) 9.0 % (40.0-70.0) L 08/09/16 04:57 Band Neutrophils % 77.0 % 08/09/16 04:57 Lymphocytes % (Manual) 5.0 % (13.4-35.0) L 08/09/16 04:57 Reactive Lymphs % (Man) 0 % 08/09/16 04:57 Monocytes % (Manual) 9.0 % (0.0-7.3) H 08/09/16 04:57 Eosinophils % (Manual) 0 % (0.0-4.3) 08/09/16 04:57 Basophils % (Manual) 0 % (0.0-1.8) 08/09/16 04:57 Metamyelocytes % 0 % 08/09/16 04:57 Myelocytes % 0 % 08/09/16 04:57 Promyelocytes % 0 % 08/09/16 04:57 Blast Cells % 0 % 08/09/16 04:57 Nucleated RBC % Not Reportable 08/09/16 04:57 Seg Neutrophils # 8.6 K/mm3 (1.8-7.7) H 08/12/16 07:16 Seg Neutrophils # Man 0.6 K/mm3 (1.8-7.7) L 08/09/16 04:57 Band Neutrophils # 4.9 K/mm3 08/09/16 04:57 Lymphocytes # (Manual) 0.3 K/mm3 (1.2-5.4) L 08/09/16 04:57 Abs React Lymphs (Man) 0.0 K/mm3 08/09/16 04:57 Monocytes # (Manual) 0.6 K/mm3 (0.0-0.8) 08/09/16 04:57 Eosinophils # (Manual) 0.0 K/mm3 (0.0-0.4) 08/09/16 04:57 Basophils # (Manual) 0.0 K/mm3 (0.0-0.1) 08/09/16 04:57 Metamyelocytes # 0.0 K/mm3 08/09/16 04:57 Myelocytes # 0.0 K/mm3 08/09/16 04:57 Promyelocytes # 0.0 K/mm3 08/09/16 04:57 Blast Cells # 0.0 K/mm3 08/09/16 04:57 WBC Morphology Not Reportable 08/09/16 04:57 Hypersegmented Neuts Not Reportable 08/09/16 04:57 Hyposegmented Neuts Not Reportable 08/09/16 04:57 Hypogranular Neuts Not Reportable 08/09/16 04:57 Smudge Cells Not Reportable 08/09/16 04:57 Toxic Granulation Not Reportable 08/09/16 04:57 Toxic Vacuolation Not Reportable 08/09/16 04:57 Dohle Bodies Not Reportable 08/09/16 04:57 Pelger-Huet Anomaly Not Reportable 08/09/16 04:57 Ritesh Rods Not Reportable 08/09/16 04:57 Platelet Estimate Appears normal 08/09/16 04:57 Clumped Platelets Not Reportable 08/09/16 04:57 Plt Clumps, EDTA Not Reportable 08/09/16 04:57 Large Platelets Not Reportable 08/09/16 04:57 Giant Platelets Not Reportable 08/09/16 04:57 Platelet Satelliting Not Reportable 08/09/16 04:57 Plt Morphology Comment Not Reportable 08/09/16 04:57 RBC Morphology Normal 08/09/16 04:57 Dimorphic RBCs Not Reportable 08/09/16 04:57 Polychromasia Not Reportable 08/09/16 04:57 Hypochromasia Not Reportable 08/09/16 04:57 Poikilocytosis Not Reportable 08/09/16 04:57 Anisocytosis Not Reportable 08/09/16 04:57 Microcytosis Not Reportable 08/09/16 04:57 Macrocytosis Not Reportable 08/09/16 04:57 Spherocytes Not Reportable 08/09/16 04:57 Pappenheimer Bodies Not Reportable 08/09/16 04:57 Sickle Cells Not Reportable 08/09/16 04:57 Target Cells Not Reportable 08/09/16 04:57 Tear Drop Cells Not Reportable 08/09/16 04:57 Ovalocytes Not Reportable 08/09/16 04:57 Helmet Cells Not Reportable 08/09/16 04:57 Angelo-[place] Bodies Not Reportable 08/09/16 04:57 [place] Rings Not Reportable 08/09/16 04:57 [place] Cells Not Reportable 08/09/16 04:57 Bite Cells Not Reportable 08/09/16 04:57 Crenated Cell Not Reportable 08/09/16 04:57 Elliptocytes Not Reportable 08/09/16 04:57 Acanthocytes (Spur) Not Reportable 08/09/16 04:57 Rouleaux Not Reportable 08/09/16 04:57 Hemoglobin C Crystals Not Reportable 08/09/16 04:57 Schistocytes Not Reportable 08/09/16 04:57 Malaria parasites Not Reportable 08/09/16 04:57 [place] Bodies Not Reportable 08/09/16 04:57 Hem Pathologist Commnt No 08/09/16 04:57 VBG pH 7.375 (7.320-7.420) 08/05/16 22:59 Sodium 157 mmol/L (137-145) H 08/12/16 07:16 Potassium 3.2 mmol/L (3.6-5.0) L 08/12/16 07:16 Chloride 120.4 mmol/L (98-107) H 08/12/16 07:16 Carbon Dioxide 21 mmol/L (22-30) L 08/12/16 07:16 Anion Gap 19 mmol/L 08/12/16 07:16 BUN 14 mg/dL (7-17) 08/12/16 07:16 Creatinine 0.5 mg/dL (0.7-1.2) L 08/12/16 07:16 Estimated GFR > 60 ml/min 08/12/16 07:16 BUN/Creatinine Ratio 28.00 % 08/12/16 07:16 Glucose 226 mg/dL (65-100) H 08/12/16 07:16 POC Glucose 231 (70-105) H 08/12/16 11:37 Lactic Acid 2.4 mmol/L (0.7-2.0) H* 08/05/16 22:59 Calcium 8.2 mg/dL (8.4-10.2) L 08/12/16 07:16 Phosphorus 2.2 mg/dL (2.5-4.5) L D 08/12/16 07:16 Magnesium 2.0 mg/dL (1.7-2.3) 08/12/16 07:16 Total Bilirubin 1.0 mg/dL (0.1-1.2) 08/10/16 07:07 AST 29 units/L (5-40) 08/10/16 07:07 ALT 27 units/L (7-56) 08/10/16 07:07 Alkaline Phosphatase 109 units/L (35-129) 08/10/16 07:07 Total Protein 6.6 g/dL (6.3-8.2) 08/10/16 07:07 Albumin 3.0 g/dL (3.9-5) L 08/10/16 07:07 Albumin/Globulin Ratio 0.8 % 08/10/16 07:07 Lipase 13 units/L (13-60) 08/05/16 22:59 Urine Color Straw (Yellow) 08/05/16 22:35 Urine Turbidity Clear (Clear) 08/05/16 22:35 Urine pH 8.0 (5.0-7.0) H 08/05/16 22:35 Ur Specific [place] 1.022 (1.003-1.030) 08/05/16 22:35 Urine Protein <15 mg/dl mg/dL (Negative) 08/05/16 22:35 Urine Glucose (UA) >=500 mg/dL (Negative) 08/05/16 22:35 Urine Ketones 20 mg/dL (Negative) 08/05/16 22:35 Urine Blood Neg (Negative) 08/05/16 22:35 Urine Nitrite Neg (Negative) 08/05/16 22:35 Urine Bilirubin Neg (Negative) 08/05/16 22:35 Urine Urobilinogen < 2.0 mg/dL (<2.0) 08/05/16 22:35 Ur Leukocyte Esterase Neg (Negative) 08/05/16 22:35 Urine WBC (Auto) 2.0 /HPF (0.0-6.0) 08/05/16 22:35 Urine RBC (Auto) 3.0 /HPF (0.0-6.0) 08/05/16 22:35 U Epithel Cells (Auto) < 1.0 /HPF (0-13.0) 08/05/16 22:35 Blood Type A POSITIVE 08/07/16 11:50 Antibody Screen Negative 08/07/16 11:50
[2016-08-12] MEDS: ATIVAN IV PRN (21:47)
[2016-08-13] MEDS ORDERED: LEVEMIR SUB-Q STA (01:30)
[2016-08-13] MEDS ORDERED: NOVOLOG SUB-Q ONE (01:33)
[2016-08-13] MEDS: NOVOLOG SUB-Q SCH ×6 (01:40→22:14)
[2016-08-13] MEDS: LEVEMIR SUB-Q SCH ×2 (01:42→22:15)
[2016-08-13] MEDS: ZOSYN/NS 4.5GM/100ML 4.5 GM/100 ML VIAL IV SCH ×4 (02:31→18:39)
[2016-08-13 07:09] LABS: Hematocrit 36.6 % (30.3-42.9); Mean Corpuscular HGB Conc 33 % (30-34); Mean Corpuscular Hemoglobin 30 pg (28-32); Mean Corpuscular Volume 90 fl (79-97); Platelet Count 190 K/mm3 (140-440); Red Blood Count 4.07 M/mm3 (3.65-5.03); Red Cell Distribution Width 14.2 % (13.2-15.2); White Blood Count 9.2 K/mm3 (4.5-11.0)
[2016-08-13 07:24] LABS: Anion Gap 15 mmol/L; BUN/Creatinine Ratio 16.66; Blood Urea Nitrogen 10 mg/dL (7-17); Calcium 8.2 mg/dL (8.4-10.2); Carbon Dioxide 23 mmol/L (22-30); Chloride 109.6 mmol/L (98-107); Glucose 372 mg/dL (65-100); Phosphorous 2.9 mg/dL (2.5-4.5); Potassium 3.5 mmol/L (3.6-5.0); Sodium 144 mmol/L (137-145)
[2016-08-13] MEDS ORDERED: K-DUR PO ONE (08:32)
[2016-08-13 08:47] LABS: Basophils % (Manual) 0 % (0.0-1.8); Blastocytes % (Manual) 0 %; Diff Status Complete; Platelet Estimate Consistent w Auto
[2016-08-13] MEDS: NACL 0.9% 1000 ML 1,000 ML IV SCH (10:50)
[2016-08-13] MEDS: PEPCID IV SCH (10:50)
[2016-08-13] MEDS: LOVENOX SUB-Q SCH (10:50)
--- NOTE | 2016-08-13 12:00 | Progress Note ---
Assessment and Plan Assessment and plan: --Small bowel obstruction status post surgery Surgery discontinued NG tube, started clear liquids Advance as tolerated Continue postoperative care --Severe hypophosphatemia /Hypokalemia/hypernatremia Corrected --Metabolic acidosis Aggressive IV hydration, significant improvement --Myxg-ek-uskqzozs protein calorie malnutrition Supportive care and nutrition supplement when patient is able to take by mouth Consider TPN --Metabolic encephalopathy Secondary to underlying disease process, and metabolic abnormalities Supportive care --Type 2 diabetes mellitus Uncontrolled, Accu-Chek sliding scale coverage and ADA diet Increase insulin dose to 15 units Lantus --DVT prophylaxis with Lovenox and SCDs --CODE STATUS, full code Physical therapy occupational therapy DC planning possible case management History Interval history: Seen and evaluated medical records reviewed Patient is more alert and wants restraints off Tolerating liquid diet responding to simple questions not in acute distress Hospitalist Physical - Constitutional Vitals: Temp Pulse Resp BP Pulse Ox 97.8 F 90 18 137/92 98 08/13/16 04:50 08/13/16 04:50 08/13/16 04:50 08/13/16 04:50 08/13/16 04:50 General appearance: Present: no acute distress, well-nourished, other (confused and agitated) - EENT Eyes: Present: PERRL, EOM intact - Neck Neck: Present: supple, normal ROM - Respiratory Respiratory effort: normal Respiratory: bilateral: diminished, negative: rales, rhonchi, wheezing - Cardiovascular Rhythm: regular Heart Sounds: Present: S1 & S2 - Extremities Extremities: no ischemia, pulses intact, pulses symmetrical Peripheral Pulses: within normal limits - Integumentary Integumentary: Present: clear, warm - Psychiatric Psychiatric: appropriate mood/affect, cooperative - Neurologic Neurologic: CNII-XII intact, moves all extremities Results - Labs CBC & Chem 7: 08/13/16 06:11 08/13/16 06:11 Labs: Laboratory Last Values WBC 9.2 K/mm3 (4.5-11.0) 08/13/16 06:11 RBC 4.07 M/mm3 (3.65-5.03) 08/13/16 06:11 Hgb 12.0 gm/dl (10.1-14.3) 08/13/16 06:11 Hct 36.6 % (30.3-42.9) 08/13/16 06:11 MCV 90 fl (79-97) 08/13/16 06:11 MCH 30 pg (28-32) 08/13/16 06:11 MCHC 33 % (30-34) 08/13/16 06:11 RDW 14.2 % (13.2-15.2) 08/13/16 06:11 Plt Count 190 K/mm3 (140-440) 08/13/16 06:11 Lymph % (Auto) 13.8 % (13.4-35.0) 08/12/16 07:16 [place] % (Auto) 14.0 % (0.0-7.3) H 08/12/16 07:16 Eos % (Auto) 0.3 % (0.0-4.3) 08/12/16 07:16 Baso % (Auto) 0.3 % (0.0-1.8) 08/12/16 07:16 Lymph # 1.7 K/mm3 (1.2-5.4) 08/12/16 07:16 [place] # 1.7 K/mm3 (0.0-0.8) H 08/12/16 07:16 Eos # 0.0 K/mm3 (0.0-0.4) 08/12/16 07:16 Baso # 0.0 K/mm3 (0.0-0.1) 08/12/16 07:16 Add Manual Diff Complete 08/13/16 06:11 Total Counted 100 08/13/16 06:11 Seg Neutrophils % 71.6 % (40.0-70.0) H 08/12/16 07:16 Seg Neuts % (Manual) 68.0 % (40.0-70.0) 08/13/16 06:11 Band Neutrophils % 0 % 08/13/16 06:11 Lymphocytes % (Manual) 25.0 % (13.4-35.0) 08/13/16 06:11 Reactive Lymphs % (Man) 0 % 08/13/16 06:11 Monocytes % (Manual) 5.0 % (0.0-7.3) 08/13/16 06:11 Eosinophils % (Manual) 2.0 % (0.0-4.3) 08/13/16 06:11 Basophils % (Manual) 0 % (0.0-1.8) 08/13/16 06:11 Metamyelocytes % 0 % 08/13/16 06:11 Myelocytes % 0 % 08/13/16 06:11 Promyelocytes % 0 % 08/13/16 06:11 Blast Cells % 0 % 08/13/16 06:11 Nucleated RBC % 6.0 % (0.0-0.9) H 08/13/16 06:11 Seg Neutrophils # 8.6 K/mm3 (1.8-7.7) H 08/12/16 07:16 Seg Neutrophils # Man 6.3 K/mm3 (1.8-7.7) 08/13/16 06:11 Band Neutrophils # 0.0 K/mm3 08/13/16 06:11 Lymphocytes # (Manual) 2.3 K/mm3 (1.2-5.4) 08/13/16 06:11 Abs React Lymphs (Man) 0.0 K/mm3 08/13/16 06:11 Monocytes # (Manual) 0.5 K/mm3 (0.0-0.8) 08/13/16 06:11 Eosinophils # (Manual) 0.2 K/mm3 (0.0-0.4) 08/13/16 06:11 Basophils # (Manual) 0.0 K/mm3 (0.0-0.1) 08/13/16 06:11 Metamyelocytes # 0.0 K/mm3 08/13/16 06:11 Myelocytes # 0.0 K/mm3 08/13/16 06:11 Promyelocytes # 0.0 K/mm3 08/13/16 06:11 Blast Cells # 0.0 K/mm3 08/13/16 06:11 WBC Morphology Not Reportable 08/13/16 06:11 Hypersegmented Neuts Not Reportable 08/13/16 06:11 Hyposegmented Neuts Not Reportable 08/13/16 06:11 Hypogranular Neuts Not Reportable 08/13/16 06:11 Smudge Cells Not Reportable 08/13/16 06:11 Toxic Granulation Not Reportable 08/13/16 06:11 Toxic Vacuolation Not Reportable 08/13/16 06:11 Dohle Bodies Not Reportable 08/13/16 06:11 Pelger-Huet Anomaly Not Reportable 08/13/16 06:11 Ritesh Rods Not Reportable 08/13/16 06:11 Platelet Estimate Consistent w auto 08/13/16 06:11 Clumped Platelets Not Reportable 08/13/16 06:11 Plt Clumps, EDTA Not Reportable 08/13/16 06:11 Large Platelets Not Reportable 08/13/16 06:11 Giant Platelets Not Reportable 08/13/16 06:11 Platelet Satelliting Not Reportable 08/13/16 06:11 Plt Morphology Comment Not Reportable 08/13/16 06:11 RBC Morphology Not Reportable 08/13/16 06:11 Dimorphic RBCs Not Reportable 08/13/16 06:11 Polychromasia Not Reportable 08/13/16 06:11 Hypochromasia Not Reportable 08/13/16 06:11 Poikilocytosis Not Reportable 08/13/16 06:11 Anisocytosis Not Reportable 08/13/16 06:11 Microcytosis Not Reportable 08/13/16 06:11 Macrocytosis Not Reportable 08/13/16 06:11 Spherocytes Not Reportable 08/13/16 06:11 Pappenheimer Bodies Not Reportable 08/13/16 06:11 Sickle Cells Not Reportable 08/13/16 06:11 Target Cells Not Reportable 08/13/16 06:11 Tear Drop Cells Not Reportable 08/13/16 06:11 Ovalocytes Not Reportable 08/13/16 06:11 Helmet Cells Not Reportable 08/13/16 06:11 Angelo-[place] Bodies Not Reportable 08/13/16 06:11 [place] Rings Not Reportable 08/13/16 06:11 [place] Cells Not Reportable 08/13/16 06:11 Bite Cells Not Reportable 08/13/16 06:11 Crenated Cell Not Reportable 08/13/16 06:11 Elliptocytes Not Reportable 08/13/16 06:11 Acanthocytes (Spur) Not Reportable 08/13/16 06:11 Rouleaux Not Reportable 08/13/16 06:11 Hemoglobin C Crystals Not Reportable 08/13/16 06:11 Schistocytes Not Reportable 08/13/16 06:11 Malaria parasites Not Reportable 08/13/16 06:11 [place] Bodies Not Reportable 08/13/16 06:11 Hem Pathologist Commnt No 08/13/16 06:11 VBG pH 7.375 (7.320-7.420) 08/05/16 22:59 Sodium 144 mmol/L (137-145) D 08/13/16 06:11 Potassium 3.5 mmol/L (3.6-5.0) L 08/13/16 06:11 Chloride 109.6 mmol/L (98-107) H 08/13/16 06:11 Carbon Dioxide 23 mmol/L (22-30) 08/13/16 06:11 Anion Gap 15 mmol/L 08/13/16 06:11 BUN 10 mg/dL (7-17) 08/13/16 06:11 Creatinine 0.6 mg/dL (0.7-1.2) L 08/13/16 06:11 Estimated GFR > 60 ml/min 08/13/16 06:11 BUN/Creatinine Ratio 16.66 % 08/13/16 06:11 Glucose 372 mg/dL (65-100) H 08/13/16 06:11 POC Glucose 235 (70-105) H 08/13/16 06:34 Lactic Acid 2.4 mmol/L (0.7-2.0) H* 08/05/16 22:59 Calcium 8.2 mg/dL (8.4-10.2) L 08/13/16 06:11 Phosphorus 2.9 mg/dL (2.5-4.5) D 08/13/16 06:11 Magnesium 2.0 mg/dL (1.7-2.3) 08/13/16 06:11 Total Bilirubin 1.0 mg/dL (0.1-1.2) 08/10/16 07:07 AST 29 units/L (5-40) 08/10/16 07:07 ALT 27 units/L (7-56) 08/10/16 07:07 Alkaline Phosphatase 109 units/L (35-129) 08/10/16 07:07 Total Protein 6.6 g/dL (6.3-8.2) 08/10/16 07:07 Albumin 3.0 g/dL (3.9-5) L 08/10/16 07:07 Albumin/Globulin Ratio 0.8 % 08/10/16 07:07 Lipase 13 units/L (13-60) 08/05/16 22:59 Urine Color Straw (Yellow) 08/05/16 22:35 Urine Turbidity Clear (Clear) 08/05/16 22:35 Urine pH 8.0 (5.0-7.0) H 08/05/16 22:35 Ur Specific [place] 1.022 (1.003-1.030) 08/05/16 22:35 Urine Protein <15 mg/dl mg/dL (Negative) 08/05/16 22:35 Urine Glucose (UA) >=500 mg/dL (Negative) 08/05/16 22:35 Urine Ketones 20 mg/dL (Negative) 08/05/16 22:35 Urine Blood Neg (Negative) 08/05/16 22:35 Urine Nitrite Neg (Negative) 08/05/16 22:35 Urine Bilirubin Neg (Negative) 08/05/16 22:35 Urine Urobilinogen < 2.0 mg/dL (<2.0) 08/05/16 22:35 Ur Leukocyte Esterase Neg (Negative) 08/05/16 22:35 Urine WBC (Auto) 2.0 /HPF (0.0-6.0) 08/05/16 22:35 Urine RBC (Auto) 3.0 /HPF (0.0-6.0) 08/05/16 22:35 U Epithel Cells (Auto) < 1.0 /HPF (0-13.0) 08/05/16 22:35 Blood Type A POSITIVE 08/07/16 11:50 Antibody Screen Negative 08/07/16 11:50
--- NOTE | 2016-08-13 12:57 | Progress Note ---
Assessment and Plan IMP: Resolving ileus. Metablic encephalopathy. Resolving hypernatremia and hyperchloremia. PLAN: Full liquid diet. D/C [facility]. Subjective Date of service: 08/13/16 Patient Reports: Positive: no new complaints, tolerating liquids well, no bowel movement Objective Vital Signs - 12hr 08/13/16 04:50 Temperature 97.8 F Pulse Rate [ 90 Right Radial] Respiratory 18 Rate Blood Pressure 137/92 [Right Arm] O2 Sat by Pulse 98 Oximetry - Abdomen soft, bowel sounds normal, wound (dry, clear and healing well.) - Genitourinary other ([place] in place) - Neurologic confused - Labs 08/13/16 06:11 08/13/16 06:11 Diabetes panel 08/13/16 Range/Units 06:11 Sodium 144 D (137-145) mmol/L Potassium 3.5 L (3.6-5.0) mmol/L Chloride 109.6 H (98-107) mmol/L Carbon Dioxide 23 (22-30) mmol/L BUN 10 (7-17) mg/dL Creatinine 0.6 L (0.7-1.2) mg/dL Glucose 372 H (65-100) mg/dL Calcium 8.2 L (8.4-10.2) mg/dL Calcium panel 08/13/16 Range/Units 06:11 Calcium 8.2 L (8.4-10.2) mg/dL Phosphorus 2.9 D (2.5-4.5) mg/dL Pituitary panel 08/13/16 Range/Units 06:11 Sodium 144 D (137-145) mmol/L Potassium 3.5 L (3.6-5.0) mmol/L Chloride 109.6 H (98-107) mmol/L Carbon Dioxide 23 (22-30) mmol/L BUN 10 (7-17) mg/dL Creatinine 0.6 L (0.7-1.2) mg/dL Glucose 372 H (65-100) mg/dL Calcium 8.2 L (8.4-10.2) mg/dL Adrenal panel 08/13/16 Range/Units 06:11 Sodium 144 D (137-145) mmol/L Potassium 3.5 L (3.6-5.0) mmol/L Chloride 109.6 H (98-107) mmol/L Carbon Dioxide 23 (22-30) mmol/L BUN 10 (7-17) mg/dL Creatinine 0.6 L (0.7-1.2) mg/dL Glucose 372 H (65-100) mg/dL Calcium 8.2 L (8.4-10.2) mg/dL
[2016-08-13] MEDS: MORPHINE IV PRN (13:34)
[2016-08-13] MEDS: TYLENOL FEEDTUBE PRN (20:28)
[2016-08-13] MEDS: PEPCID PO SCH (22:15)
[2016-08-14] MEDS: ZOSYN/NS 4.5GM/100ML 4.5 GM/100 ML VIAL IV SCH ×3 (01:17→17:04)
[2016-08-14] MEDS: NACL 0.9% 1000 ML 1,000 ML IV SCH ×2 (01:23→12:20)
[2016-08-14] MEDS: TYLENOL FEEDTUBE PRN ×2 (06:46→19:14)
[2016-08-14 10:12] LABS: Hematocrit 36.1 % (30.3-42.9); Hemoglobin 11.9 gm/dl (10.1-14.3); Mean Corpuscular HGB Conc 33 % (30-34); Mean Corpuscular Hemoglobin 30 pg (28-32); Mean Corpuscular Volume 91 fl (79-97); Platelet Count 212 K/mm3 (140-440); Red Blood Count 3.98 M/mm3 (3.65-5.03); Red Cell Distribution Width 14.3 % (13.2-15.2); White Blood Count 9.9 K/mm3 (4.5-11.0)
[2016-08-14 10:25] LABS: Anion Gap 16 mmol/L; BUN/Creatinine Ratio 13.33; Blood Urea Nitrogen 8 mg/dL (7-17); Calcium 8.2 mg/dL (8.4-10.2); Carbon Dioxide 25 mmol/L (22-30); Chloride 110.5 mmol/L (98-107); Glucose 109 mg/dL (65-100); Magnesium 1.8 mg/dL (1.7-2.3); Phosphorous 2.9 mg/dL (2.5-4.5); Potassium 3.4 mmol/L (3.6-5.0); Sodium 148 mmol/L (137-145)
--- NOTE | 2016-08-14 10:47 | Progress Note ---
Assessment and Plan IMP: Resolved poat o ileuswith returned GI function. PLAN: GI soft diet. May go to rehab and/or longterm facility from my point of view. Subjective Date of service: 08/14/16 Patient Reports: Positive: no new complaints, tolerating liquids well, flatus, bowel movement Objective Vital Signs - 12hr 08/13/16 08/14/16 23:00 08:05 Temperature 97.9 F 98.3 F Pulse Rate [ 86 Left] Pulse Rate [ 93 H Right Radial] Respiratory 20 20 Rate Blood Pressure 139/78 153/78 [Left Arm] O2 Sat by Pulse 96 97 Oximetry - Abdomen soft, not tender, bowel sounds normal, wound (dry,clear and healing well.) - Labs 08/14/16 08:51 08/14/16 08:51 Diabetes panel 08/14/16 Range/Units 08:51 Sodium 148 H (137-145) mmol/L Potassium 3.4 L (3.6-5.0) mmol/L Chloride 110.5 H (98-107) mmol/L Carbon Dioxide 25 (22-30) mmol/L BUN 8 (7-17) mg/dL Creatinine 0.6 L (0.7-1.2) mg/dL Glucose 109 H (65-100) mg/dL Calcium 8.2 L (8.4-10.2) mg/dL Calcium panel 08/14/16 Range/Units 08:51 Calcium 8.2 L (8.4-10.2) mg/dL Phosphorus 2.9 (2.5-4.5) mg/dL Pituitary panel 08/14/16 Range/Units 08:51 Sodium 148 H (137-145) mmol/L Potassium 3.4 L (3.6-5.0) mmol/L Chloride 110.5 H (98-107) mmol/L Carbon Dioxide 25 (22-30) mmol/L BUN 8 (7-17) mg/dL Creatinine 0.6 L (0.7-1.2) mg/dL Glucose 109 H (65-100) mg/dL Calcium 8.2 L (8.4-10.2) mg/dL Adrenal panel 08/14/16 Range/Units 08:51 Sodium 148 H (137-145) mmol/L Potassium 3.4 L (3.6-5.0) mmol/L Chloride 110.5 H (98-107) mmol/L Carbon Dioxide 25 (22-30) mmol/L BUN 8 (7-17) mg/dL Creatinine 0.6 L (0.7-1.2) mg/dL Glucose 109 H (65-100) mg/dL Calcium 8.2 L (8.4-10.2) mg/dL
[2016-08-14] MEDS: LOVENOX SUB-Q SCH (10:59)
[2016-08-14] MEDS: PEPCID PO SCH ×2 (11:00→22:57)
[2016-08-14 11:16] LABS: Basophils % (Manual) 0 % (0.0-1.8); Blastocytes % (Manual) 0 %
[2016-08-14 11:17] LABS: Anisocytosis 1+; Polychromasia Few
[2016-08-14 11:18] LABS: Diff Status Complete; Large Platelets 1+; Platelet Estimate Cons
[2016-08-14] MEDS: NOVOLOG SUB-Q SCH ×4 (11:33→22:58)
--- NOTE | 2016-08-14 18:37 | Progress Note ---
Assessment and Plan Assessment and plan: --Metabolic encephalopathy Significantly improved, patient more alert and awake Secondary to underlying disease process, improved --Small bowel obstruction status post surgery Advance diet as tolerated, pain medications Surgery following --Type 2 diabetes mellitus Uncontrolled, Accu-Chek sliding scale coverage and ADA diet Increase insulin dose to 15 units Lantus --GERD Continue Protonix --DVT prophylaxis with Lovenox and SCDs --CODE STATUS, full code Onsets and recommendations noted and appreciated Physical therapy occupational therapy DC planning in 1-2 days post case management Plan of care discussed with the patient, sister from out of town who is a nurse Answered all their questions I spent 30 minutes coordinating this patient's care History Interval history: Patient seen and evaluated medical records reviewed Patient is more alert and awake, responding appropriately to simple questions, not agitated Offer restraints, family member at the bedside Tolerating full liquid diet Hospitalist Physical - Constitutional Vitals: Temp Pulse Resp BP Pulse Ox 98.2 F 81 16 123/62 99 08/14/16 15:45 08/14/16 15:45 08/14/16 15:45 08/14/16 15:45 08/14/16 15:45 General appearance: Present: no acute distress, well-nourished - EENT Eyes: Present: PERRL, EOM intact - Neck Neck: Present: supple, normal ROM - Respiratory Respiratory effort: normal Respiratory: bilateral: diminished, negative: rales, rhonchi, wheezing - Cardiovascular Rhythm: regular Heart Sounds: Present: S1 & S2 - Extremities Extremities: no ischemia, pulses intact, pulses symmetrical Peripheral Pulses: within normal limits - Abdominal General gastrointestinal: deferred, non-tender, non-distended, normal bowel sounds - Integumentary Integumentary: Present: clear, warm - Psychiatric Psychiatric: appropriate mood/affect, cooperative - Neurologic Neurologic: CNII-XII intact, moves all extremities Results - Labs CBC & Chem 7: 08/14/16 08:51 08/14/16 08:51 Labs: Laboratory Last Values WBC 9.9 K/mm3 (4.5-11.0) 08/14/16 08:51 RBC 3.98 M/mm3 (3.65-5.03) 08/14/16 08:51 Hgb 11.9 gm/dl (10.1-14.3) 08/14/16 08:51 Hct 36.1 % (30.3-42.9) 08/14/16 08:51 MCV 91 fl (79-97) 08/14/16 08:51 MCH 30 pg (28-32) 08/14/16 08:51 MCHC 33 % (30-34) 08/14/16 08:51 RDW 14.3 % (13.2-15.2) 08/14/16 08:51 Plt Count 212 K/mm3 (140-440) 08/14/16 08:51 Lymph % (Auto) 13.8 % (13.4-35.0) 08/12/16 07:16 Williamson % (Auto) 14.0 % (0.0-7.3) H 08/12/16 07:16 Eos % (Auto) 0.3 % (0.0-4.3) 08/12/16 07:16 Baso % (Auto) 0.3 % (0.0-1.8) 08/12/16 07:16 Lymph # 1.7 K/mm3 (1.2-5.4) 08/12/16 07:16 Williamson # 1.7 K/mm3 (0.0-0.8) H 08/12/16 07:16 Eos # 0.0 K/mm3 (0.0-0.4) 08/12/16 07:16 Baso # 0.0 K/mm3 (0.0-0.1) 08/12/16 07:16 Add Manual Diff Complete 08/14/16 08:51 Total Counted 100 08/14/16 08:51 Seg Neutrophils % 71.6 % (40.0-70.0) H 08/12/16 07:16 Seg Neuts % (Manual) 63.0 % (40.0-70.0) 08/14/16 08:51 Band Neutrophils % 2.0 % 08/14/16 08:51 Lymphocytes % (Manual) 22.0 % (13.4-35.0) 08/14/16 08:51 Reactive Lymphs % (Man) 0 % 08/14/16 08:51 Monocytes % (Manual) 9.0 % (0.0-7.3) H 08/14/16 08:51 Eosinophils % (Manual) 4.0 % (0.0-4.3) 08/14/16 08:51 Basophils % (Manual) 0 % (0.0-1.8) 08/14/16 08:51 Metamyelocytes % 0 % 08/14/16 08:51 Myelocytes % 0 % 08/14/16 08:51 Promyelocytes % 0 % 08/14/16 08:51 Blast Cells % 0 % 08/14/16 08:51 Nucleated RBC % Not Reportable 08/14/16 08:51 Seg Neutrophils # 8.6 K/mm3 (1.8-7.7) H 08/12/16 07:16 Seg Neutrophils # Man 6.2 K/mm3 (1.8-7.7) 08/14/16 08:51 Band Neutrophils # 0.2 K/mm3 08/14/16 08:51 Lymphocytes # (Manual) 2.2 K/mm3 (1.2-5.4) 08/14/16 08:51 Abs React Lymphs (Man) 0.0 K/mm3 08/14/16 08:51 Monocytes # (Manual) 0.9 K/mm3 (0.0-0.8) H 08/14/16 08:51 Eosinophils # (Manual) 0.4 K/mm3 (0.0-0.4) 08/14/16 08:51 Basophils # (Manual) 0.0 K/mm3 (0.0-0.1) 08/14/16 08:51 Metamyelocytes # 0.0 K/mm3 08/14/16 08:51 Myelocytes # 0.0 K/mm3 08/14/16 08:51 Promyelocytes # 0.0 K/mm3 08/14/16 08:51 Blast Cells # 0.0 K/mm3 08/14/16 08:51 WBC Morphology Not Reportable 08/14/16 08:51 Hypersegmented Neuts Not Reportable 08/14/16 08:51 Hyposegmented Neuts Not Reportable 08/14/16 08:51 Hypogranular Neuts Not Reportable 08/14/16 08:51 Smudge Cells Not Reportable 08/14/16 08:51 Toxic Granulation Not Reportable 08/14/16 08:51 Toxic Vacuolation Not Reportable 08/14/16 08:51 Dohle Bodies Not Reportable 08/14/16 08:51 Pelger-Huet Anomaly Not Reportable 08/14/16 08:51 Ritesh Rods Not Reportable 08/14/16 08:51 Platelet Estimate Cons 08/14/16 08:51 Clumped Platelets Not Reportable 08/14/16 08:51 Plt Clumps, EDTA Not Reportable 08/14/16 08:51 Large Platelets 1+ 08/14/16 08:51 Giant Platelets Not Reportable 08/14/16 08:51 Platelet Satelliting Not Reportable 08/14/16 08:51 Plt Morphology Comment Not Reportable 08/14/16 08:51 RBC Morphology Not Reportable 08/14/16 08:51 Dimorphic RBCs Not Reportable 08/14/16 08:51 Polychromasia Few 08/14/16 08:51 Hypochromasia Not Reportable 08/14/16 08:51 Poikilocytosis Not Reportable 08/14/16 08:51 Anisocytosis 1+ 08/14/16 08:51 Microcytosis Not Reportable 08/14/16 08:51 Macrocytosis Not Reportable 08/14/16 08:51 Spherocytes Not Reportable 08/14/16 08:51 Pappenheimer Bodies Not Reportable 08/14/16 08:51 Sickle Cells Not Reportable 08/14/16 08:51 Target Cells Not Reportable 08/14/16 08:51 Tear Drop Cells Not Reportable 08/14/16 08:51 Ovalocytes Not Reportable 08/14/16 08:51 Helmet Cells Not Reportable 08/14/16 08:51 [place] Bodies Not Reportable 08/14/16 08:51 [place] Rings Not Reportable 08/14/16 08:51 Lety Cells Not Reportable 08/14/16 08:51 Bite Cells Not Reportable 08/14/16 08:51 Crenated Cell Not Reportable 08/14/16 08:51 Elliptocytes Not Reportable 08/14/16 08:51 Acanthocytes (Spur) Not Reportable 08/14/16 08:51 Rouleaux Not Reportable 08/14/16 08:51 Hemoglobin C Crystals Not Reportable 08/14/16 08:51 Schistocytes Not Reportable 08/14/16 08:51 Malaria parasites Not Reportable 08/14/16 08:51 [place] Bodies Not Reportable 08/14/16 08:51 Hem Pathologist Commnt No 08/14/16 08:51 VBG pH 7.375 (7.320-7.420) 08/05/16 22:59 Sodium 148 mmol/L (137-145) H 08/14/16 08:51 Potassium 3.4 mmol/L (3.6-5.0) L 08/14/16 08:51 Chloride 110.5 mmol/L (98-107) H 08/14/16 08:51 Carbon Dioxide 25 mmol/L (22-30) 08/14/16 08:51 Anion Gap 16 mmol/L 08/14/16 08:51 BUN 8 mg/dL (7-17) 08/14/16 08:51 Creatinine 0.6 mg/dL (0.7-1.2) L 08/14/16 08:51 Estimated GFR > 60 ml/min 08/14/16 08:51 BUN/Creatinine Ratio 13.33 % 08/14/16 08:51 Glucose 109 mg/dL (65-100) H 08/14/16 08:51 POC Glucose 275 (70-105) H 08/14/16 16:30 Lactic Acid 2.4 mmol/L (0.7-2.0) H* 08/05/16 22:59 Calcium 8.2 mg/dL (8.4-10.2) L 08/14/16 08:51 Phosphorus 2.9 mg/dL (2.5-4.5) 08/14/16 08:51 Magnesium 1.8 mg/dL (1.7-2.3) 08/14/16 08:51 Total Bilirubin 1.0 mg/dL (0.1-1.2) 08/10/16 07:07 AST 29 units/L (5-40) 08/10/16 07:07 ALT 27 units/L (7-56) 08/10/16 07:07 Alkaline Phosphatase 109 units/L (35-129) 08/10/16 07:07 Total Protein 6.6 g/dL (6.3-8.2) 08/10/16 07:07 Albumin 3.0 g/dL (3.9-5) L 08/10/16 07:07 Albumin/Globulin Ratio 0.8 % 08/10/16 07:07 Lipase 13 units/L (13-60) 08/05/16 22:59 Urine Color Straw (Yellow) 08/05/16 22:35 Urine Turbidity Clear (Clear) 08/05/16 22:35 Urine pH 8.0 (5.0-7.0) H 08/05/16 22:35 Ur Specific [place] 1.022 (1.003-1.030) 08/05/16 22:35 Urine Protein <15 mg/dl mg/dL (Negative) 08/05/16 22:35 Urine Glucose (UA) >=500 mg/dL (Negative) 08/05/16 22:35 Urine Ketones 20 mg/dL (Negative) 08/05/16 22:35 Urine Blood Neg (Negative) 08/05/16 22:35 Urine Nitrite Neg (Negative) 08/05/16 22:35 Urine Bilirubin Neg (Negative) 08/05/16 22:35 Urine Urobilinogen < 2.0 mg/dL (<2.0) 08/05/16 22:35 Ur Leukocyte Esterase Neg (Negative) 08/05/16 22:35 Urine WBC (Auto) 2.0 /HPF (0.0-6.0) 08/05/16 22:35 Urine RBC (Auto) 3.0 /HPF (0.0-6.0) 08/05/16 22:35 U Epithel Cells (Auto) < 1.0 /HPF (0-13.0) 08/05/16 22:35 Blood Type A POSITIVE 08/07/16 11:50 Antibody Screen Negative 08/07/16 11:50
[2016-08-14] MEDS: LEVEMIR SUB-Q SCH (22:59)
[2016-08-15] MEDS: ZOSYN/NS 4.5GM/100ML 4.5 GM/100 ML VIAL IV SCH ×3 (02:24→17:35)
[2016-08-15] MEDS: TYLENOL FEEDTUBE PRN ×2 (04:15→21:39)
[2016-08-15 06:14] LABS: Anion Gap 16 mmol/L; BUN/Creatinine Ratio 8.57; Blood Urea Nitrogen 6 mg/dL (7-17); Calcium 8.2 mg/dL (8.4-10.2); Carbon Dioxide 23 mmol/L (22-30); Chloride 107.6 mmol/L (98-107); Glucose 196 mg/dL (65-100); Magnesium 1.7 mg/dL (1.7-2.3); Phosphorous 2.4 mg/dL (2.5-4.5); Potassium 3.3 mmol/L (3.6-5.0); Sodium 143 mmol/L (137-145)
[2016-08-15] MEDS: NOVOLOG SUB-Q SCH ×4 (08:49→22:15)
[2016-08-15] MEDS: NACL 0.9% 1000 ML 1,000 ML IV SCH (08:52)
[2016-08-15] MEDS: PEPCID PO SCH ×2 (10:14→21:40)
[2016-08-15] MEDS: LOVENOX SUB-Q SCH (10:15)
--- NOTE | 2016-08-15 11:41 | Progress Note ---
Assessment and Plan IMP: Resolved post op ileus. PLAN: D/C [facility]. Discharge per hospitalist. Subjective Date of service: 08/15/16 Patient Reports: Positive: no new complaints, feels better, voiding w/o difficulty, flatus, bowel movement Objective Vital Signs - 12hr 08/15/16 08/15/16 08/15/16 00:49 01:53 08:18 Temperature 98.3 F 98.6 F Pulse Rate [ 93 H Left] Pulse Rate [ 93 H 88 Right Radial] Respiratory 18 20 Rate Blood Pressure 134/69 140/72 [Left Arm] O2 Sat by Pulse 98 97 Oximetry - Abdomen soft, not tender, bowel sounds normal, wound (dry,clear and healing well.) - Labs 08/14/16 08:51 08/15/16 05:25 Diabetes panel 08/15/16 Range/Units 05:25 Sodium 143 (137-145) mmol/L Potassium 3.3 L (3.6-5.0) mmol/L Chloride 107.6 H (98-107) mmol/L Carbon Dioxide 23 (22-30) mmol/L BUN 6 L (7-17) mg/dL Creatinine 0.7 (0.7-1.2) mg/dL Glucose 196 H (65-100) mg/dL Calcium 8.2 L (8.4-10.2) mg/dL Calcium panel 08/15/16 Range/Units 05:25 Calcium 8.2 L (8.4-10.2) mg/dL Phosphorus 2.4 L (2.5-4.5) mg/dL Pituitary panel 08/15/16 Range/Units 05:25 Sodium 143 (137-145) mmol/L Potassium 3.3 L (3.6-5.0) mmol/L Chloride 107.6 H (98-107) mmol/L Carbon Dioxide 23 (22-30) mmol/L BUN 6 L (7-17) mg/dL Creatinine 0.7 (0.7-1.2) mg/dL Glucose 196 H (65-100) mg/dL Calcium 8.2 L (8.4-10.2) mg/dL Adrenal panel 08/15/16 Range/Units 05:25 Sodium 143 (137-145) mmol/L Potassium 3.3 L (3.6-5.0) mmol/L Chloride 107.6 H (98-107) mmol/L Carbon Dioxide 23 (22-30) mmol/L BUN 6 L (7-17) mg/dL Creatinine 0.7 (0.7-1.2) mg/dL Glucose 196 H (65-100) mg/dL Calcium 8.2 L (8.4-10.2) mg/dL
--- NOTE | 2016-08-15 13:12 | Cat Scan Report ---
CT scan of head without contrast: History: AMS/sliding speech. Findings: Ventricles are normal in size and midline in location. No evidence of acute ischemia, hemorrhage or mass. No extra-axial fluid collection. Normal brainstem and cerebellum. Normal sinuses and mastoid air cells. Impression: No acute intracranial abnormality.
[2016-08-15] MEDS ORDERED: K-DUR PO ONE (16:05)
--- NOTE | 2016-08-15 16:13 | Progress Note ---
Assessment and Plan Assessment and plan: --Slurring speech for the last couple of weeks[reported by patient's sister from [facility]] Normal speech a few weeks ago, CT head without contrast negative, we'll check MRI to rule out CVA Not a candidate for TPA since the symptoms are few weeks old Aspirin and statin --Hypokalemia/hypophosphatemia Replace per protocol monitor levels --Small bowel obstruction status post surgery Tolerating soft diet, surgically cleared for discharge Physical therapy, placement to senior care/rehabilitation --Metabolic encephalopathy Significantly improved, patient more alert and awake Secondary to underlying disease process, improved --Type 2 diabetes mellitus Uncontrolled, Accu-Chek sliding scale coverage and ADA diet Increase insulin dose to 15 units Lantus --DVT prophylaxis with Lovenox and SCDs --CODE STATUS, full code Onsets and recommendations noted and appreciated Physical therapy occupational therapy DC planning senior care placement Follow MRI if negative DC and transfer to senior care once finalized by the family Plan of care discussed with the patient, sister from [facility] Answered all their questions History Interval history: Reason seen and evaluated medical records reviewed Feels slightly better more alert and responding appropriately Sister from [facility] reports that patient has slurring and slow speech Tolerating soft diet Hospitalist Physical - Constitutional Vitals: Temp Pulse Resp BP Pulse Ox 98 F 113 H 20 143/88 97 08/15/16 15:52 08/15/16 15:52 08/15/16 15:52 08/15/16 15:52 08/15/16 08:18 General appearance: Present: no acute distress, well-nourished, other (slow speech) - EENT Eyes: Present: PERRL, EOM intact - Neck Neck: Present: supple, normal ROM - Respiratory Respiratory effort: normal Respiratory: bilateral: diminished, negative: rales, rhonchi, wheezing - Cardiovascular Rhythm: regular Heart Sounds: Present: S1 & S2 - Extremities Extremities: no ischemia, pulses intact, pulses symmetrical Peripheral Pulses: within normal limits - Abdominal General gastrointestinal: soft, non-tender, non-distended, normal bowel sounds - Integumentary Integumentary: Present: clear, warm - Psychiatric Psychiatric: other (slow speech) - Neurologic Neurologic: moves all extremities, other (slow speech, mild slurring) Results - Labs CBC & Chem 7: 08/14/16 08:51 08/15/16 05:25 Labs: Laboratory Last Values WBC 9.9 K/mm3 (4.5-11.0) 08/14/16 08:51 RBC 3.98 M/mm3 (3.65-5.03) 08/14/16 08:51 Hgb 11.9 gm/dl (10.1-14.3) 08/14/16 08:51 Hct 36.1 % (30.3-42.9) 08/14/16 08:51 MCV 91 fl (79-97) 08/14/16 08:51 MCH 30 pg (28-32) 08/14/16 08:51 MCHC 33 % (30-34) 08/14/16 08:51 RDW 14.3 % (13.2-15.2) 08/14/16 08:51 Plt Count 212 K/mm3 (140-440) 08/14/16 08:51 Lymph % (Auto) 13.8 % (13.4-35.0) 08/12/16 07:16 Reynolds % (Auto) 14.0 % (0.0-7.3) H 08/12/16 07:16 Eos % (Auto) 0.3 % (0.0-4.3) 08/12/16 07:16 Baso % (Auto) 0.3 % (0.0-1.8) 08/12/16 07:16 Lymph # 1.7 K/mm3 (1.2-5.4) 08/12/16 07:16 Reynolds # 1.7 K/mm3 (0.0-0.8) H 08/12/16 07:16 Eos # 0.0 K/mm3 (0.0-0.4) 08/12/16 07:16 Baso # 0.0 K/mm3 (0.0-0.1) 08/12/16 07:16 Add Manual Diff Complete 08/14/16 08:51 Total Counted 100 08/14/16 08:51 Seg Neutrophils % 71.6 % (40.0-70.0) H 08/12/16 07:16 Seg Neuts % (Manual) 63.0 % (40.0-70.0) 08/14/16 08:51 Band Neutrophils % 2.0 % 08/14/16 08:51 Lymphocytes % (Manual) 22.0 % (13.4-35.0) 08/14/16 08:51 Reactive Lymphs % (Man) 0 % 08/14/16 08:51 Monocytes % (Manual) 9.0 % (0.0-7.3) H 08/14/16 08:51 Eosinophils % (Manual) 4.0 % (0.0-4.3) 08/14/16 08:51 Basophils % (Manual) 0 % (0.0-1.8) 08/14/16 08:51 Metamyelocytes % 0 % 08/14/16 08:51 Myelocytes % 0 % 08/14/16 08:51 Promyelocytes % 0 % 08/14/16 08:51 Blast Cells % 0 % 08/14/16 08:51 Nucleated RBC % Not Reportable 08/14/16 08:51 Seg Neutrophils # 8.6 K/mm3 (1.8-7.7) H 08/12/16 07:16 Seg Neutrophils # Man 6.2 K/mm3 (1.8-7.7) 08/14/16 08:51 Band Neutrophils # 0.2 K/mm3 08/14/16 08:51 Lymphocytes # (Manual) 2.2 K/mm3 (1.2-5.4) 08/14/16 08:51 Abs React Lymphs (Man) 0.0 K/mm3 08/14/16 08:51 Monocytes # (Manual) 0.9 K/mm3 (0.0-0.8) H 08/14/16 08:51 Eosinophils # (Manual) 0.4 K/mm3 (0.0-0.4) 08/14/16 08:51 Basophils # (Manual) 0.0 K/mm3 (0.0-0.1) 08/14/16 08:51 Metamyelocytes # 0.0 K/mm3 08/14/16 08:51 Myelocytes # 0.0 K/mm3 08/14/16 08:51 Promyelocytes # 0.0 K/mm3 08/14/16 08:51 Blast Cells # 0.0 K/mm3 08/14/16 08:51 WBC Morphology Not Reportable 08/14/16 08:51 Hypersegmented Neuts Not Reportable 08/14/16 08:51 Hyposegmented Neuts Not Reportable 08/14/16 08:51 Hypogranular Neuts Not Reportable 08/14/16 08:51 Smudge Cells Not Reportable 08/14/16 08:51 Toxic Granulation Not Reportable 08/14/16 08:51 Toxic Vacuolation Not Reportable 08/14/16 08:51 Dohle Bodies Not Reportable 08/14/16 08:51 Pelger-Huet Anomaly Not Reportable 08/14/16 08:51 Ritesh Rods Not Reportable 08/14/16 08:51 Platelet Estimate Cons 08/14/16 08:51 Clumped Platelets Not Reportable 08/14/16 08:51 Plt Clumps, EDTA Not Reportable 08/14/16 08:51 Large Platelets 1+ 08/14/16 08:51 Giant Platelets Not Reportable 08/14/16 08:51 Platelet Satelliting Not Reportable 08/14/16 08:51 Plt Morphology Comment Not Reportable 08/14/16 08:51 RBC Morphology Not Reportable 08/14/16 08:51 Dimorphic RBCs Not Reportable 08/14/16 08:51 Polychromasia Few 08/14/16 08:51 Hypochromasia Not Reportable 08/14/16 08:51 Poikilocytosis Not Reportable 08/14/16 08:51 Anisocytosis 1+ 08/14/16 08:51 Microcytosis Not Reportable 08/14/16 08:51 Macrocytosis Not Reportable 08/14/16 08:51 Spherocytes Not Reportable 08/14/16 08:51 Pappenheimer Bodies Not Reportable 08/14/16 08:51 Sickle Cells Not Reportable 08/14/16 08:51 Target Cells Not Reportable 08/14/16 08:51 Tear Drop Cells Not Reportable 08/14/16 08:51 Ovalocytes Not Reportable 08/14/16 08:51 Helmet Cells Not Reportable 08/14/16 08:51 Angel[place] Bodies Not Reportable 08/14/16 08:51 [place] Rings Not Reportable 08/14/16 08:51 [place] Cells Not Reportable 08/14/16 08:51 Bite Cells Not Reportable 08/14/16 08:51 Crenated Cell Not Reportable 08/14/16 08:51 Elliptocytes Not Reportable 08/14/16 08:51 Acanthocytes (Spur) Not Reportable 08/14/16 08:51 Rouleaux Not Reportable 08/14/16 08:51 Hemoglobin C Crystals Not Reportable 08/14/16 08:51 Schistocytes Not Reportable 08/14/16 08:51 Malaria parasites Not Reportable 08/14/16 08:51 [place] Bodies Not Reportable 08/14/16 08:51 Hem Pathologist Commnt No 08/14/16 08:51 VBG pH 7.375 (7.320-7.420) 08/05/16 22:59 Sodium 143 mmol/L (137-145) 08/15/16 05:25 Potassium 3.3 mmol/L (3.6-5.0) L 08/15/16 05:25 Chloride 107.6 mmol/L (98-107) H 08/15/16 05:25 Carbon Dioxide 23 mmol/L (22-30) 08/15/16 05:25 Anion Gap 16 mmol/L 08/15/16 05:25 BUN 6 mg/dL (7-17) L 08/15/16 05:25 Creatinine 0.7 mg/dL (0.7-1.2) 08/15/16 05:25 Estimated GFR > 60 ml/min 08/15/16 05:25 BUN/Creatinine Ratio 8.57 % 08/15/16 05:25 Glucose 196 mg/dL (65-100) H 08/15/16 05:25 POC Glucose 260 (70-105) H 08/15/16 11:33 Lactic Acid 2.4 mmol/L (0.7-2.0) H* 08/05/16 22:59 Calcium 8.2 mg/dL (8.4-10.2) L 08/15/16 05:25 Phosphorus 2.4 mg/dL (2.5-4.5) L 08/15/16 05:25 Magnesium 1.7 mg/dL (1.7-2.3) 08/15/16 05:25 Total Bilirubin 1.0 mg/dL (0.1-1.2) 08/10/16 07:07 AST 29 units/L (5-40) 08/10/16 07:07 ALT 27 units/L (7-56) 08/10/16 07:07 Alkaline Phosphatase 109 units/L (35-129) 08/10/16 07:07 Total Protein 6.6 g/dL (6.3-8.2) 08/10/16 07:07 Albumin 3.0 g/dL (3.9-5) L 08/10/16 07:07 Albumin/Globulin Ratio 0.8 % 08/10/16 07:07 Lipase 13 units/L (13-60) 08/05/16 22:59 Urine Color Straw (Yellow) 08/05/16 22:35 Urine Turbidity Clear (Clear) 08/05/16 22:35 Urine pH 8.0 (5.0-7.0) H 08/05/16 22:35 Ur Specific [place] 1.022 (1.003-1.030) 08/05/16 22:35 Urine Protein <15 mg/dl mg/dL (Negative) 08/05/16 22:35 Urine Glucose (UA) >=500 mg/dL (Negative) 08/05/16 22:35 Urine Ketones 20 mg/dL (Negative) 08/05/16 22:35 Urine Blood Neg (Negative) 08/05/16 22:35 Urine Nitrite Neg (Negative) 08/05/16 22:35 Urine Bilirubin Neg (Negative) 08/05/16 22:35 Urine Urobilinogen < 2.0 mg/dL (<2.0) 08/05/16 22:35 Ur Leukocyte Esterase Neg (Negative) 08/05/16 22:35 Urine WBC (Auto) 2.0 /HPF (0.0-6.0) 08/05/16 22:35 Urine RBC (Auto) 3.0 /HPF (0.0-6.0) 08/05/16 22:35 U Epithel Cells (Auto) < 1.0 /HPF (0-13.0) 08/05/16 22:35 Blood Type A POSITIVE 08/07/16 11:50 Antibody Screen Negative 08/07/16 11:50
[2016-08-15] MEDS ORDERED: ATIVAN IV NR (16:15)
[2016-08-15] MEDS: ZOCOR PO SCH (21:40)
[2016-08-15] MEDS: LEVEMIR SUB-Q SCH (22:16)
[2016-08-16] MEDS: ZOSYN/NS 4.5GM/100ML 4.5 GM/100 ML VIAL IV SCH ×3 (02:03→19:00)
[2016-08-16 07:06] LABS: Anion Gap 17 mmol/L; Blood Urea Nitrogen 6 mg/dL (7-17); Calcium 8.4 mg/dL (8.4-10.2); Carbon Dioxide 22 mmol/L (22-30); Chloride 106.6 mmol/L (98-107); Glucose 208 mg/dL (65-100); Phosphorous 2.6 mg/dL (2.5-4.5); Potassium 3.4 mmol/L (3.6-5.0); Sodium 142 mmol/L (137-145)
[2016-08-16] MEDS: NACL 0.9% 1000 ML 1,000 ML IV SCH (08:18)
[2016-08-16] MEDS: NOVOLOG SUB-Q SCH ×4 (08:38→22:27)
[2016-08-16] MEDS ORDERED: K-DUR PO ONE (09:00)
--- NOTE | 2016-08-16 11:29 | Progress Note ---
Assessment and Plan Assessment and plan: --slurring and slow speech ,intermittent CT head negative, follow MRI --Delirium Psych evaluation noted and appreciated, advised remeron --Metabolic encephalopathy/ Delirium Significantly improved, patient more alert and awake Secondary to underlying disease process, improved --Small bowel obstruction status post surgery Advance diet as tolerated, pain medications Surgery following --Type 2 diabetes mellitus Uncontrolled, Accu-Chek sliding scale coverage and ADA diet Increase insulin dose to 15 units Lantus --GERD Continue Protonix --DVT prophylaxis with Lovenox and SCDs --CODE STATUS, full code Onsets and recommendations noted and appreciated Physical therapy occupational therapy History Interval history: She feels slightly better today No new complaints No new episodes pressure by the nursing staff Alert and awake and responding appropriately, not in acute distress Hospitalist Physical - Constitutional Vitals: Temp Pulse Resp BP Pulse Ox 98.4 F 88 18 140/80 97 08/16/16 07:30 08/16/16 07:30 08/16/16 07:30 08/16/16 07:30 08/16/16 07:30 General appearance: Present: no acute distress, well-nourished - EENT Eyes: Present: PERRL, EOM intact - Neck Neck: Present: supple, normal ROM - Respiratory Respiratory effort: normal Respiratory: bilateral: diminished, negative: rales, rhonchi, wheezing - Cardiovascular Rhythm: regular Heart Sounds: Present: S1 & S2 - Extremities Extremities: no ischemia, pulses intact, pulses symmetrical Peripheral Pulses: within normal limits - Abdominal General gastrointestinal: soft, non-tender, non-distended, normal bowel sounds - Integumentary Integumentary: Present: clear, warm - Psychiatric Psychiatric: appropriate mood/affect, cooperative - Neurologic Neurologic: CNII-XII intact, moves all extremities Results - Labs CBC & Chem 7: 08/14/16 08:51 08/16/16 05:55 Labs: Laboratory Last Values WBC 9.9 K/mm3 (4.5-11.0) 08/14/16 08:51 RBC 3.98 M/mm3 (3.65-5.03) 08/14/16 08:51 Hgb 11.9 gm/dl (10.1-14.3) 08/14/16 08:51 Hct 36.1 % (30.3-42.9) 08/14/16 08:51 MCV 91 fl (79-97) 08/14/16 08:51 MCH 30 pg (28-32) 08/14/16 08:51 MCHC 33 % (30-34) 08/14/16 08:51 RDW 14.3 % (13.2-15.2) 08/14/16 08:51 Plt Count 212 K/mm3 (140-440) 08/14/16 08:51 Lymph % (Auto) 13.8 % (13.4-35.0) 08/12/16 07:16 [place] % (Auto) 14.0 % (0.0-7.3) H 08/12/16 07:16 Eos % (Auto) 0.3 % (0.0-4.3) 08/12/16 07:16 Baso % (Auto) 0.3 % (0.0-1.8) 08/12/16 07:16 Lymph # 1.7 K/mm3 (1.2-5.4) 08/12/16 07:16 [place] # 1.7 K/mm3 (0.0-0.8) H 08/12/16 07:16 Eos # 0.0 K/mm3 (0.0-0.4) 08/12/16 07:16 Baso # 0.0 K/mm3 (0.0-0.1) 08/12/16 07:16 Add Manual Diff Complete 08/14/16 08:51 Total Counted 100 08/14/16 08:51 Seg Neutrophils % 71.6 % (40.0-70.0) H 08/12/16 07:16 Seg Neuts % (Manual) 63.0 % (40.0-70.0) 08/14/16 08:51 Band Neutrophils % 2.0 % 08/14/16 08:51 Lymphocytes % (Manual) 22.0 % (13.4-35.0) 08/14/16 08:51 Reactive Lymphs % (Man) 0 % 08/14/16 08:51 Monocytes % (Manual) 9.0 % (0.0-7.3) H 08/14/16 08:51 Eosinophils % (Manual) 4.0 % (0.0-4.3) 08/14/16 08:51 Basophils % (Manual) 0 % (0.0-1.8) 08/14/16 08:51 Metamyelocytes % 0 % 08/14/16 08:51 Myelocytes % 0 % 08/14/16 08:51 Promyelocytes % 0 % 08/14/16 08:51 Blast Cells % 0 % 08/14/16 08:51 Nucleated RBC % Not Reportable 08/14/16 08:51 Seg Neutrophils # 8.6 K/mm3 (1.8-7.7) H 08/12/16 07:16 Seg Neutrophils # Man 6.2 K/mm3 (1.8-7.7) 08/14/16 08:51 Band Neutrophils # 0.2 K/mm3 08/14/16 08:51 Lymphocytes # (Manual) 2.2 K/mm3 (1.2-5.4) 08/14/16 08:51 Abs React Lymphs (Man) 0.0 K/mm3 08/14/16 08:51 Monocytes # (Manual) 0.9 K/mm3 (0.0-0.8) H 08/14/16 08:51 Eosinophils # (Manual) 0.4 K/mm3 (0.0-0.4) 08/14/16 08:51 Basophils # (Manual) 0.0 K/mm3 (0.0-0.1) 08/14/16 08:51 Metamyelocytes # 0.0 K/mm3 08/14/16 08:51 Myelocytes # 0.0 K/mm3 08/14/16 08:51 Promyelocytes # 0.0 K/mm3 08/14/16 08:51 Blast Cells # 0.0 K/mm3 08/14/16 08:51 WBC Morphology Not Reportable 08/14/16 08:51 Hypersegmented Neuts Not Reportable 08/14/16 08:51 Hyposegmented Neuts Not Reportable 08/14/16 08:51 Hypogranular Neuts Not Reportable 08/14/16 08:51 Smudge Cells Not Reportable 08/14/16 08:51 Toxic Granulation Not Reportable 08/14/16 08:51 Toxic Vacuolation Not Reportable 08/14/16 08:51 Dohle Bodies Not Reportable 08/14/16 08:51 Pelger-Huet Anomaly Not Reportable 08/14/16 08:51 Ritesh Rods Not Reportable 08/14/16 08:51 Platelet Estimate Cons 08/14/16 08:51 Clumped Platelets Not Reportable 08/14/16 08:51 Plt Clumps, EDTA Not Reportable 08/14/16 08:51 Large Platelets 1+ 08/14/16 08:51 Giant Platelets Not Reportable 08/14/16 08:51 Platelet Satelliting Not Reportable 08/14/16 08:51 Plt Morphology Comment Not Reportable 08/14/16 08:51 RBC Morphology Not Reportable 08/14/16 08:51 Dimorphic RBCs Not Reportable 08/14/16 08:51 Polychromasia Few 08/14/16 08:51 Hypochromasia Not Reportable 08/14/16 08:51 Poikilocytosis Not Reportable 08/14/16 08:51 Anisocytosis 1+ 08/14/16 08:51 Microcytosis Not Reportable 08/14/16 08:51 Macrocytosis Not Reportable 08/14/16 08:51 Spherocytes Not Reportable 08/14/16 08:51 Pappenheimer Bodies Not Reportable 08/14/16 08:51 Sickle Cells Not Reportable 08/14/16 08:51 Target Cells Not Reportable 08/14/16 08:51 Tear Drop Cells Not Reportable 08/14/16 08:51 Ovalocytes Not Reportable 08/14/16 08:51 Helmet Cells Not Reportable 08/14/16 08:51 [place] Bodies Not Reportable 08/14/16 08:51 [place] Rings Not Reportable 08/14/16 08:51 Lety Cells Not Reportable 08/14/16 08:51 Bite Cells Not Reportable 08/14/16 08:51 Crenated Cell Not Reportable 08/14/16 08:51 Elliptocytes Not Reportable 08/14/16 08:51 Acanthocytes (Spur) Not Reportable 08/14/16 08:51 Rouleaux Not Reportable 08/14/16 08:51 Hemoglobin C Crystals Not Reportable 08/14/16 08:51 Schistocytes Not Reportable 08/14/16 08:51 Malaria parasites Not Reportable 08/14/16 08:51 [place] Bodies Not Reportable 08/14/16 08:51 Hem Pathologist Commnt No 08/14/16 08:51 VBG pH 7.375 (7.320-7.420) 08/05/16 22:59 Sodium 142 mmol/L (137-145) 08/16/16 05:55 Potassium 3.4 mmol/L (3.6-5.0) L 08/16/16 05:55 Chloride 106.6 mmol/L (98-107) 08/16/16 05:55 Carbon Dioxide 22 mmol/L (22-30) 08/16/16 05:55 Anion Gap 17 mmol/L 08/16/16 05:55 BUN 6 mg/dL (7-17) L 08/16/16 05:55 Creatinine 0.5 mg/dL (0.7-1.2) L 08/16/16 05:55 Estimated GFR > 60 ml/min 08/16/16 05:55 BUN/Creatinine Ratio 12.00 % 08/16/16 05:55 Glucose 208 mg/dL (65-100) H 08/16/16 05:55 POC Glucose 209 (70-105) H 08/16/16 06:11 Lactic Acid 2.4 mmol/L (0.7-2.0) H* 08/05/16 22:59 Calcium 8.4 mg/dL (8.4-10.2) 08/16/16 05:55 Phosphorus 2.6 mg/dL (2.5-4.5) 08/16/16 05:55 Magnesium 1.7 mg/dL (1.7-2.3) 08/15/16 05:25 Total Bilirubin 1.0 mg/dL (0.1-1.2) 08/10/16 07:07 AST 29 units/L (5-40) 08/10/16 07:07 ALT 27 units/L (7-56) 08/10/16 07:07 Alkaline Phosphatase 109 units/L (35-129) 08/10/16 07:07 Total Protein 6.6 g/dL (6.3-8.2) 08/10/16 07:07 Albumin 3.0 g/dL (3.9-5) L 08/10/16 07:07 Albumin/Globulin Ratio 0.8 % 08/10/16 07:07 Lipase 13 units/L (13-60) 08/05/16 22:59 Urine Color Straw (Yellow) 08/05/16 22:35 Urine Turbidity Clear (Clear) 08/05/16 22:35 Urine pH 8.0 (5.0-7.0) H 08/05/16 22:35 Ur Specific [place] 1.022 (1.003-1.030) 08/05/16 22:35 Urine Protein <15 mg/dl mg/dL (Negative) 08/05/16 22:35 Urine Glucose (UA) >=500 mg/dL (Negative) 08/05/16 22:35 Urine Ketones 20 mg/dL (Negative) 08/05/16 22:35 Urine Blood Neg (Negative) 08/05/16 22:35 Urine Nitrite Neg (Negative) 08/05/16 22:35 Urine Bilirubin Neg (Negative) 08/05/16 22:35 Urine Urobilinogen < 2.0 mg/dL (<2.0) 08/05/16 22:35 Ur Leukocyte Esterase Neg (Negative) 08/05/16 22:35 Urine WBC (Auto) 2.0 /HPF (0.0-6.0) 08/05/16 22:35 Urine RBC (Auto) 3.0 /HPF (0.0-6.0) 08/05/16 22:35 U Epithel Cells (Auto) < 1.0 /HPF (0-13.0) 08/05/16 22:35 Blood Type A POSITIVE 08/07/16 11:50 Antibody Screen Negative 08/07/16 11:50
[2016-08-16] MEDS: PEPCID PO SCH ×2 (11:58→22:09)
[2016-08-16] MEDS: ASPIRIN PO SCH (11:58)
[2016-08-16] MEDS: LOVENOX SUB-Q SCH (11:59)
--- NOTE | 2016-08-16 12:55 | Magnetic Resonance Report ---
MRI BRAIN WITHOUT CONTRAST INDICATION: Slurred speech. COMPARISON: Yesterday's head CT. FINDINGS: Noncontrast multiplanar and multisequence MRI of the brain somewhat limited due to motion with some sequences repeated, though demonstrates no acute infarct, hemorrhage, mass effect or midline shift. No abnormal extra-axial masses or fluid collections. Age-appropriate ventricles and sulci. Slight periventricular and few white matter FLAIR and T2 weighted hyperintensities. Normal major intracranial vascular flow voids. Normal posterior fossa with symmetric seventh and eighth nerve complexes and preserved basilar cisterns. Subtle encephalomalacia along superior aspect of the right cerebellar hemisphere. Normal eye globes. Rightward nasal septal deviation and approximately 4 mm rightward septal spur, possibly touching the nasal wall. Clear imaged paranasal sinuses and mastoid air cells. Grossly normal midline structures without evidence of Chiari malformation. CONCLUSION: No acute intracranial MRI abnormality with age-appropriate atrophy and few other incidental findings, as above. Please correlate. Thank you for the opportunity to participate in this patient's care.
[2016-08-16] MEDS: K-DUR PO SCH (13:09)
--- NOTE | 2016-08-16 18:07 | Consultation ---
History of Present Illness - Reason for Consult Reason for consult: psych management - Chief Complaint Chief complaint: cc: "God only knows." 61 year old BF with no prior psych history presented to [facility] for abdominal pain. Subsequently had surgery and post op has been agitated and confused. Patient was unable to answer majority of the questions asked secondary to her confusion. Her isisters did answer many questions though. They note that prior to this admission the patient seemed depressed at home- isolating in the house and not very engaging, especially with the mormonism. However she was able to care for her ADL's and did not show any signs of wanting to give up or suicidal thinking. She also was not confused and fully oriented. Now the patient is confused and does tend to show periods of physical agitation. She has not been sleeping. She is eating and drinking and compliant with the meds. She has not should signs of talking to others not there, but she has been seeing things not there. Medications and Allergies Allergies Allergy/AdvReac Type Severity Reaction Status Date / Time No Known Allergies Allergy Verified 01/07/16 22:32 Home Medications Medication Instructions Recorded Confirmed Last Taken Type Baclofen 10 mg PO BID 09/19/13 06/05/16 06/04/16 History Carvedilol [Coreg] 25 mg PO BID 09/19/13 06/05/16 06/04/16 History Insulin Regular, Human [HumuLIN R] See Protocol SQ AC 09/19/13 06/05/16 1 Day Ago History amLODIPine [Norvasc] 10 mg PO DAILY 09/19/13 06/05/16 06/04/16 History Aspirin [Aspirin BABY CHEW TAB] 81 mg PO DAILY 09/22/13 06/05/16 1 Day Ago History Losartan [Cozaar] 100 mg PO DAILY 09/22/13 06/05/16 06/04/16 History Insulin Glargine,Hum.rec.anlog See Protocol SQ HS 05/27/15 06/05/16 1 Day Ago History [Lantus] Lovastatin [Altoprev] 20 mg PO QPM 05/27/15 06/05/16 06/04/16 History Omeprazole [PriLOSEC] 20 mg PO QDAY 05/27/15 06/05/16 06/04/16 History Clopidogrel Bisulfate [Plavix] 75 mg PO DAILY 06/05/16 06/05/16 Unknown History Meclizine [Antivert] 25 mg PO TID PRN 06/05/16 06/05/16 Unknown History Vitamin D3 1 tab PO HS 06/05/16 06/05/16 Unknown History Diazepam Tab [Valium] 5 mg PO QHS PRN #15 tablet 06/07/16 Unknown Rx traMADol [Ultram 50 MG tab] 50 mg PO Q6HR PRN #30 tablet 06/07/16 Unknown Rx Active Meds: Active Medications Acetaminophen (Tylenol) 650 mg FEEDTUBE Q4H PRN PRN Reason: Pain, Mild (1-3) Last Admin: 08/15/16 21:39 Dose: 650 mg Aspirin (Aspirin) 325 mg PO QDAY [facility] Last Admin: 08/16/16 11:58 Dose: 325 mg Dextrose (D50w (25gm)) 50 ml IV PRN PRN PRN Reason: Hypoglycemia Enoxaparin Sodium (Lovenox) 40 mg SUB-Q QDAY [facility] Last Admin: 08/16/16 11:59 Dose: 40 mg Famotidine (Pepcid) 20 mg PO BID [facility] Last Admin: 08/16/16 11:58 Dose: 20 mg Hydralazine HCl (Apresoline) 5 mg IV Q6H PRN PRN Reason: Hypertension Last Admin: 08/11/16 04:44 Dose: 5 mg Piperacillin Sod/Tazobactam Sod (Zosyn/Ns 4.5gm/100ml) 4.5 gm in 100 mls @ 200 mls/hr IV Q8H JUAN M PRN Reason: Protocol Last Admin: 08/16/16 13:08 Dose: 200 mls/hr Sodium Chloride (Nacl 0.9% 1000 Ml) 1,000 mls @ 50 mls/hr IV DIRECT [facility] Last Admin: 08/16/16 08:18 Dose: 50 mls/hr Insulin Aspart (Novolog) 0 units SUB-Q ACHS [facility] PRN Reason: Protocol Last Admin: 08/16/16 12:53 Dose: 4 units Insulin Detemir (Levemir) 18 units SUB-Q QHS [facility] Last Admin: 08/15/16 22:16 Dose: 18 units Lorazepam (Ativan) 1 mg IV Q4H PRN PRN Reason: Sedation Last Admin: 08/12/16 21:47 Dose: 1 mg Morphine Sulfate (Morphine) 2 mg IV Q4H PRN PRN Reason: Pain, Moderate (4-6) Last Admin: 08/13/16 13:34 Dose: 2 mg Ondansetron HCl (Zofran) 4 mg IV Q8H PRN PRN Reason: N/V unrelieved by Reglan Last Admin: 08/07/16 04:18 Dose: 4 mg Potassium Chloride (K-Dur) 20 meq PO QDAY [facility] Last Admin: 08/16/16 13:09 Dose: 20 meq Simvastatin (Zocor) 20 mg PO QHS [facility] Last Admin: 08/15/16 21:40 Dose: 20 mg Past psychiatric history - Past Medical History Past Medical History: diabetes, hypertension Past Surgical History: bowel surgery - past Psychiatric treatment and history psychiatric treatment history: inpt: none outp psych: none no suicidal attempt history no family history no substance use history - Social History Social history: other (lives at home by self, not dating, 1 son, several supports from her sisters,) Mental Status Exam - Vital signs Last Vital Signs Temp 98.4 F 08/16/16 07:30 Pulse 88 08/16/16 07:30 Resp 18 08/16/16 07:30 BP 140/80 08/16/16 07:30 Pulse Ox 97 08/16/16 07:30 - Exam Orientation: person Affect: normal Mood: other (no answer) Thought Process: Circumstantial, Tangential, Disorganized, Disoriented Perceptions: visual Speech: minimal response Concentration: distractible Motor activity: normal Level of consciousness: confused Memory: Recent Impaired, Remote Impaired Sleep Symptoms: Insomnia, Restless Appetite: increased Interaction: apathetic Mini mental status exam(if necessary): 0-17 Results Result Diagrams: 08/14/16 08:51 08/16/16 05:55 Abnormal lab results 08/15/16 08/16/16 08/16/16 Range/Units 21:32 05:55 06:11 Potassium 3.4 L (3.6-5.0) mmol/L BUN 6 L (7-17) mg/dL Creatinine 0.5 L (0.7-1.2) mg/dL Glucose 208 H (65-100) mg/dL POC Glucose 358 H 209 H (70-105) 03/24/17 03/24/17 Range/Units 12:06 17:18 Potassium (3.6-5.0) mmol/L BUN (7-17) mg/dL Creatinine (0.7-1.2) mg/dL Glucose (65-100) mg/dL POC Glucose 239 H 282 H (70-105) All other labs normal. Assessment and Plan Assessment and plan: 61 year old BF with no prior psych history presented to [facility] for abdominal pain. Subsequently had surgery and post op has been agitated and confused. Patient continues to be confused and agitated- especially at night. She is unable to give us much information as to her history but here sisters where able to give us more information. She doesn't have any mental health history and was functioning independently prior to the admission. Plan: agitation and confusion: need to improve sleep/wake cycle. - consider remeron 7.5 mg bedtime for sleep and her mood- discussed black box warning- family notes that the patient has some undiagnosed depression. limit meds known to increase confusion such as benzos and anticholinergics - Psychiatric problem (1) Delirium Current Visit: Yes Status: Acute
[2016-08-16] MEDS: ZOCOR PO SCH (22:09)
[2016-08-16] MEDS: REMERON SOLUTAB PO SCH (22:09)
[2016-08-16] MEDS: TYLENOL FEEDTUBE PRN (22:21)
[2016-08-16] MEDS: LEVEMIR SUB-Q SCH (22:27)
[2016-08-17] MEDS: ZOSYN/NS 4.5GM/100ML 4.5 GM/100 ML VIAL IV SCH ×3 (02:42→17:40)
[2016-08-17] MEDS: TYLENOL FEEDTUBE PRN (06:24)
[2016-08-17] MEDS: NACL 0.9% 1000 ML 1,000 ML IV SCH (06:31)
[2016-08-17] MEDS: NOVOLOG SUB-Q SCH ×4 (08:15→22:49)
[2016-08-17] MEDS: K-DUR PO SCH (10:39)
[2016-08-17] MEDS: APRESOLINE PO SCH ×3 (10:39→22:08)
[2016-08-17] MEDS: LOVENOX SUB-Q SCH (10:39)
[2016-08-17] MEDS: ASPIRIN PO SCH (10:39)
[2016-08-17] MEDS: PEPCID PO SCH ×2 (10:39→22:05)
--- NOTE | 2016-08-17 12:05 | Progress Note ---
Assessment and Plan Assessment and plan: --slurring and slow speech ,intermittent CT head negative, MRI negative --Delirium Psych evaluation noted and appreciated, continue remeron --Metabolic encephalopathy/ Delirium Significantly improved, patient more alert and awake Secondary to underlying disease process, improved --Small bowel obstruction status post surgery Advance diet as tolerated, pain medications Surgery following --Type 2 diabetes mellitus Uncontrolled, Accu-Chek sliding scale coverage and ADA diet Increase insulin dose to 15 units Lantus --GERD Continue Protonix --DVT prophylaxis with Lovenox and SCDs --CODE STATUS, full code Physical therapy occupational therapy Discharge and transfer to SNF in 1-2 days if stable History Interval history: Patient seen and evaluated and medical records viewed Multiple family members at the bedside Patient is more alert and awake, responding appropriately Not in acute distress Hospitalist Physical - Constitutional Vitals: Temp Pulse Resp BP Pulse Ox 97.4 F L 87 18 163/77 97 08/17/16 08:15 08/17/16 08:15 08/17/16 08:15 08/17/16 08:15 08/17/16 08:15 General appearance: Present: no acute distress, well-nourished - EENT Eyes: Present: PERRL, EOM intact - Neck Neck: Present: supple, normal ROM - Respiratory Respiratory effort: normal Respiratory: bilateral: diminished, negative: rales, rhonchi, wheezing - Cardiovascular Rhythm: regular Heart Sounds: Present: S1 & S2 - Extremities Extremities: no ischemia, pulses intact, pulses symmetrical Peripheral Pulses: within normal limits - Abdominal General gastrointestinal: soft, non-tender, non-distended, normal bowel sounds - Integumentary Integumentary: Present: clear, warm - Psychiatric Psychiatric: appropriate mood/affect, cooperative - Neurologic Neurologic: CNII-XII intact, moves all extremities Results - Labs CBC & Chem 7: 08/14/16 08:51 08/16/16 05:55 Labs: Laboratory Last Values WBC 9.9 K/mm3 (4.5-11.0) 08/14/16 08:51 RBC 3.98 M/mm3 (3.65-5.03) 08/14/16 08:51 Hgb 11.9 gm/dl (10.1-14.3) 08/14/16 08:51 Hct 36.1 % (30.3-42.9) 08/14/16 08:51 MCV 91 fl (79-97) 08/14/16 08:51 MCH 30 pg (28-32) 08/14/16 08:51 MCHC 33 % (30-34) 08/14/16 08:51 RDW 14.3 % (13.2-15.2) 08/14/16 08:51 Plt Count 212 K/mm3 (140-440) 08/14/16 08:51 Lymph % (Auto) 13.8 % (13.4-35.0) 08/12/16 07:16 [place] % (Auto) 14.0 % (0.0-7.3) H 08/12/16 07:16 Eos % (Auto) 0.3 % (0.0-4.3) 08/12/16 07:16 Baso % (Auto) 0.3 % (0.0-1.8) 08/12/16 07:16 Lymph # 1.7 K/mm3 (1.2-5.4) 08/12/16 07:16 [place] # 1.7 K/mm3 (0.0-0.8) H 08/12/16 07:16 Eos # 0.0 K/mm3 (0.0-0.4) 08/12/16 07:16 Baso # 0.0 K/mm3 (0.0-0.1) 08/12/16 07:16 Add Manual Diff Complete 08/14/16 08:51 Total Counted 100 08/14/16 08:51 Seg Neutrophils % 71.6 % (40.0-70.0) H 08/12/16 07:16 Seg Neuts % (Manual) 63.0 % (40.0-70.0) 08/14/16 08:51 Band Neutrophils % 2.0 % 08/14/16 08:51 Lymphocytes % (Manual) 22.0 % (13.4-35.0) 08/14/16 08:51 Reactive Lymphs % (Man) 0 % 08/14/16 08:51 Monocytes % (Manual) 9.0 % (0.0-7.3) H 08/14/16 08:51 Eosinophils % (Manual) 4.0 % (0.0-4.3) 08/14/16 08:51 Basophils % (Manual) 0 % (0.0-1.8) 08/14/16 08:51 Metamyelocytes % 0 % 08/14/16 08:51 Myelocytes % 0 % 08/14/16 08:51 Promyelocytes % 0 % 08/14/16 08:51 Blast Cells % 0 % 08/14/16 08:51 Nucleated RBC % Not Reportable 08/14/16 08:51 Seg Neutrophils # 8.6 K/mm3 (1.8-7.7) H 08/12/16 07:16 Seg Neutrophils # Man 6.2 K/mm3 (1.8-7.7) 08/14/16 08:51 Band Neutrophils # 0.2 K/mm3 08/14/16 08:51 Lymphocytes # (Manual) 2.2 K/mm3 (1.2-5.4) 08/14/16 08:51 Abs React Lymphs (Man) 0.0 K/mm3 08/14/16 08:51 Monocytes # (Manual) 0.9 K/mm3 (0.0-0.8) H 08/14/16 08:51 Eosinophils # (Manual) 0.4 K/mm3 (0.0-0.4) 08/14/16 08:51 Basophils # (Manual) 0.0 K/mm3 (0.0-0.1) 08/14/16 08:51 Metamyelocytes # 0.0 K/mm3 08/14/16 08:51 Myelocytes # 0.0 K/mm3 08/14/16 08:51 Promyelocytes # 0.0 K/mm3 08/14/16 08:51 Blast Cells # 0.0 K/mm3 08/14/16 08:51 WBC Morphology Not Reportable 08/14/16 08:51 Hypersegmented Neuts Not Reportable 08/14/16 08:51 Hyposegmented Neuts Not Reportable 08/14/16 08:51 Hypogranular Neuts Not Reportable 08/14/16 08:51 Smudge Cells Not Reportable 08/14/16 08:51 Toxic Granulation Not Reportable 08/14/16 08:51 Toxic Vacuolation Not Reportable 08/14/16 08:51 Dohle Bodies Not Reportable 08/14/16 08:51 Pelger-Huet Anomaly Not Reportable 08/14/16 08:51 Ritesh Rods Not Reportable 08/14/16 08:51 Platelet Estimate Cons 08/14/16 08:51 Clumped Platelets Not Reportable 08/14/16 08:51 Plt Clumps, EDTA Not Reportable 08/14/16 08:51 Large Platelets 1+ 08/14/16 08:51 Giant Platelets Not Reportable 08/14/16 08:51 Platelet Satelliting Not Reportable 08/14/16 08:51 Plt Morphology Comment Not Reportable 08/14/16 08:51 RBC Morphology Not Reportable 08/14/16 08:51 Dimorphic RBCs Not Reportable 08/14/16 08:51 Polychromasia Few 08/14/16 08:51 Hypochromasia Not Reportable 08/14/16 08:51 Poikilocytosis Not Reportable 08/14/16 08:51 Anisocytosis 1+ 08/14/16 08:51 Microcytosis Not Reportable 08/14/16 08:51 Macrocytosis Not Reportable 08/14/16 08:51 Spherocytes Not Reportable 08/14/16 08:51 Pappenheimer Bodies Not Reportable 08/14/16 08:51 Sickle Cells Not Reportable 08/14/16 08:51 Target Cells Not Reportable 08/14/16 08:51 Tear Drop Cells Not Reportable 08/14/16 08:51 Ovalocytes Not Reportable 08/14/16 08:51 Helmet Cells Not Reportable 08/14/16 08:51 [place] Bodies Not Reportable 08/14/16 08:51 [place] Rings Not Reportable 08/14/16 08:51 Lety Cells Not Reportable 08/14/16 08:51 Bite Cells Not Reportable 08/14/16 08:51 Crenated Cell Not Reportable 08/14/16 08:51 Elliptocytes Not Reportable 08/14/16 08:51 Acanthocytes (Spur) Not Reportable 08/14/16 08:51 Rouleaux Not Reportable 08/14/16 08:51 Hemoglobin C Crystals Not Reportable 08/14/16 08:51 Schistocytes Not Reportable 08/14/16 08:51 Malaria parasites Not Reportable 08/14/16 08:51 [place] Bodies Not Reportable 08/14/16 08:51 Hem Pathologist Commnt No 08/14/16 08:51 VBG pH 7.375 (7.320-7.420) 08/05/16 22:59 Sodium 142 mmol/L (137-145) 08/16/16 05:55 Potassium 3.4 mmol/L (3.6-5.0) L 08/16/16 05:55 Chloride 106.6 mmol/L (98-107) 08/16/16 05:55 Carbon Dioxide 22 mmol/L (22-30) 08/16/16 05:55 Anion Gap 17 mmol/L 08/16/16 05:55 BUN 6 mg/dL (7-17) L 08/16/16 05:55 Creatinine 0.5 mg/dL (0.7-1.2) L 08/16/16 05:55 Estimated GFR > 60 ml/min 08/16/16 05:55 BUN/Creatinine Ratio 12.00 % 08/16/16 05:55 Glucose 208 mg/dL (65-100) H 08/16/16 05:55 POC Glucose 163 (70-105) H 08/17/16 11:44 Lactic Acid 2.4 mmol/L (0.7-2.0) H* 08/05/16 22:59 Calcium 8.4 mg/dL (8.4-10.2) 08/16/16 05:55 Phosphorus 2.6 mg/dL (2.5-4.5) 08/16/16 05:55 Magnesium 1.7 mg/dL (1.7-2.3) 08/15/16 05:25 Total Bilirubin 1.0 mg/dL (0.1-1.2) 08/10/16 07:07 AST 29 units/L (5-40) 08/10/16 07:07 ALT 27 units/L (7-56) 08/10/16 07:07 Alkaline Phosphatase 109 units/L (35-129) 08/10/16 07:07 Total Protein 6.6 g/dL (6.3-8.2) 08/10/16 07:07 Albumin 3.0 g/dL (3.9-5) L 08/10/16 07:07 Albumin/Globulin Ratio 0.8 % 08/10/16 07:07 Lipase 13 units/L (13-60) 08/05/16 22:59 Urine Color Straw (Yellow) 08/05/16 22:35 Urine Turbidity Clear (Clear) 08/05/16 22:35 Urine pH 8.0 (5.0-7.0) H 08/05/16 22:35 Ur Specific [place] 1.022 (1.003-1.030) 08/05/16 22:35 Urine Protein <15 mg/dl mg/dL (Negative) 08/05/16 22:35 Urine Glucose (UA) >=500 mg/dL (Negative) 08/05/16 22:35 Urine Ketones 20 mg/dL (Negative) 08/05/16 22:35 Urine Blood Neg (Negative) 08/05/16 22:35 Urine Nitrite Neg (Negative) 08/05/16 22:35 Urine Bilirubin Neg (Negative) 08/05/16 22:35 Urine Urobilinogen < 2.0 mg/dL (<2.0) 08/05/16 22:35 Ur Leukocyte Esterase Neg (Negative) 08/05/16 22:35 Urine WBC (Auto) 2.0 /HPF (0.0-6.0) 08/05/16 22:35 Urine RBC (Auto) 3.0 /HPF (0.0-6.0) 08/05/16 22:35 U Epithel Cells (Auto) < 1.0 /HPF (0-13.0) 08/05/16 22:35 Blood Type A POSITIVE 08/07/16 11:50 Antibody Screen Negative 08/07/16 11:50
[2016-08-17] MEDS ORDERED: CEPACOL X STRENGTH MM PRN (12:06)
--- NOTE | 2016-08-17 16:03 | Progress Note ---
Subjective - Reason for Consult Consult date: 08/17/16 Reason for consult: psychiatric follow up - Chief Complaint Chief complaint: cc: "I want to be at my best." 61 year old BF with no prior psych history presented to [facility] for abdominal pain. The patient was able to answer all my questions today. Her speech is soft. She states that she is not physically well enough to go back home because she lives alone. She states her family is supportive. She also reports that she plans to go to short-term rehabilitation. She is alert and oriented to person place time and situation. She denies recent hallucinations. She did describe an episode when she took pain medication one year ago and she had visual hallucinations at that time. She was also able to discuss her recent lab results. She said somebody explained to her that her sodium and potassium were abnormal. She states that recently she has not been sleeping well. She reports that it is improving. She denies concerns with her appetite. She stated that she has had anxiety previously and "nerve spasms." She reports being on a medication for that which also helped her sleep. She does not recall the name. She states that if she ever feels down or anxious that she relies on her praveen in God to bring her peace and calmness. 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 In 2013 she states that she fell and broke her leg and has not been doing well ever since. She also discussed how she was and then her wanted her to pay for the divorce. Mental Status Exam - Vital signs Last Vital Signs Temp 98.3 F 08/17/16 15:37 Pulse 97 H 08/17/16 15:37 Resp 18 08/17/16 15:37 BP 154/72 08/17/16 15:37 Pulse Ox 97 08/17/16 15:37 - Exam Narrative exam: [place]: 3 out of 3 Five-minute recall: 0 out of 3 Serial sevens: 2 Immediate numeric recall: 5 out of 7 She wrote a complete sentence: I want my brother. She follows written command Three-step verbal command: 2 out of 3 Orientation: time, place, person Affect: normal Mood: appropriate Thought content: other (no suicidal or homicidal ideation) Thought Process: Intact Perceptions: none Speech: other (soft) Concentration: focused Motor activity: normal Level of consciousness: alert Memory: Recent Intact, Remote Intact Sleep Symptoms: Insomnia Interaction: cooperative, pleasant Assessment and Plan Patient was able to provide a significant amount of information today regarding her history and most recent condition. There does not appear to have persistent agitation or delirium. She denies severe depression or anxiety. She describes some negative feelings about not being as independent as she has been in the past. Consider a depressive disorder. Plan: Follow-up to determine if she is consistently lucid Continue Remeron 7.5 mg at bedtime for the treatment of insomnia
[2016-08-17] MEDS: ZOCOR PO SCH (22:09)
[2016-08-17] MEDS: MORPHINE IV PRN (22:15)
[2016-08-17] MEDS: REMERON SOLUTAB PO SCH (22:48)
[2016-08-17] MEDS: LEVEMIR SUB-Q SCH (22:50)
[2016-08-18] MEDS: NACL 0.9% 1000 ML 1,000 ML IV SCH (02:11)
[2016-08-18] MEDS: ZOSYN/NS 4.5GM/100ML 4.5 GM/100 ML VIAL IV SCH ×2 (02:12→15:41)
[2016-08-18] MEDS: APRESOLINE PO SCH ×3 (06:30→21:47)
[2016-08-18] MEDS: NOVOLOG SUB-Q SCH ×4 (09:05→23:12)
[2016-08-18] MEDS: ASPIRIN PO SCH (09:42)
[2016-08-18] MEDS: K-DUR PO SCH (09:42)
[2016-08-18] MEDS: PEPCID PO SCH ×2 (09:43→21:48)
[2016-08-18] MEDS: LOVENOX SUB-Q SCH (09:43)
--- NOTE | 2016-08-18 14:14 | Progress Note ---
Subjective - Reason for Consult Consult date: 08/18/16 Reason for consult: psychiatric follow-up - Chief Complaint Chief complaint: 61 year old BF with no prior psych history presented to [facility] for abdominal pain and subsequently had surgery. The time of initial consultation there was concern she was agitated and confused. Yesterday she was lucid and provided a significant amount of history chronologically, including up to the current events. Today the staff is concerned that she has been yelling and taking her gown off. The patient is aware that she is going to a rehabilitation. The patient offers explanations about her behavior. She states that if she has to ask for help to go to the bathroom then she needs someone to come when she calls. She states she doesn't want anyone to yell at her if she gets up on her own and falls on her face. She reports hot flashes and then takes her clothes off of that time. She talked about her plans to go with her family to [place] once she is well. Mental Status Exam - Vital signs Last Vital Signs Temp 98.3 F 08/18/16 09:30 Pulse 105 H 08/18/16 09:30 Resp 16 08/18/16 09:30 BP 137/65 08/18/16 09:30 Pulse Ox 97 08/18/16 09:30 - Exam Narrative exam: No suicidal or homicidal ideation. No auditory or visual hallucinations. She could not recall today's date. She is aware of her current circumstances and the events leading up to her hospitalization. Orientation: place, person Affect: other (irritable) Mood: congruent with affect Thought content: other (perseverative) Thought Process: Tangential Perceptions: none Speech: other (loud at times) Concentration: distractible Motor activity: normal Level of consciousness: alert Memory: Remote Intact Sleep Symptoms: None Interaction: cooperative Assessment and Plan Impression: Patient is irritable and agitated at times. The agitation does not appear to be in the context of delirium. It is likely due to her lack of independence in toileting and ambulation. She was previously independent and lived alone. The patient reports going to a rehabilitation facility since she cannot take care of herself at this time without assistance. Plan: The patient's presentation yesterday and today were discussed with Dr. Coronado. Continue Remeron 7.5 mg at bedtime for the treatment of insomnia No additional medications are indicated. She does not meet criteria for an inpatient psychiatric facility Encourage patient to voice her needs when a staff member is in the room and as needed with use of the call light. She would likely benefit from cognitive exercises such as puzzles, drawing, coloring, or reading.
--- NOTE | 2016-08-18 15:03 | Progress Note ---
Assessment and Plan Assessment and plan: --Slurring speech for the last couple of weeks[reported by patient's sister from out of town] Normal speech a few weeks ago, CT head without contrast negative, we'll check MRI to rule out CVA Not a candidate for TPA since the symptoms are few weeks old Aspirin and statin --Hypokalemia/hypophosphatemia Replace per protocol monitor levels --Small bowel obstruction status post surgery Tolerating soft diet, surgically cleared for discharge Physical therapy, placement to halfway/rehabilitation --Metabolic encephalopathy Significantly improved, patient more alert and awake Secondary to underlying disease process, improved --Type 2 diabetes mellitus Uncontrolled, Accu-Chek sliding scale coverage and ADA diet Increase insulin dose to 15 units Lantus --DVT prophylaxis with Lovenox and SCDs --CODE STATUS, full code Onsets and recommendations noted and appreciated Physical therapy occupational therapy DC planning halfway placement Follow MRI if negative DC and transfer to halfway once finalized by the family Plan of care discussed with the patient, sister from out of town Answered all their questions History Interval history: Patient seen and evaluated medical records reviewed Today patient is slightly confused, pulling out clothes saying it is hot Responding to simple questions appropriately, sometimes confused Alert and awake not in acute distress No new events reported by the nursing staff Hospitalist Physical - Constitutional Vitals: Temp Pulse Resp BP Pulse Ox 98.3 F 105 H 16 137/65 97 08/18/16 09:30 08/18/16 09:30 08/18/16 09:30 08/18/16 09:30 08/18/16 09:30 General appearance: Present: no acute distress, well-nourished, other (slow speech) - EENT Eyes: Present: PERRL, EOM intact - Neck Neck: Present: supple, normal ROM - Respiratory Respiratory effort: normal Respiratory: negative: diminished, rales, rhonchi - Cardiovascular Rhythm: regular Heart Sounds: Present: S1 & S2 - Extremities Extremities: no ischemia, pulses intact, pulses symmetrical Peripheral Pulses: within normal limits - Abdominal General gastrointestinal: soft, non-tender, non-distended, normal bowel sounds - Integumentary Integumentary: Present: clear, warm - Psychiatric Psychiatric: appropriate mood/affect, cooperative, other (confused at times) - Neurologic Neurologic: moves all extremities Results - Labs CBC & Chem 7: 08/14/16 08:51 08/16/16 05:55 Labs: Laboratory Last Values WBC 9.9 K/mm3 (4.5-11.0) 08/14/16 08:51 RBC 3.98 M/mm3 (3.65-5.03) 08/14/16 08:51 Hgb 11.9 gm/dl (10.1-14.3) 08/14/16 08:51 Hct 36.1 % (30.3-42.9) 08/14/16 08:51 MCV 91 fl (79-97) 08/14/16 08:51 MCH 30 pg (28-32) 08/14/16 08:51 MCHC 33 % (30-34) 08/14/16 08:51 RDW 14.3 % (13.2-15.2) 08/14/16 08:51 Plt Count 212 K/mm3 (140-440) 08/14/16 08:51 Lymph % (Auto) 13.8 % (13.4-35.0) 08/12/16 07:16 Sequoyah % (Auto) 14.0 % (0.0-7.3) H 08/12/16 07:16 Eos % (Auto) 0.3 % (0.0-4.3) 08/12/16 07:16 Baso % (Auto) 0.3 % (0.0-1.8) 08/12/16 07:16 Lymph # 1.7 K/mm3 (1.2-5.4) 08/12/16 07:16 Sequoyah # 1.7 K/mm3 (0.0-0.8) H 08/12/16 07:16 Eos # 0.0 K/mm3 (0.0-0.4) 08/12/16 07:16 Baso # 0.0 K/mm3 (0.0-0.1) 08/12/16 07:16 Add Manual Diff Complete 08/14/16 08:51 Total Counted 100 08/14/16 08:51 Seg Neutrophils % 71.6 % (40.0-70.0) H 08/12/16 07:16 Seg Neuts % (Manual) 63.0 % (40.0-70.0) 08/14/16 08:51 Band Neutrophils % 2.0 % 08/14/16 08:51 Lymphocytes % (Manual) 22.0 % (13.4-35.0) 08/14/16 08:51 Reactive Lymphs % (Man) 0 % 08/14/16 08:51 Monocytes % (Manual) 9.0 % (0.0-7.3) H 08/14/16 08:51 Eosinophils % (Manual) 4.0 % (0.0-4.3) 08/14/16 08:51 Basophils % (Manual) 0 % (0.0-1.8) 08/14/16 08:51 Metamyelocytes % 0 % 08/14/16 08:51 Myelocytes % 0 % 08/14/16 08:51 Promyelocytes % 0 % 08/14/16 08:51 Blast Cells % 0 % 08/14/16 08:51 Nucleated RBC % Not Reportable 08/14/16 08:51 Seg Neutrophils # 8.6 K/mm3 (1.8-7.7) H 08/12/16 07:16 Seg Neutrophils # Man 6.2 K/mm3 (1.8-7.7) 08/14/16 08:51 Band Neutrophils # 0.2 K/mm3 08/14/16 08:51 Lymphocytes # (Manual) 2.2 K/mm3 (1.2-5.4) 08/14/16 08:51 Abs React Lymphs (Man) 0.0 K/mm3 08/14/16 08:51 Monocytes # (Manual) 0.9 K/mm3 (0.0-0.8) H 08/14/16 08:51 Eosinophils # (Manual) 0.4 K/mm3 (0.0-0.4) 08/14/16 08:51 Basophils # (Manual) 0.0 K/mm3 (0.0-0.1) 08/14/16 08:51 Metamyelocytes # 0.0 K/mm3 08/14/16 08:51 Myelocytes # 0.0 K/mm3 08/14/16 08:51 Promyelocytes # 0.0 K/mm3 08/14/16 08:51 Blast Cells # 0.0 K/mm3 08/14/16 08:51 WBC Morphology Not Reportable 08/14/16 08:51 Hypersegmented Neuts Not Reportable 08/14/16 08:51 Hyposegmented Neuts Not Reportable 08/14/16 08:51 Hypogranular Neuts Not Reportable 08/14/16 08:51 Smudge Cells Not Reportable 08/14/16 08:51 Toxic Granulation Not Reportable 08/14/16 08:51 Toxic Vacuolation Not Reportable 08/14/16 08:51 Dohle Bodies Not Reportable 08/14/16 08:51 Pelger-Huet Anomaly Not Reportable 08/14/16 08:51 Ritesh Rods Not Reportable 08/14/16 08:51 Platelet Estimate Cons 08/14/16 08:51 Clumped Platelets Not Reportable 08/14/16 08:51 Plt Clumps, EDTA Not Reportable 08/14/16 08:51 Large Platelets 1+ 08/14/16 08:51 Giant Platelets Not Reportable 08/14/16 08:51 Platelet Satelliting Not Reportable 08/14/16 08:51 Plt Morphology Comment Not Reportable 08/14/16 08:51 RBC Morphology Not Reportable 08/14/16 08:51 Dimorphic RBCs Not Reportable 08/14/16 08:51 Polychromasia Few 08/14/16 08:51 Hypochromasia Not Reportable 08/14/16 08:51 Poikilocytosis Not Reportable 08/14/16 08:51 Anisocytosis 1+ 08/14/16 08:51 Microcytosis Not Reportable 08/14/16 08:51 Macrocytosis Not Reportable 08/14/16 08:51 Spherocytes Not Reportable 08/14/16 08:51 Pappenheimer Bodies Not Reportable 08/14/16 08:51 Sickle Cells Not Reportable 08/14/16 08:51 Target Cells Not Reportable 08/14/16 08:51 Tear Drop Cells Not Reportable 08/14/16 08:51 Ovalocytes Not Reportable 08/14/16 08:51 Helmet Cells Not Reportable 08/14/16 08:51 Angelo-Sigurd Bodies Not Reportable 08/14/16 08:51 [place] Rings Not Reportable 08/14/16 08:51 Lety Cells Not Reportable 08/14/16 08:51 Bite Cells Not Reportable 08/14/16 08:51 Crenated Cell Not Reportable 08/14/16 08:51 Elliptocytes Not Reportable 08/14/16 08:51 Acanthocytes (Spur) Not Reportable 08/14/16 08:51 Rouleaux Not Reportable 08/14/16 08:51 Hemoglobin C Crystals Not Reportable 08/14/16 08:51 Schistocytes Not Reportable 08/14/16 08:51 Malaria parasites Not Reportable 08/14/16 08:51 Anson Bodies Not Reportable 08/14/16 08:51 Hem Pathologist Commnt No 08/14/16 08:51 VBG pH 7.375 (7.320-7.420) 08/05/16 22:59 Sodium 142 mmol/L (137-145) 08/16/16 05:55 Potassium 3.4 mmol/L (3.6-5.0) L 08/16/16 05:55 Chloride 106.6 mmol/L (98-107) 08/16/16 05:55 Carbon Dioxide 22 mmol/L (22-30) 08/16/16 05:55 Anion Gap 17 mmol/L 08/16/16 05:55 BUN 6 mg/dL (7-17) L 08/16/16 05:55 Creatinine 0.5 mg/dL (0.7-1.2) L 08/16/16 05:55 Estimated GFR > 60 ml/min 08/16/16 05:55 BUN/Creatinine Ratio 12.00 % 08/16/16 05:55 Glucose 208 mg/dL (65-100) H 08/16/16 05:55 POC Glucose 269 (70-105) H 08/18/16 11:48 Lactic Acid 2.4 mmol/L (0.7-2.0) H* 08/05/16 22:59 Calcium 8.4 mg/dL (8.4-10.2) 08/16/16 05:55 Phosphorus 2.6 mg/dL (2.5-4.5) 08/16/16 05:55 Magnesium 1.7 mg/dL (1.7-2.3) 08/15/16 05:25 Total Bilirubin 1.0 mg/dL (0.1-1.2) 08/10/16 07:07 AST 29 units/L (5-40) 08/10/16 07:07 ALT 27 units/L (7-56) 08/10/16 07:07 Alkaline Phosphatase 109 units/L (35-129) 08/10/16 07:07 Total Protein 6.6 g/dL (6.3-8.2) 08/10/16 07:07 Albumin 3.0 g/dL (3.9-5) L 08/10/16 07:07 Albumin/Globulin Ratio 0.8 % 08/10/16 07:07 Lipase 13 units/L (13-60) 08/05/16 22:59 Urine Color Straw (Yellow) 08/05/16 22:35 Urine Turbidity Clear (Clear) 08/05/16 22:35 Urine pH 8.0 (5.0-7.0) H 08/05/16 22:35 Ur Specific Rush 1.022 (1.003-1.030) 08/05/16 22:35 Urine Protein <15 mg/dl mg/dL (Negative) 08/05/16 22:35 Urine Glucose (UA) >=500 mg/dL (Negative) 08/05/16 22:35 Urine Ketones 20 mg/dL (Negative) 08/05/16 22:35 Urine Blood Neg (Negative) 08/05/16 22:35 Urine Nitrite Neg (Negative) 08/05/16 22:35 Urine Bilirubin Neg (Negative) 08/05/16 22:35 Urine Urobilinogen < 2.0 mg/dL (<2.0) 08/05/16 22:35 Ur Leukocyte Esterase Neg (Negative) 08/05/16 22:35 Urine WBC (Auto) 2.0 /HPF (0.0-6.0) 08/05/16 22:35 Urine RBC (Auto) 3.0 /HPF (0.0-6.0) 08/05/16 22:35 U Epithel Cells (Auto) < 1.0 /HPF (0-13.0) 08/05/16 22:35 Blood Type A POSITIVE 08/07/16 11:50 Antibody Screen Negative 08/07/16 11:50
[2016-08-18] MEDS ORDERED: ATIVAN PO PRN (16:38)
[2016-08-18] MEDS: ZOCOR PO SCH (21:48)
[2016-08-18] MEDS: REMERON SOLUTAB PO SCH (21:50)
[2016-08-18] MEDS: LEVEMIR SUB-Q SCH (23:22)
[2016-08-19 04:56] LABS: Hematocrit 34.6 % (30.3-42.9); Hemoglobin 11.3 gm/dl (10.1-14.3); Mean Corpuscular HGB Conc 33 % (30-34); Mean Corpuscular Hemoglobin 29 pg (28-32); Mean Corpuscular Volume 90 fl (79-97); Platelet Count 315 K/mm3 (140-440); Red Blood Count 3.84 M/mm3 (3.65-5.03); Red Cell Distribution Width 14.5 % (13.2-15.2); White Blood Count 11.6 K/mm3 (4.5-11.0)
[2016-08-19 04:57] LABS: Basophils % (Auto) 0.6 % (0.0-1.8); Eosinophils % (Auto) 0.9 % (0.0-4.3)
[2016-08-19 05:14] LABS: Anion Gap 16 mmol/L; Blood Urea Nitrogen 6 mg/dL (7-17); Calcium 8.4 mg/dL (8.4-10.2); Carbon Dioxide 23 mmol/L (22-30); Chloride 102.9 mmol/L (98-107); Glucose 188 mg/dL (65-100); Magnesium 1.7 mg/dL (1.7-2.3); Phosphorous 2.3 mg/dL (2.5-4.5); Potassium 3.9 mmol/L (3.6-5.0); Sodium 138 mmol/L (137-145)
[2016-08-19] MEDS: APRESOLINE PO SCH ×2 (06:57→15:27)
[2016-08-19] MEDS: NOVOLOG SUB-Q SCH ×2 (08:15→12:17)
[2016-08-19] MEDS: PEPCID PO SCH (09:25)
[2016-08-19] MEDS: ASPIRIN PO SCH (09:25)
[2016-08-19] MEDS: LOVENOX SUB-Q SCH (09:25)
[2016-08-19] MEDS: K-DUR PO SCH (09:25)
--- NOTE | 2016-08-19 12:08 | Discharge Summary ---
Providers - Providers Date of Admission: 08/06/16 06:02 Date of discharge: 08/19/16 Attending physician: NAHEED DOVE 08/06/16 12:04 Consult to Physician [CONS] Routine Consulting Provider: SRINIVAS SMITH Reason For Exam: Small Bowel Obstruction Place consult to:: Srinivas Smith Notified:: DR SMITH Phone number called:: [phone] Was contact made?: Yes If yes, spoke with:: DR SMITH Time called:: 12:05 08/13/16 12:57 Physical Therapy Evaluation and Treat [CONS] Routine Comment: Reason For Exam: ambulate 08/16/16 11:27 psychiatry consult [Consult to Mental Health] [CONS] Routine Reason For Exam: depression/ Place consult to:: palliative care nurse practitioner Notified:: ian Phone number called:: [phone] Was contact made?: Yes If yes, spoke with:: ian Time called:: 11:37 Primary care physician: ENVIRONMENTAL SCIENCE TECHNICIAN Hospitalization Condition: Fair Disposition: DC/[place] SNF [facility] Core Measure Documentation - Palliative Care Palliative Care/ Comfort Measures: Not Applicable - Core Measures Any of the following diagnoses?: none Exam - Constitutional Vitals: Temp Pulse Resp BP Pulse Ox 99.1 F 96 H 20 179/82 98 08/19/16 09:40 08/19/16 09:40 08/19/16 09:40 08/19/16 09:40 08/19/16 09:40 Plan Diet: other (soft diet , advance as tolerated) Special Instructions: physical therapy Follow up with: PRIMARY CAREMD [Primary Care Provider] - 3-5 Days SRINIVAS SMITH MD [Staff Physician] - 7 Days Prescriptions: Mirtazapine Solutab [Remeron Solutab] 7.5 mg PO QHS #14 [email or web address]
[2016-08-19] MEDS ORDERED: K-PHOS NEUTRAL PO SCH (14:00)
[2016-08-19 17:09] VITALS: BP 128/63
== END 2016-08-19 16:00 | DRG 329 ==
LOC: ED 21:38 → 3A 08-06 06:02
PROVIDERS: ADMIT Internal Medicine; ATTEND Internal Medicine
PROC: 0DT80ZZ Resection of Small Intestine, Open Approach (ICD-10-PCS; principal; 2016-08-09)
PROC: 0DNW0ZZ Release Peritoneum, Open Approach (ICD-10-PCS; 2016-08-09)
DX: K56.60 Unspecified intestinal obstruction (principal); K55.011 Focal (segmental) acute (reversible) ischemia of small intestine; G93.41 Metabolic encephalopathy; E87.2 Acidosis; E44.0 Moderate protein-calorie malnutrition; E87.1 Hypo-osmolality and hyponatremia; E87.0 Hyperosmolality and hypernatremia; E11.65 Type 2 diabetes mellitus with hyperglycemia; K21.9 Gastro-esophageal reflux disease without esophagitis; E87.6 Hypokalemia; I10 Essential (primary) hypertension; E78.00 Pure hypercholesterolemia, unspecified; E83.39 Other disorders of phosphorus metabolism; M19.90 Unspecified osteoarthritis, unspecified site; E78.5 Hyperlipidemia, unspecified; E86.0 Dehydration; K56.7 Ileus, unspecified; R47.81 Slurred speech; G47.00 Insomnia, unspecified; Z79.899 Other long term (current) drug therapy; Z86.73 Personal history of transient ischemic attack (TIA), and cerebral infarction without residual deficits; Z90.49 Acquired absence of other specified parts of digestive tract; Z82.49 Family history of ischemic heart disease and other diseases of the circulatory system; Z68.30 Body mass index [BMI] 30.0-30.9, adult
CPT/HCPCS: 36415; 70450; 70551; 74022; 74177; 80048; 80053; 81001; 82140; 82805; 82962; 83690; 83735; 84100; 85007; 85025; 86850; 86900; 86901; 88307; 94760; 96374; 96375; C9113; J0330; J0360; J0690; J1170; J1650; J1815; J1818; J1885; J2060; J2270; J2370; J2405; J2543; J2704; J2710; J3010; J3480; J7030; J7040; J7070; Q9967